=== PATIENT | female | born 1960 | race Caucasian/White ===

== ENCOUNTER 2023-09-22 10:24 | Inpatient (IN) | payer OTHER, SELFPAY ==
[2023-09-21] VITALS (7 sets, daily range): BP systolic 96–105; BP diastolic 52–57; BMI 41.6
--- NOTE | 2023-09-21 18:05 | ED.GENMED ---
History of Present Illness
<LEONORA Moreira - Last Filed: 09/21/23 23:14>
General
Chief Complaint: Abdominal Pain
Source: patient
Exam Limitations: none
Time Seen by Provider: 09/21/23 17:55
Travel History
Have you had any contact with someone who has COVID-19?: No
Do you have any symptoms of coronavirus? Fever > 100 degrees, chills, cough, shortness of breath, sore throat, loss of taste or smell, muscle aches, or headache?: Yes
Symptoms:: .
History of Present Illness
History of Present Illness:
This is a 62 year old female that comes in with Multiple complaints. States that she started with abd pain around 1pm in the middle of her abd. States that she also feels like she has a broken collar bone but there was no injury. States that she
was doing a lot of lifting and moving or furniture. States that this is like a muscle spasm. States that she had nausea, vomiting, and diarrhea. Denies any fever, chills, chest pain, SOB, headache, dizziness, urinary burning. Denies any falls or
injury.
Past History
<LEONORA Moreira - Last Filed: 09/21/23 23:14>
Past History
ED Past Medical History: HTN, Hypercholesterolemia, NIDDM, Renal failure (Remote history of renal failure secondary to dehydration), Hypothyroidism and Psychiatric (Anxiety)
ED Past Surgical History: Cholecystectomy and Other (Lumpectomy for benign disease)
Social History
Tobacco: Smoker
Alcohol: Occasional
Personal:
Living: with family
Family History
Family History: Negative Diabetes, Hypertension, Early CAD, Asthma or Cancer
Review of Systems
<LEONORA Moreira - Last Filed: 09/21/23 23:14>
Review of Systems
All Other Systems: ROS reviewed and negative except as documented in HPI and ROS
Constitutional: Reports no symptoms; Denies fever or chills
EENT: Reports no symptoms
Respiratory: Reports no symptoms; Denies cough or trouble breathing
Cardiac: Denies chest pain
ABD/GI: Reports abdominal pain, nausea, vomiting and diarrhea
: Reports no symptoms
Musculoskeletal: Reports other (right shoulder pain)
Skin: Reports no symptoms
Neurological: Reports no symptoms; Denies dizzy or headache
Psychiatric: Reports no symptoms
Phy Exam
<LEONORA Moreira - Last Filed: 09/21/23 23:14>
General Physical Exam
General Presentation: no apparent distress
General age: appears stated age
General Skin: warm and dry
General Habitus: obese
General Mental: alert
General Hydration: dry mucous membranes
ENT Exam
ENT Exam: TM's normal, pharynx normal and neck supple
Eye Exam
Eye Exam: EOMI
Cardiovascular Exam
Cardiovascular Exam: regular rate/rhythm, no edema and normal peripheral pulses
Pulmonary Exam
Pulmonary Exam: no respiratory distress, chest non tender, no rhonchi, no wheezing, no cough and decreased breath sounds (right sided with rales at bases)
Gastrointestinal Exam
Gastrointestinal Exam: normal bowel sounds, soft, no organomegaly, no pulsatile mass, non distended and tender (Generalized tenderness with palpation)
Musculoskeletal Exam
Musculoskeletal Exam: full ROM and no edema
Skin Exam
Skin Exam: normal color, warm/dry, no rash and no petechia
Psychiatric Exam
Psychiatric Exam: normal mood/affect
Course
<LEONORA Moreira - Last Filed: 09/21/23 23:14>
Orders/Labs/Results
Orders:
Orders
09/21/23 18:03
Electrocardiogram (*1) Urgent
Reason for Study: Abdominal Pain
EKG- Treatment ONCE
CR Chest - 2 Views Urgent
Comment:
Reason For Exam: rales right base, decreased breath Shoulder pain
09/21/23 18:04
CT Abd/pelvis W Iv Cont Urgent
Comment:
Reason For Exam: ABd pain
0.9% Sodium Chloride 1000 ml [Nss] 1,000 ml IV BOLUS
09/21/23 18:09
Complete Blood Count/With Diff Urgent
Comprehensive Metabolic Panel Urgent
Lipase Urgent
Comment: ADD ON
Troponin I Urgent
09/21/23 18:12
Ketorolac [Toradol] 30 mg IV NOW STA
09/21/23 19:19
Add On- LAB Urgent
Tests Added?: Lipase
09/21/23 20:15
Lactic Acid Urgent
09/21/23 21:30
Blood Culture Q30M
PARVEEN Source: Blood/Venous
Specimen Description:
09/21/23 21:38
Urinalysis Reflex To Culture Urgent
Date Specimen was Collected: 09/21/23
Time Specimen was Collected: 21:31
Urine Microscopic Reflex Cult Urgent
Urine Culture Urgent
PARVEEN Source: U
Specimen Description:
Date Specimen was Collected: 09/21/23
Time Specimen was Collected: 21:31
09/21/23 22:00
Blood Culture Q30M
PARVEEN Source: Blood/Venous
Specimen Description:
09/21/23 23:04
CefTRIAXone [Rocephin] 1,000 mg IV NOW STA
Abnormal Lab Results
09/21/23 09/21/23
18:09 21:38
WBC 26.0 H 10^3/uL
(4.8-10.8)
Plt Count 527 H 10^3/uL
(130-400)
Abs Immat Gran (auto) 0.2 H 10^3/uL
(0-0.05)
Absolute Neuts (auto) 23.6 H 10^3/uL
(1.4-6.5)
Absolute Monos (auto) 0.9 H 10^3/uL
(0.1-0.6)
Immature Gran % 0.7 H %
(0-0.5)
Neutrophils % 90.5 H %
(42.2-75.2)
Lymphocytes % 5.0 L %
(20.5-51.1)
Carbon Dioxide 18 L mmol/L
(22-30)
BUN 38 H mg/dl
(7-17)
Creatinine 1.4 H mg/dL
(0.6-1.0)
Glucose 123 H mg/dl
(70-99)
Urine Ketones 1+ A
(Negative)
Ur Occult Blood Reflex 1+ A
(Negative)
Urine Nitrite (Reflex) Positive A
(Negative)
Leukocyte Esterase Rfl 1+ A
(Negative)
Urine RBC 7-10 A /HPF
(0-2)
Urine WBC (Reflex) 16-20 A /HPF
(0-5)
Urine Bacteria (Reflex) Many A
(Negative)
09/21/23 18:09
09/21/23 18:09
Leukocytosis, Plt slightly elevated. Carbon dioxide low. Glucose nonfasting. Urine positive for infection. Troponin <0.012, Lactic acid normal at 1.3
Vital Signs
Initial and Last Documented VS:
Initial Vital Signs
Temp Pulse BP Pulse Ox
98.6 F 71 105/52 94
09/21/23 17:50 09/21/23 17:50 09/21/23 17:50 09/21/23 17:50
Last Documented Vital Signs
Temp Pulse BP Pulse Ox
98.6 F 89 98/57 93
09/21/23 17:50 09/21/23 21:00 09/21/23 21:00 09/21/23 21:00
<Júnior Voss MD - Last Filed: 09/21/23 21:29>
Orders/Labs/Results
Orders:
Orders
09/21/23 18:03
Electrocardiogram (*1) Urgent
Reason for Study: Abdominal Pain
EKG- Treatment ONCE
CR Chest - 2 Views Urgent
Comment:
Reason For Exam: rales right base, decreased breath Shoulder pain
09/21/23 18:04
CT Abd/pelvis W Iv Cont Urgent
Comment:
Reason For Exam: ABd pain
0.9% Sodium Chloride 1000 ml [Nss] 1,000 ml IV BOLUS
09/21/23 18:09
Complete Blood Count/With Diff Urgent
Comprehensive Metabolic Panel Urgent
Lipase Urgent
Comment: ADD ON
Troponin I Urgent
09/21/23 18:12
Ketorolac [Toradol] 30 mg IV NOW STA
09/21/23 19:19
Add On- LAB Urgent
Tests Added?: Lipase
09/21/23 20:15
Lactic Acid Urgent
09/21/23 21:30
Blood Culture Q30M
PARVEEN Source: Blood/Venous
Specimen Description:
09/21/23 21:38
Urinalysis Reflex To Culture Urgent
Date Specimen was Collected: 09/21/23
Time Specimen was Collected: 21:31
Urine Microscopic Reflex Cult Urgent
Urine Culture Urgent
PARVEEN Source: U
Specimen Description:
Date Specimen was Collected: 09/21/23
Time Specimen was Collected: 21:31
09/21/23 22:00
Blood Culture Q30M
PARVEEN Source: Blood/Venous
Specimen Description:
09/21/23 23:04
CefTRIAXone [Rocephin] 1,000 mg IV NOW STA
Abnormal Lab Results
09/21/23 09/21/23
18:09 21:38
WBC 26.0 H 10^3/uL
(4.8-10.8)
Plt Count 527 H 10^3/uL
(130-400)
Abs Immat Gran (auto) 0.2 H 10^3/uL
(0-0.05)
Absolute Neuts (auto) 23.6 H 10^3/uL
(1.4-6.5)
Absolute Monos (auto) 0.9 H 10^3/uL
(0.1-0.6)
Immature Gran % 0.7 H %
(0-0.5)
Neutrophils % 90.5 H %
(42.2-75.2)
Lymphocytes % 5.0 L %
(20.5-51.1)
Carbon Dioxide 18 L mmol/L
(22-30)
BUN 38 H mg/dl
(7-17)
Creatinine 1.4 H mg/dL
(0.6-1.0)
Glucose 123 H mg/dl
(70-99)
Urine Ketones 1+ A
(Negative)
Ur Occult Blood Reflex 1+ A
(Negative)
Urine Nitrite (Reflex) Positive A
(Negative)
Leukocyte Esterase Rfl 1+ A
(Negative)
Urine RBC 7-10 A /HPF
(0-2)
Urine WBC (Reflex) 16-20 A /HPF
(0-5)
Urine Bacteria (Reflex) Many A
(Negative)
09/21/23 18:09
09/21/23 18:09
Vital Signs
Initial and Last Documented VS:
Initial Vital Signs
Temp Pulse BP Pulse Ox
98.6 F 71 105/52 94
09/21/23 17:50 09/21/23 17:50 09/21/23 17:50 09/21/23 17:50
Last Documented Vital Signs
Temp Pulse BP Pulse Ox
98.6 F 89 98/57 93
09/21/23 17:50 09/21/23 21:00 09/21/23 21:00 09/21/23 21:00
<LEONORA Moreira - Last Filed: 09/21/23 23:14>
MDM/Problems Addressed
Differential Diagnosis Includes:
Muscle spasm. Enteritis,
MDM/Problems Addressed:
This is a 62 year old female that comes in with c/o abd pain and right shoulder pain. States that this started about 1pm today and has been constant. States that it also feels like she broke her collar bone but there was no injury.
Will check labs, chest pain, CT abd, Give IV fluids and pain medication.
Patient was seen by Dr. Voss. Back into see patient. Explained that her Urine does show infection. Patient will be given IV antibiotics and admitted. Hospitalist notified
Chronic conditions affecting care:
NA
Acute Exacerbation and/or Progression of Chronic Illness:
NA
<LEONORA Moreira - Last Filed: 09/21/23 23:14>
*Radiology
Radiology exam reviewed: radiology read reviewed (Chest-Mild elevation of right hemidiaphragm, unchanged. minimal left basilar subsegmental atelectasis. Pulmonary vascularity within the limits of normal. CT=Small volume free fluid in the abdomen
and small to moderate volume free fluid in the true pelvis. Markedly limited evaluation of intestinal ) and other (CT cont- evaluation of intestinal tract without oral contrast, without intestinal obstruction or free air. Some Small bowel fluid,
nonspecific, cannot exclude enteritis. Prior cholecystectomy. )
*Pulse Oximetry
Patient hypoxic: no
*Critical Care Note
Total Time (30-74mins, 75-104mins- exclusive of procedures): Not Applicable
ED Attending Note
<LEONORA Moreira - Last Filed: 09/21/23 23:14>
-
Portions of this chart may have been created with voice recognition software.� Occasional wrong word or��sound alike� substitutions may have occurred due to the inherent limitations of voice recognition software.
<Júnior Voss MD - Last Filed: 09/21/23 21:29>
ED Attending Note
Patient seen and examined by attending physician: Yes
I performed the substantive portion of visit, reviewed & personally made and approve the management plan that is documented in note by myself or EVI.: Yes
ED Attending Note:
62-year-old female with relatively sudden onset of abdominal pain associate with nausea vomiting followed by right shoulder pain about 1 PM today. Symptoms have persisted. No chest pain or shortness of breath. Some mild chronic cough.
No urinary symptoms.
On exam patient is nontoxic but does appear minimally uncomfortable. She has a few crackles in the right lung base. No CVA tenderness. Heart regular rate and rhythm. Abdomen elevated BMI mild to moderate epigastric tenderness. No rebound or
guarding no mass or hernia. She has an old scar in the right upper quadrant.
Labs and tests reviewed. Significant leukocytosis. She states she has had an elevated white count in the past although this white count is fairly significant. No obvious explanation at this time. She does have a few crackles in the right lung
base. Could this be an early clinical pneumonia?. Urinalysis pending. Warrants inpatient management given symptoms and leukocytosis
Discharge Plan
Departure
Patient Disposition: Admit
Date of Disposition: 09/21/23
Time of Disposition: 23:08
Admit to: Med/Surg
Presentation/result/management discussed w/ accepting MD/DO: Hospitalist
Patient with high blood pressure during this ER visit?: No
Condition: Good
Discharge Problem:
Abdominal pain, Urinary tract infection
Prescriptions:
No Action
cyclobenzaprine [Flexeril] 10 MG tablet
10 mg PO Q8HPRN PRN (Reason: pain) Qty: 14 0RF
hydrocodone-acetaminophen [Vicodin] 1 EACH tablet
1 ea PO Q6HPRN PRN (Reason: pain) Qty: 14 0RF
tramadol 50 MG tablet
50 mg PO Q6HPRN PRN (Reason: pain) Qty: 14 0RF
Referrals:
Soha Wagner, [Family Provider] -
Interventions
Interventions:
*Risk Screen - Suicide Last Done: 09/21/23 17:57
*General Assessment Last Done: 09/21/23 17:57
*Neglect/Abuse Screening Last Done: 09/21/23 17:57
ED- Fall Risk Assessment Last Done: 09/21/23 18:13
*ED COVID-19 Vaccine History Last Done: 09/21/23 17:57
ZE-Umyipx-Zvbmohvpds Assessment Last Done: 09/21/23 18:13
Discharge Date and Time
Print Language: YORUBA
[2023-09-21] MEDS: NSS 1000 IV (18:11)
[2023-09-21 18:31] LABS: % Basophils 0.2 % (0-2); % Eosinophils 0.2 % (0-6); % Immature Granulocytes 0.7 % (0-0.5); % Monocytes 3.4 % (1.7-9.3); % Neutrophils 90.5 % (42.2-75.2); Absolute Basophils 0.1 10^3/uL (0-0.2); Absolute Immature Granulocytes 0.2 10^3/uL (0-0.05); Absolute Lymphocytes 1.3 10^3/uL (1.2-3.4); Absolute Monocytes 0.9 10^3/uL (0.1-0.6); Absolute Neutrophils 23.6 10^3/uL (1.4-6.5); Hematocrit 41.8 % (37.0-47.0); Mean Corp Hgb Conc. 33.5 g/dL (33.0-37.0); Mean Corpuscular Volume 86.5 fL (81.0-99.0); Mean Platelet Volume 9.4 fL (7.4-10.4); Nucleated Red Blood Cells % 0 %; Platelet Count 527 10^3/uL (130-400); Red Blood Cell Count 4.83 10^6/uL (4.20-5.40); Red Cell Dist. Width 13.6 % (11.5-14.5)
[2023-09-21 18:48] LABS: ALT (SGPT) 12 U/L (0-35); AST (SGOT) 22 U/L (14-36); Albumin 4.1 g/dl (3.5-5.0); Alkaline Phosphatase 101 U/L (38-126); Blood Urea Nitrogen 38 mg/dl (7-17); Carbon Dioxide 18 mmol/L (22-30); Chloride 105 mmol/L (98-107); Estimated Creatinine Clearance 52 ml/min; Glucose 123 mg/dl (70-99); Potassium 3.6 mmol/L (3.5-5.1); Sodium 139 mmol/L (135-145); Total Bilirubin 0.6 mg/dl (0.2-1.3); Total Protein 7.3 g/dl (6.3-8.2); eGFR 43.07
[2023-09-21] MEDS: TORADOL 30 MG IV (18:50)
[2023-09-21 18:59] LABS: Troponin I < 0.012 ng/ml
[2023-09-21 19:57] LABS: Lipase 46 U/L (23-300)
[2023-09-21 20:36] LABS: Lactic Acid 1.3 mmol/L (0.7-2.0)
[2023-09-21 21:43] LABS: Urine Albumin Trace (Neg - Trace); Urine Bilirubin Negative (Negative); Urine Character Slightly Cloudy (Clear); Urine Color Yellow; Urine Glucose Negative (Negative); Urine Ketone 1+ (Negative); Urine Leukocyte 1+ (Negative); Urine Nitrite Positive (Negative); Urine Occult Blood 1+ (Negative); Urine Urobilinogen Negative (Neg - 1+)
[2023-09-21 21:51] LABS: Urine Bacteria Many (Negative); Urine Squamous Cell 16-20 /LPF (Few); Urine White Cell 16-20 /HPF (0-5)
[2023-09-21] MEDS: TYLENOL 1000 MG PO (23:17)
[2023-09-21] MEDS: ROCEPHIN 1000 MG IV (23:24)
--- NOTE | 2023-09-21 23:31 | HPS.HSE ---
Family Physician
-
Family Physician: Soha Wagner
Chief Complaint
-
abdominal pain
History of Present Illness
62-year-old female past medical history of hypertension, hypercholesteremia, diabetes, anxiety/depression, hypothyroidism presenting with multiple complaints. Her main complaint is abdominal pain starting at 1 PM today in the middle of her abdomen.
This was also associated with an episode of profuse watery diarrhea and vomiting. She had a cheeseburger and fries at [employer] at around 1:30 PM but this was after her symptoms started. She denies any fevers or chills. She denies any urinary
burning or frequency.
She also complains of pain in the area of her right collarbone with radiation of her pain to the shoulder and a little bit to the neck. Pain is worse when she lifts her right upper extremity upwards. She was doing a lot of lifting rocks and plants
and furniture yesterday which she thinks is responsible for the pain.
She denies chest pain, shortness of breath, headache, dizziness.
Medical History
Past Medical History
Past Medical History: Reports Other (hypertension, hypercholesteremia, diabetes, anxiety/depression, hypothyroidism)
Past Surgical History: Reports Cholecystectomy
Social History
Tobacco: Non-smoker
Alcohol: None
Drug: None
Family History
Family History: Not pertinent
Allergies / Home Medications
Allergies reflects when Allergies were last updated in [facility].
Home Medications with original date entered in [facility]
Allergy/Medication List:
Allergies
Allergy/AdvReac Type Severity Reaction Status Date / Time
NKA - No Known Allergies Allergy Severe Unknown Uncoded 09/21/23 17:56
Home Medications
alprazolam 0.25 mg tablet 0.25 mg PO BID PRN anxiety 09/21/23
amlodipine 10 mg tablet 10 mg PO DAILY 09/21/23
atenolol 100 mg-chlorthalidone 25 mg tablet 1 tab PO DAILY 09/21/23
benazepril 20 mg tablet 20 mg PO DAILY 09/21/23
levothyroxine 150 mcg tablet 150 mcg PO DAILY 09/21/23
paroxetine HCl 40 mg tablet 40 mg PO DAILY 09/21/23
simvastatin 10 mg tablet 10 mg PO DAILY 09/21/23
tirzepatide 10 mg/0.5 mL subcutaneous pen injector (Mounjaro) 10 mg SC TU@0800 09/21/23
Review of Systems
-
Constitutional: Reports No Symptoms
EENT: Reports No Symptoms
Respiratory: Reports No Symptoms
Cardiac: Reports No Symptoms
Abdomen/GI: Reports See HPI
: Reports No Symptoms
Musculoskeletal: Reports No Symptoms
Skin: Reports No Symptoms
Neurological: Reports No Symptoms
Endocrine: Reports No Symptoms
Hematologic/Lymphatic: Reports No Symptoms
Psych: Reports No Symptoms
Physical Exam
Vital Signs
Vital Signs
Temp Pulse BP Pulse Ox
98.6 F 89 98/57 93
09/21/23 17:50 09/21/23 21:00 09/21/23 21:00 09/21/23 21:00
Physical Exam
General: Well Developed, Well Nourished and No Apparent Distress
HEENT: NormoCephalic, Moist mucous membranes and Atraumatic
Respiratory: Clear
Cardiac: S1/S2 and Regular Rhythm; No Murmur or Rub
GI: Soft, Non Distended, Normal Bowel Sounds and Tender; No Organomegaly
Rectal: Deferred by Provider
Musculoskeletal: No Clubbing, No Cyanosis, No Edema and Other (right sternocleidomastoid tenderness, right shoulder tenderness )
Skin: No Rash
Neuro: Nonfocal/grossly intact
Laboratory Results
-
09/21/23 18:09
09/21/23 18:09
Laboratory Results
Lactic Acid Cancelled 09/21/23 21:27
Total Bilirubin 0.6 mg/dl (0.2-1.3) 09/21/23 18:09
AST 22 U/L (14-36) 09/21/23 18:09
ALT 12 U/L (0-35) 09/21/23 18:09
Alkaline Phosphatase 101 U/L (38-126) 09/21/23 18:09
Troponin I < 0.012 ng/ml 09/21/23 18:09
Lipase 46 U/L (23-300) 09/21/23 18:09
Data Reviewed
-
Lab Data: Labs Reviewed by me
Old Records: Reviewed
Impression/Plan
-
IMPRESSION:
PLAN:
# Likely gastroenteritis
-CT scan shows small volume free fluid in the abdomen small to moderate volume free fluid in the true pelvis, some small bowel fluid nonspecific cannot exclude enteritis
-Lipase negative
-N.p.o.
-No further diarrhea
-Check stool culture, norovirus if recurrent diarrhea
-IV fluids given
#Urinary tract infection
-Asymptomatic
-UA shows slightly cloudy urine, positive nitrates, 16-20 WBCs
-Check urine culture, blood cultures
-Ceftriaxone for now
# RYLEY versus CKD
-Continue IV fluids
-Hold chlorthalidone, benazepril
# Muscle soreness of sternocleidomastoid secondary to lifting
-Muscle is sore and tender to palpation
-Doubt rotator cuff injury
-Tylenol, ibuprofen for pain, ketorolac given
Essential hypertension
-Continue amlodipine
-Continue atenolol
Hypercholesterolemia
-Continue statin
Type 2 diabetes
Hypothyroidism
-Continue levothyroxine
Anxiety/depression
-Continue Xanax
-Continue paroxetine
Full code
DVT prophylaxis�heparin
N.p.o.
[2023-09-22] VITALS (9 sets, daily range): BP systolic 91–114; BP diastolic 50–70; BMI 41.6
[2023-09-22] MEDS: NSS 1000 IV ×2 (00:58→11:15)
[2023-09-22 05:40] LABS: % Basophils 0.2 % (0-2); % Eosinophils 0.1 % (0-6); % Immature Granulocytes 0.6 % (0-0.5); % Lymphocytes 4.6 % (20.5-51.1); % Monocytes 3.2 % (1.7-9.3); % Neutrophils 91.3 % (42.2-75.2); Absolute Basophils 0.1 10^3/uL (0-0.2); Absolute Immature Granulocytes 0.2 10^3/uL (0-0.05); Absolute Lymphocytes 1.3 10^3/uL (1.2-3.4); Absolute Monocytes 0.9 10^3/uL (0.1-0.6); Absolute Neutrophils 25.8 10^3/uL (1.4-6.5); Hematocrit 39.9 % (37.0-47.0); Mean Corp Hgb Conc. 32.6 g/dL (33.0-37.0); Mean Corpuscular Hgb 28.9 pg (27.0-31.0); Mean Corpuscular Volume 88.7 fL (81.0-99.0); Mean Platelet Volume 9.6 fL (7.4-10.4); Nucleated Red Blood Cells % 0 %; Platelet Count 435 10^3/uL (130-400); Red Cell Dist. Width 13.8 % (11.5-14.5); White Blood Cell Count 28.2 10^3/uL (4.8-10.8)
[2023-09-22 06:02] LABS: ALT (SGPT) 14 U/L (0-35); AST (SGOT) 21 U/L (14-36); Albumin 3.1 g/dl (3.5-5.0); Alkaline Phosphatase 75 U/L (38-126); Blood Urea Nitrogen 36 mg/dl (7-17); Calcium 9.1 mg/dl (8.4-10.2); Carbon Dioxide 18 mmol/L (22-30); Chloride 107 mmol/L (98-107); Estimated Creatinine Clearance 48 ml/min; Glucose 120 mg/dl (70-99); Potassium 3.8 mmol/L (3.5-5.1); Sodium 137 mmol/L (135-145); Total Bilirubin 0.5 mg/dl (0.2-1.3); eGFR 39.65
[2023-09-22] MEDS: SYNTHROID 150 MCG PO (06:19)
[2023-09-22] MEDS: HEPARIN 5000 UNITS SC ×2 (08:26→20:11)
[2023-09-22] MEDS: LIPITOR 10 MG PO (08:27)
[2023-09-22] MEDS: TYLENOL 650 MG PO (08:35)
[2023-09-22] MEDS: PAXIL 40 MG PO (08:35)
[2023-09-22] MEDS: TENORMIN PO (08:35)
[2023-09-22] MEDS: NORVASC PO (08:35)
--- NOTE | 2023-09-22 10:07 | W.PN.HOSP.TC ---
Today's Communication/Plan
-
see outlined plan
Assessment / Plan
Assessment / Plan
Assessment:
Abdominal discomfort, nausea/vomiting, diarrhea
- discomfort persists, other symptoms resolved
- CT: Small volume free fluid in the abdomen and small to moderate volume free fluid in the true pelvis. Markedly limited evaluation of intestinal tract without oral contrast, without intestinal obstruction or free air. Some small bowel fluid,
nonspecific, cannot exclude enteritis.
- on Rocephin for UTI, will switch to Unasyn to cover GI pathology
- supportive care including IVF, pain control, anti-emetics and gasX
- stool studies if diarrhea returns
- diet: clears as tolerated
Leukocytosis
Urinary tract infection
- switch to Unasyn as above
- follow cultures
RYLEY
- reviewed previous 1 years lab on her portal, baseline Cr 1.1
- continue IVF
- hold nephrotoxic agents (chlorthalidone, benazepril)
Muscle soreness of sternocleidomastoid secondary to lifting
- Muscle is sore and tender to palpation
- Doubt rotator cuff injury
- prn Tylenol
- s/p 1 dose Toradol in ER
- add heat pad
Essential hypertension
- continue amlodipine
- continue atenolol
- parameters placed
Hypercholesterolemia
- continue statin
Type 2 diabetes
- diet controlled
Hypothyroidism
- continue levothyroxine
Anxiety/depression
- continue Xanax
- continue paroxetine
DVT ppx: SC heparin
Code: Full
Anticipated Discharge: > 48 hours
Subjective/Interval History
-
Date of Service: September 22, 2023
reports pain improving, more so discomfort now, she feels gas build up
no further vomiting, nausea, diarrhea
not particular hungry
no fevers
Objective Data
-
Labs:
Laboratory Results
09/22/23
04:59
WBC 28.2 H
Hgb 13.0
Hct 39.9
Plt Count 435 H
Sodium 137
Potassium 3.8
Chloride 107
Carbon Dioxide 18 L
BUN 36 H
Creatinine 1.5 H
Glucose 120 H
Calcium 9.1
Total Bilirubin 0.5
AST 21
ALT 14
Alkaline Phosphatase 75
Vital Signs:
Vital Signs
Temp Pulse Resp BP Pulse Ox
97.9 F 77 16 93/51 92
09/22/23 08:30 09/22/23 08:30 09/22/23 08:30 09/22/23 08:35 09/22/23 08:30
I&O
09/21/23 09/22/23 09/23/23
06:59 06:59 06:59
Intake Total 700 / 700
Balance 700 / 700
Physical Exam
-
General: No Apparent Distress
HEENT: Normocephalic and Atraumatic
Cardiac: Regular Rhythm and S1/S2
GI: Tender (mildly) and Distended (slightly, )
Genito-urinary: No Costovertebral Tender
Musculoskeletal: No Edema
Neuro: AO x 3
Hematologic / Lymphatic: No Lymphadenopathy
Psych: Calm
Data Reviewed
-
Total Time Spent with Patient (in minutes): 45
Labs: Labs Reviewed by me
[2023-09-22] MEDS: UNASYN IV ×3 (12:38→23:31)
[2023-09-22] MEDS: SODIUM BICARBONATE 1150 MEQ IV (14:16)
[2023-09-22] MEDS: MYLICON 80 MG PO ×2 (14:17→20:11)
[2023-09-22] MEDS: XANAX 0.25 MG PO (22:11)
[2023-09-23] VITALS (22 sets, daily range): BP systolic 89–137; BP diastolic 42–78
--- NOTE | 2023-09-23 02:15 | PTCARENOTE ---
Patient admitted for gastroenteritis and reported 3 episodes of diarrhea, not visualized by RN. [employer] notified and orders placed for stool studies and probiotics, see MAR. Care ongoing.
[2023-09-23] MEDS: VISBIOME 1 CAP PO ×2 (02:22→08:09)
[2023-09-23] MEDS: UNASYN IV (05:29)
[2023-09-23] MEDS: SYNTHROID 150 MCG PO (05:29)
[2023-09-23 05:33] LABS: % Basophils 0.3 % (0-2); % Lymphocytes 2.7 % (20.5-51.1); % Monocytes 1.6 % (1.7-9.3); % Neutrophils 94.4 % (42.2-75.2); Absolute Basophils 0.1 10^3/uL (0-0.2); Absolute Immature Granulocytes 0.3 10^3/uL (0-0.05); Absolute Lymphocytes 0.9 10^3/uL (1.2-3.4); Absolute Monocytes 0.5 10^3/uL (0.1-0.6); Absolute Neutrophils 29.8 10^3/uL (1.4-6.5); Hemoglobin 13.5 g/dL (12.0-16.0); Mean Corp Hgb Conc. 32.9 g/dL (33.0-37.0); Mean Corpuscular Hgb 28.7 pg (27.0-31.0); Mean Platelet Volume 9.4 fL (7.4-10.4); Nucleated Red Blood Cells % 0 %; Platelet Count 430 10^3/uL (130-400); Red Blood Cell Count 4.71 10^6/uL (4.20-5.40); Red Cell Dist. Width 13.7 % (11.5-14.5); White Blood Cell Count 31.6 10^3/uL (4.8-10.8)
[2023-09-23 06:07] LABS: Blood Urea Nitrogen 28 mg/dl (7-17); Calcium 9.2 mg/dl (8.4-10.2); Carbon Dioxide 23 mmol/L (22-30); Chloride 101 mmol/L (98-107); Estimated Creatinine Clearance 66 ml/min; Glucose 122 mg/dl (70-99); Potassium 2.8 mmol/L (3.5-5.1); Sodium 135 mmol/L (135-145); eGFR 57.52
[2023-09-23] MEDS: KCL 40 MEQ PO (06:18)
[2023-09-23] MEDS: PAXIL 40 MG PO (08:09)
[2023-09-23] MEDS: NORVASC 10 MG PO (08:09)
[2023-09-23] MEDS: HEPARIN 5000 UNITS SC ×2 (08:10→21:28)
[2023-09-23] MEDS: LIPITOR 10 MG PO (08:10)
[2023-09-23] MEDS: TENORMIN 100 MG PO (08:10)
[2023-09-23] MEDS: KCL 270 MEQ IV (08:29)
--- NOTE | 2023-09-23 11:30 | W.PN.HOSP.TC ---
Today's Communication/Plan
-
await urgent repeat CT imaging
await Lipase/LFTs
increase Abx to Zosyn pending result
Assessment / Plan
Assessment / Plan
Assessment:
Abdominal discomfort, nausea/vomiting, diarrhea
- CT: Small volume free fluid in the abdomen and small to moderate volume free fluid in the true pelvis. Markedly limited evaluation of intestinal tract without oral contrast, without intestinal obstruction or free air. Some small bowel fluid,
nonspecific, cannot exclude enteritis.
- unfortunately still having pain, also diarrhea. Stool studies pending (C. Diff negative)
- worsening leukocytosis - will repeat CT with PO And IV Contrast
- for now will increase Abx to Zosyn pending CT imaging
- continue IVF, pain control, anti-emetics
- consider consult GI
Leukocytosis
Urinary tract infection
- continue Abx (see above, now Zosyn) pending cultures
RYLEY
- reviewed previous 1 years lab on her portal, baseline Cr 1.1
- continue IVF
- hold nephrotoxic agents (chlorthalidone, benazepril)
Muscle soreness of sternocleidomastoid secondary to lifting
- Muscle is sore and tender to palpation
- Doubt rotator cuff injury
- prn Tylenol
- s/p 1 dose Toradol in ER
- add heat pad
Essential hypertension
- continue amlodipine
- continue atenolol
- parameters placed
Hypercholesterolemia
- continue statin
Type 2 diabetes
- diet controlled
- holding Mounjaro
Hypothyroidism
- continue levothyroxine
Anxiety/depression
- continue Xanax
- continue paroxetine
Hypokalemia
- replete oral and IV
DVT ppx: SC heparin
Code: Full
Anticipated Discharge: > 48 hours
Subjective/Interval History
-
Date of Service: September 23, 2023
worsening abd pain and diarrhea x 5 today
C. Diff negative
not appetite, not hungry today
Objective Data
-
Labs:
Laboratory Results
09/23/23
05:21
WBC 31.6 H
Hgb 13.5
Hct 41.0
Plt Count 430 H
Sodium 135
Potassium 2.8 L D
Chloride 101
Carbon Dioxide 23
BUN 28 H
Creatinine 1.1 H
Glucose 122 H
Calcium 9.2
Vital Signs:
Vital Signs
Temp Pulse Resp BP Pulse Ox
97.6 F 113 22 115/66 96
09/23/23 07:30 09/23/23 08:10 09/23/23 07:30 09/23/23 08:10 09/23/23 07:30
I&O
09/22/23 09/23/23 09/24/23
06:59 06:59 06:59
Intake Total 700 / 700 2059
Balance 700 / 700 2059
Physical Exam
-
General: No Apparent Distress
HEENT: Normocephalic and Atraumatic
Respiratory: Negative Wheezes
Cardiac: Regular Rhythm and S1/S2
GI: Tender (epigastric and LUQ tenderness to deep palptation)
Genito-urinary: No Costovertebral Tender
Musculoskeletal: No Edema
Neuro: AO x 3
Hematologic / Lymphatic: No Lymphadenopathy
Psych: Calm
Data Reviewed
-
Total Time Spent with Patient (in minutes): 42
Labs: Labs Reviewed by me
[2023-09-23] MEDS: OMNIPAQUE 50 ML PO (11:55)
[2023-09-23] MEDS: ZOSYN 50 IV ×3 (12:08→23:03)
[2023-09-23 12:11] LABS: ALT (SGPT) 17 U/L (0-35); AST (SGOT) 21 U/L (14-36); Albumin 3.3 g/dl (3.5-5.0); Alkaline Phosphatase 104 U/L (38-126); Direct Bilirubin 0.3 mg/dl (0.0-0.4); Lipase 12 U/L (23-300); Total Bilirubin 0.4 mg/dl (0.2-1.3); Total Protein 6.3 g/dl (6.3-8.2)
--- NOTE | 2023-09-23 14:00 | CM ---
Met with pt at bedside
Lives with her , daughter and mother in a 2 story home
Independent, house management, cooks
Has ride at d/c
DME - none
SNF/HH - denies past hx
PCP - Soha Wagner
Pharm - [facility]
CM will follow for d/c needs
Plan - anticipate home no needs vs with HH
--- NOTE | 2023-09-23 16:15 | PN.CDI ---
CDI
- -
CDI:
Physician Documentation Request
Admit Date: 09/22/23 10:24
Dear Doctor Nataly,
Clinical Indicators:
Height: 5 ft 4 in
Weight: 242
BMI: 41.6
If possible, please provide an associated diagnosis related to the abnormal BMI, such as:
BMI > or = to 40
Overweight
Obesity:
Due to excess calories
Drug induced
Due to other cause
Severe or morbid obesity:
With alveolar hypoventilation (Obesity hypoventilation syndrome)
Without alveolar hypoventilation
- BMI is not significant
- Other
Use of terms such as suspected, likely, concern for, or probable (associated with a specific diagnosis that is being evaluated, monitored, or treated as if it exists) are acceptable and can be coded in the inpatient setting, when documented at the
time of discharge.
Thank you,
Jennifer Varma RN BSN
CDI Specialist
tiger text
Please use your independent medical judgment in providing your response.
--- NOTE | 2023-09-23 17:38 | W.PN.UPDATE ---
Update Note
Progress Note Update
Stat CT: Abnormal fluid collection in the right paracolic cutter measuring 6.8 x 3.6 x 4.8 cm immediately lateral to the appendix and adjacent to the cecum. Although the appendix is within the limits of normal in caliber there are some accompanying
inflammatory changes. Findings are suspicious for confined/contained perforated appendicitis or inflammatory/infectious process of the adjacent cecum such as perforated diverticulitis. No free air.
Plan: transfer IMU, bolus IVF, continue Zosyn. IRAD consult for drain to be place tonight. GS consulted. Patient and family updated.
[2023-09-23] MEDS: NSS 1000 IV (17:51)
--- NOTE | 2023-09-23 19:26 | PTCARENOTE ---
Patient transported to IR, verbal report from dayshift RN obtained. Patient to be transferred to IMU following procedure.
--- NOTE | 2023-09-23 20:06 | W.PN.UPDATE ---
Update Note
Progress Note Update
8.5F pigtail drain placed into RLQ periappendiceal fluid collection.
[2023-09-23] MEDS: MYLICON 80 MG PO (21:28)
[2023-09-23] MEDS: XANAX 0.25 MG PO (23:03)
[2023-09-24] VITALS (19 sets, daily range): BP systolic 98–150; BP diastolic 55–108
[2023-09-24 04:51] LABS: % Basophils 0.3 % (0-2); % Eosinophils 0.1 % (0-6); % Immature Granulocytes 1.3 % (0-0.5); % Lymphocytes 2.9 % (20.5-51.1); % Monocytes 1.6 % (1.7-9.3); % Neutrophils 93.8 % (42.2-75.2); Absolute Basophils 0.1 10^3/uL (0-0.2); Absolute Immature Granulocytes 0.4 10^3/uL (0-0.05); Absolute Lymphocytes 0.9 10^3/uL (1.2-3.4); Absolute Monocytes 0.5 10^3/uL (0.1-0.6); Hematocrit 35.6 % (37.0-47.0); Hemoglobin 12.2 g/dL (12.0-16.0); Mean Corp Hgb Conc. 34.3 g/dL (33.0-37.0); Mean Corpuscular Volume 84.8 fL (81.0-99.0); Mean Platelet Volume 9.5 fL (7.4-10.4); Nucleated Red Blood Cells % 0 %; Platelet Count 449 10^3/uL (130-400); White Blood Cell Count 30.9 10^3/uL (4.8-10.8)
[2023-09-24 05:21] LABS: Blood Urea Nitrogen 30 mg/dl (7-17); Calcium 9.7 mg/dl (8.4-10.2); Carbon Dioxide 16 mmol/L (22-30); Chloride 105 mmol/L (98-107); Estimated Creatinine Clearance 52 ml/min; Glucose 105 mg/dl (70-99); Potassium 2.9 mmol/L (3.5-5.1); Sodium 136 mmol/L (135-145); eGFR 43.07
[2023-09-24] MEDS: SYNTHROID 150 MCG PO (05:47)
[2023-09-24] MEDS: KCL 40 MEQ PO (05:47)
[2023-09-24] MEDS: ZOSYN 50 IV ×3 (05:47→17:19)
[2023-09-24] MEDS: KCL 270 MEQ IV (05:48)
--- NOTE | 2023-09-24 06:41 | PTCARENOTE ---
Received patient from the PACU overnight. Copious amounts of watery diarrhea- over 1500 ml overnight. Right SARA drain with 90 ml output.
--- NOTE | 2023-09-24 06:57 | PTCARENOTE ---
AM k 2.9- percussion instrument repairer provider made aware and ordered repletion.
[2023-09-24] MEDS: LIPITOR 10 MG PO (08:01)
[2023-09-24] MEDS: PAXIL 40 MG PO (08:02)
[2023-09-24] MEDS: NORVASC 10 MG PO (08:02)
[2023-09-24] MEDS: VISBIOME 1 CAP PO (08:03)
[2023-09-24] MEDS: HEPARIN 5000 UNITS SC ×2 (08:04→20:17)
[2023-09-24] MEDS: TENORMIN 100 MG PO (08:04)
--- NOTE | 2023-09-24 09:02 | W.PN.HOSP.TC ---
Today's Communication/Plan
-
continue drainage
continue IV Abx and IVF; monitor labs
follow GS recs
Assessment / Plan
Assessment / Plan
Assessment:
Contained perforated appendicitis with abscess
- CT: Abnormal fluid collection in the right paracolic cutter measuring 6.8 x 3.6 x 4.8 cm immediately lateral to the appendix and adjacent to the cecum. Although the appendix is within the limits of normal in caliber there are some accompanying
inflammatory changes. Findings are suspicious for confined/contained perforated appendicitis or inflammatory/infectious process of the adjacent cecum such as perforated diverticulitis. No free air.
- s/p IRAD guided drainage 09/22
- continue IV Zosyn, day 2
- continue IVF, pain control, anti-emetics
- diet: LRD
- GS consulted
E. Coli UTI
- continue IV Zosyn, day 2
RLYEY
- reviewed previous 1 years lab on her portal, baseline Cr 1.1
- continue IVF (bicarb)
- hold nephrotoxic agents (chlorthalidone, benazepril)
Muscle soreness of sternocleidomastoid secondary to lifting
- Muscle is sore and tender to palpation
- Doubt rotator cuff injury
- prn Tylenol
- s/p 1 dose Toradol in ER; hold further NSAIDs with RYLEY
- continue heat pad
Essential hypertension
- continue amlodipine
- continue atenolol
- parameters placed
Hypercholesterolemia
- continue statin
Type 2 diabetes
- diet controlled
- holding Mounjaro
Hypothyroidism
- continue levothyroxine
Anxiety/depression
- continue Xanax
- continue paroxetine
Hypokalemia
- replete oral and IV
Obesity
DVT ppx: SC heparin
Code: Full
Anticipated Discharge: > 48 hours
Subjective/Interval History
-
Date of Service: September 24, 2023
s/p IR drain placement last evening for jacques-appendiceal abscess
Objective Data
-
Labs:
Laboratory Results
09/24/23
04:32
WBC 30.9 H
Hgb 12.2
Hct 35.6 L
Plt Count 449 H
Sodium 136
Potassium 2.9 L
Chloride 105
Carbon Dioxide 16 L
BUN 30 H
Creatinine 1.4 H
Glucose 105 H
Calcium 9.7
Vital Signs:
Vital Signs
Temp Pulse Resp BP Pulse Ox
98.3 F 78 24 121/78 95
09/24/23 04:10 09/24/23 08:30 09/24/23 08:30 09/24/23 08:04 09/24/23 08:45
I&O
09/23/23 09/24/23 09/25/23
06:59 06:59 06:59
Intake Total 2059 490 / 490
Output Total 1495 / 1495
Balance 2059 -1005 / -1005
Physical Exam
-
General: No Apparent Distress
HEENT: Normocephalic and Atraumatic
Respiratory: Negative Wheezes
Cardiac: Regular Rhythm and S1/S2
GI: Tender
Musculoskeletal: No Edema
Neuro: AO x 3
Hematologic / Lymphatic: No Lymphadenopathy
Psych: Calm
Data Reviewed
-
Total Time Spent with Patient (in minutes): 45
CT Scan: Report Reviewed by me
Labs: Labs Reviewed by me
[2023-09-24] MEDS: SODIUM BICARBONATE 1150 MEQ IV (10:12)
[2023-09-24] MEDS: MYLICON 80 MG PO ×3 (13:39→20:24)
--- NOTE | 2023-09-24 14:26 | CON.GS ---
Addendum entered and electronically signed by Rony Saunders MD 09/24/23 14:49:
I saw and examined the patient.
The Heating Fixture Tender's note was reviewed and I agree with the note.
Comment: Perforated appendicitis with RUQ abscess, appendix is in atypical position high in the RUQ abutting the inferior edge of the liver; drain functioning, feels somewhat improved. Plan to cont IV abx and drain, OK for diet. Trend WBC.
Original Note:
Consultation
-
Date/Time Consultation Requested: 09/22/24 1726
Requesting Provider: Nataly
Medical History
-
Chief Complaint: abdominal pain
History of Present Illness:
Ms. Ruiz is a 62 yo female with a h/o open cholecystectomy, DM and hypothyroid who presented with mid abdominal abdominal pain through the ED on 09/20. She notes that her pain stretched across her mid abdomen across bilaterally and up into her right
side to her shoulder without associated nausea or vomiting. Her pain started after doing some yard work and eating a large fast food meal. UTI was noted in the ED with CT read as relatively benign. She has had liquid and frequent stools since
admission with stool studies thus far negative. UTI was noted on presentation and antibiotics were started for management. She has had no fevers or chills but has been tachypneic although she denies respiratory complaints. She denies nausea but does
note diminished appetite.
Past Medical History
Past Medical History: HTN, Hypercholesterolemia, Hypothyroidism, NIDDM and Psychiatric (anxiety/depression)
Past Surgical History: Cholecystectomy (open) and Other (breast lumpectomy)
Social History
Tobacco: Non-Smoker
Alcohol: None
Family History
Family History: Reviewed & Not Pertinent
Allergies / Home Medications
Allergy/AdvReac Type Severity Reaction Status Date / Time
NKA - No Known Allergies Allergy Severe Unknown Uncoded 09/21/23 17:56
�Medication �Instructions �Recorded �Confirmed �Type
alprazolam 0.25 mg tablet 0.25 mg PO BID PRN anxiety 09/21/23 09/21/23 History
amlodipine 10 mg tablet 10 mg PO DAILY Blood Pressure 09/21/23 09/21/23 History
atenolol 100 mg-chlorthalidone 25 1 tab PO DAILY Blood Pressure 09/21/23 09/21/23 History
mg tablet
benazepril 20 mg tablet 20 mg PO DAILY Blood Pressure 09/21/23 09/21/23 History
levothyroxine 150 mcg tablet 150 mcg PO DAILY Thyroid 09/21/23 09/21/23 History
paroxetine HCl 40 mg tablet 40 mg PO DAILY Mental Health 09/21/23 09/21/23 History
simvastatin 10 mg tablet 10 mg PO DAILY High Cholesterol 09/21/23 09/21/23 History
tirzepatide 10 mg/0.5 mL 10 mg SC TU@0800 weight loss 09/21/23 09/21/23 History
subcutaneous pen injector
(Felipe)
Review of Systems
-
History Source: Patient
All other systems: Negative unless noted
A 10 point review of systems was completed, and was negative except as per HPI.
Physical Exam
Vital Signs
Temp Pulse Resp BP Pulse Ox
98.5 F 76 34 117/76 93
09/24/23 11:45 09/24/23 12:30 09/24/23 12:30 09/24/23 12:00 09/24/23 12:30
09/23/23 09/24/23 09/25/23
06:59 06:59 06:59
Actual Weight 109.724 kg
Body Mass Index (BMI) 41.6
Lab Results
09/24/23 04:32
09/24/23 04:32
WBC 30.9 10^3/uL (4.8-10.8) H 09/24/23 04:32
Hgb 12.2 g/dL (12.0-16.0) 09/24/23 04:32
Hct 35.6 % (37.0-47.0) L 09/24/23 04:32
Plt Count 449 10^3/uL (130-400) H 09/24/23 04:32
Abs Immat Gran (auto) 0.4 10^3/uL (0-0.05) H 09/24/23 04:32
Neutrophils % 93.8 % (42.2-75.2) H 09/24/23 04:32
Physical Exam
General: Comfortable
Respiratory: Non Labored Respirations
GI: Soft and Tender (right mid abdomen )
Skin: Warm and Other (IR drain with purulent drainage)
Neuro: Awake, Alert and AO x 3
Psych: Calm
Data Reviewed
-
CT Scan: Image Personally Visualized and interpreted, Report Reviewed by me, Discussed with Physician and Discussed with Patient
Labs: Labs Reviewed by me, Discussed with Physician and Discussed with Patient
Old Records: Reviewed
Assessment / Plan
-
Ms. Ruiz is a 62 yo female with a h/o open cholecystectomy, DM and hypothyroid who presented with mid abdominal abdominal pain on 09/21/23. Initial CT read as relatively benign. UTI noted and antibiotics were initiated on presentation. She was not
improving clinically. WBC noted to be rising with no improvement/worsening in pain and thus repeat imaging was preformed last night with findings consistent with perforated appendicitis with abscess. The appendix is retrocecal which would likely
explain the atypical location of her pain. IR drain was placed yesterday evening with purulent fluid noted. Since drain placement, pain has improved. WBC mildly improved. No fevers. Poor appetite. VSS.
No plans for emergent surgery today. Will eventually need OP colonoscopy and interval appendectomy in approx 6-8 weeks once surrounding inflammation/abscess resolved.
--Ok for low residue diet as tolerated.
--Continue IV abx. Zosyn should offer good GI and coverage.
--Continue IR drain, cx pending
--Medical management as per primary team
[2023-09-24] MEDS: XANAX 0.25 MG PO (21:07)
[2023-09-25] VITALS (11 sets, daily range): BP systolic 107–125; BP diastolic 60–79
[2023-09-25] MEDS: ZOSYN 50 IV ×5 (00:03→23:00)
[2023-09-25] MEDS: SODIUM BICARBONATE 1150 MEQ IV (01:00)
[2023-09-25 04:29] LABS: % Basophils 0.3 % (0-2); % Eosinophils 0.3 % (0-6); % Immature Granulocytes 0.7 % (0-0.5); % Lymphocytes 3.7 % (20.5-51.1); % Monocytes 3.9 % (1.7-9.3); % Neutrophils 91.1 % (42.2-75.2); Absolute Basophils 0.1 10^3/uL (0-0.2); Absolute Eosinophils 0.1 10^3/uL (0-0.7); Absolute Immature Granulocytes 0.2 10^3/uL (0-0.05); Absolute Monocytes 1.1 10^3/uL (0.1-0.6); Absolute Neutrophils 25.1 10^3/uL (1.4-6.5); Hematocrit 38.6 % (37.0-47.0); Hemoglobin 12.9 g/dL (12.0-16.0); Mean Corp Hgb Conc. 33.4 g/dL (33.0-37.0); Mean Corpuscular Hgb 29.3 pg (27.0-31.0); Mean Corpuscular Volume 87.5 fL (81.0-99.0); Mean Platelet Volume 9.6 fL (7.4-10.4); Nucleated Red Blood Cells % 0 %; Platelet Count 475 10^3/uL (130-400); Red Blood Cell Count 4.41 10^6/uL (4.20-5.40); Red Cell Dist. Width 13.9 % (11.5-14.5); White Blood Cell Count 27.5 10^3/uL (4.8-10.8)
[2023-09-25 04:54] LABS: Blood Urea Nitrogen 29 mg/dl (7-17); Carbon Dioxide 18 mmol/L (22-30); Chloride 101 mmol/L (98-107); Estimated Creatinine Clearance 66 ml/min; Glucose 94 mg/dl (70-99); Potassium 3.3 mmol/L (3.5-5.1); Sodium 135 mmol/L (135-145); eGFR 57.52
--- NOTE | 2023-09-25 05:40 | PTCARENOTE ---
Rectal trumpet removed per patient request overnight. Diarrhea resolving. AM k 3.3- data migration lead provider made aware and ordered repletion. Right SARA drain with 40 output overnight.
[2023-09-25] MEDS: KCL 270 MEQ IV (05:58)
[2023-09-25] MEDS: SYNTHROID 150 MCG PO (05:58)
[2023-09-25] MEDS: NORVASC 10 MG PO (08:38)
[2023-09-25] MEDS: VISBIOME 1 CAP PO (08:38)
[2023-09-25] MEDS: TENORMIN 100 MG PO (08:38)
[2023-09-25] MEDS: PAXIL 40 MG PO (08:38)
[2023-09-25] MEDS: MYLICON 80 MG PO (08:38)
[2023-09-25] MEDS: HEPARIN 5000 UNITS SC ×2 (08:39→20:30)
[2023-09-25] MEDS: LIPITOR 10 MG PO (08:39)
--- NOTE | 2023-09-25 13:51 | W.PN.HOSP.TC ---
Today's Communication/Plan
-
continue SARA drainage
continue IV Abx pending cultures and follow WBC
Assessment / Plan
Assessment / Plan
Assessment:
Contained perforated appendicitis with abscess
- CT: Abnormal fluid collection in the right paracolic cutter measuring 6.8 x 3.6 x 4.8 cm immediately lateral to the appendix and adjacent to the cecum. Although the appendix is within the limits of normal in caliber there are some accompanying
inflammatory changes. Findings are suspicious for confined/contained perforated appendicitis or inflammatory/infectious process of the adjacent cecum such as perforated diverticulitis. No free air.
- s/p IRAD guided drainage 09/22
- continue IV Zosyn, day 3
- continue IVF, pain control, anti-emetics
- diet: LRD
- GS following
E. Coli UTI
- continue IV Zosyn, day 3
RYLEY
- reviewed previous 1 years worth of labs on her portal, baseline Cr 1.1
- received nearly 3 liters IVF
- hold nephrotoxic agents (chlorthalidone, benazepril)
Muscle soreness of sternocleidomastoid secondary to lifting
- Muscle is sore and tender to palpation
- Doubt rotator cuff injury
- prn Tylenol
- s/p 1 dose Toradol in ER; hold further NSAIDs with RYLEY
- continue heat pad
Essential hypertension
- continue amlodipine
- continue atenolol
- parameters placed
Hypercholesterolemia
- continue statin
Type 2 diabetes
- diet controlled
- holding Mounjaro
Hypothyroidism
- continue levothyroxine
Anxiety/depression
- continue Xanax
- continue paroxetine
Hypokalemia
- replete as needed
Obesity
DVT ppx: SC heparin
Code: Full
Anticipated Discharge: 24 - 48 hours
Subjective/Interval History
-
Date of Service: September 25, 2023
WBC improving
no new complaints, gas pains improving
Objective Data
-
Labs:
Laboratory Results
09/25/23
04:12
WBC 27.5 H
Hgb 12.9
Hct 38.6
Plt Count 475 H
Sodium 135
Potassium 3.3 L
Chloride 101
Carbon Dioxide 18 L
BUN 29 H
Creatinine 1.1 H
Glucose 94
Calcium 9.0
Vital Signs:
Vital Signs
Temp Pulse Resp BP Pulse Ox
98.2 F 73 27 124/69 94
09/25/23 11:44 09/25/23 12:00 09/25/23 12:00 09/25/23 12:00 09/25/23 12:00
I&O
09/24/23 09/25/23 09/26/23
06:59 06:59 06:59
Intake Total 490 / 490 1480 / 1480
Output Total 1495 / 1495 60 / 60
Balance -1005 / -1005 1420 / 1420
Physical Exam
-
General: No Apparent Distress
HEENT: Normocephalic and Atraumatic
Respiratory: Negative Wheezes
Cardiac: Regular Rhythm and S1/S2
GI: Soft and Nontender
Neuro: AO x 3
Hematologic / Lymphatic: No Lymphadenopathy
Psych: Calm
Data Reviewed
-
Total Time Spent with Patient (in minutes): 42
Labs: Labs Reviewed by me
--- NOTE | 2023-09-25 14:02 | W.PN.GS2 ---
Addendum entered and electronically signed by Rony Saunders MD 09/25/23 19:50:
I saw and examined the patient.
The Astronomy Department Chair's note was reviewed and I agree with the note.
Comment: Incremental improvement, less pain, diarrhea is resolving. Exam slightly better but still quite ttp to RUQ where the collection is. Drain output clearing. Plan to cont IV abx. OK for diet.
Original Note:
Today's Communication / Plan
-
Continue IR drain
Assessment / Plan
-
Ms. Ruiz is a 62 yo female with a h/o open cholecystectomy, DM and hypothyroid who presented with mid abdominal abdominal pain on 09/21/23. Initial CT read as relatively benign. UTI noted and antibiotics were initiated on presentation. She was not
improving clinically. WBC noted to be rising with no improvement/worsening in pain and thus repeat imaging was preformed with findings consistent with perforated appendicitis with abscess.
PPD #2 IR drain placement
Clinically improving
Still with marked leukocytosis but trending down, AFVSS.
Diarrhea improving
Stool studies thus far neg
Urine cx +ecoli, Drain cx +ecoli. Blood cx NGTD
No plans for emergent surgery. Will eventually need OP colonoscopy and interval appendectomy in approx 6-8 weeks once surrounding inflammation/abscess resolved.
--Ok for low residue diet as tolerated.
--Continue IV abx for both GI and coverage.
--Continue IR drain, await sensitivities
--Medical management as per primary team
Subjective Data
-
Date of Service: September 25, 2023
Patient seen and examined at bedside with Dr. Saunders. Denies n/v. Tolerating diet but eating only small amounts. Diarrhea improving, rectal tube now out and she is ambulating to the bathroom. Right sided abdominal discomfort persists but is
improved.
Objective Data
-
Intake and Output
09/24/23 09/25/23 09/26/23
06:59 06:59 06:59
Intake Total 490 / 490 1480 / 1480
Output Total 1495 / 1495 60 / 60
Balance -1005 / -1005 1420 / 1420
Intake:
Oral fluids 480 / 480 480 / 480
IV fluids (Total) 900 / 900
IV piggybacks 100 / 100
Amount instilled into Drain (
Total)
Right Lower Abdomen
Output:
Liquid stool amount 1405 / 1405
Rectum 1405 / 1405
Drain Output (Total) 60 60
Right Lower Abdomen 60 60
Other:
Number of approximated MODERATE 4 1
amounts of urine
Number of approximated LARGE 1
amounts of urine
Number of unmeasured liquid
stools
Rectum 3
Vital Signs
Temp Pulse Resp BP Pulse Ox
98.2 F 73 27 124/69 94
09/25/23 11:44 09/25/23 12:00 09/25/23 12:00 09/25/23 12:00 09/25/23 12:00
Lab Results
09/25/23 04:12
09/25/23 04:12
Calcium 9.0 mg/dl (8.4-10.2) 09/25/23 04:12
Total Bilirubin 0.4 mg/dl (0.2-1.3) 09/23/23 05:21
Direct Bilirubin 0.3 mg/dl (0.0-0.4) 09/23/23 05:21
AST 21 U/L (14-36) 09/23/23 05:21
ALT 17 U/L (0-35) 09/23/23 05:21
Alkaline Phosphatase 104 U/L (38-126) 09/23/23 05:21
Total Protein 6.3 g/dl (6.3-8.2) 09/23/23 05:21
Albumin 3.3 g/dl (3.5-5.0) L 09/23/23 05:21
Physical Exam
-
Ill appearing
ABD soft, tender to mid to right abdomen, obese, SARA in place with minimally cloudy serous drainage
--- NOTE | 2023-09-25 17:45 | PTCARENOTE ---
Pt downgraded to Med/surg. Pt informed; Heart monitor removed. Report given to Lottie MADDOX on - Pt transported to [id number]
--- NOTE | 2023-09-25 18:39 | PTCARENOTE ---
Received patient from [facility]. Pt oriented to room. Offered no complaints. Made pt comfortable. Cont to assess patient status.
[2023-09-25] MEDS: MYLICON 160 MG PO (20:35)
[2023-09-25] MEDS: XANAX 0.25 MG PO (22:11)
[2023-09-26] MEDS: SYNTHROID 150 MCG PO (05:25)
[2023-09-26] MEDS: ZOSYN 50 IV ×4 (05:25→22:59)
[2023-09-26 07:40] LABS: % Basophils 0.2 % (0-2); % Eosinophils 0.3 % (0-6); % Immature Granulocytes 1.2 % (0-0.5); % Lymphocytes 5.3 % (20.5-51.1); % Monocytes 6.9 % (1.7-9.3); % Neutrophils 86.1 % (42.2-75.2); Absolute Basophils 0.1 10^3/uL (0-0.2); Absolute Eosinophils 0.1 10^3/uL (0-0.7); Absolute Immature Granulocytes 0.3 10^3/uL (0-0.05); Absolute Lymphocytes 1.1 10^3/uL (1.2-3.4); Absolute Monocytes 1.4 10^3/uL (0.1-0.6); Hematocrit 39.8 % (37.0-47.0); Hemoglobin 12.8 g/dL (12.0-16.0); Mean Corp Hgb Conc. 32.2 g/dL (33.0-37.0); Mean Corpuscular Hgb 28.6 pg (27.0-31.0); Mean Corpuscular Volume 88.8 fL (81.0-99.0); Mean Platelet Volume 10.4 fL (7.4-10.4); Nucleated Red Blood Cells % 0 %; Platelet Count 502 10^3/uL (130-400); Red Blood Cell Count 4.48 10^6/uL (4.20-5.40); White Blood Cell Count 20.9 10^3/uL (4.8-10.8)
[2023-09-26 08:14] LABS: Blood Urea Nitrogen 24 mg/dl (7-17); Calcium 8.9 mg/dl (8.4-10.2); Carbon Dioxide 23 mmol/L (22-30); Chloride 94 mmol/L (98-107); Estimated Creatinine Clearance 66 ml/min; Glucose 87 mg/dl (70-99); Potassium 3.1 mmol/L (3.5-5.1); Sodium 133 mmol/L (135-145); eGFR 57.52
[2023-09-26 09:00] VITALS: BP 109/73
[2023-09-26] MEDS: LIPITOR 10 MG PO (09:08)
[2023-09-26] MEDS: VISBIOME 1 CAP PO (09:08)
[2023-09-26] MEDS: PAXIL 40 MG PO (09:08)
[2023-09-26] MEDS: TENORMIN PO (09:09)
[2023-09-26] MEDS: NORVASC PO (09:09)
[2023-09-26] MEDS: HEPARIN 5000 UNITS SC ×2 (09:10→20:44)
--- NOTE | 2023-09-26 10:08 | W.PN.GS2 ---
Addendum entered and electronically signed by Charles Quezada MD 09/26/23 11:53:
This is a 62-year-old female who initially presented to our hospital on 09/21/2023 for abdominal pain and was sent home but then represented on 09/23/2023 with worsening pain, leukocytosis and found to have perforated appendicitis. She is PPD #3 from
a IR drain placement with good clinical improvement. Her abdomen is still slightly distended, expected ileus in setting of a intra-abdominal abscess and sepsis on admission.
Will continue nonoperative management of perforated appendicitis.
Clears, will advance diet as tolerated once she is having more robust bowel function.
Up and out of bed, ambulate.
Continue IV antibiotics, will plan for 2-week course.
Patient will eventually need an outpatient colonoscopy as well as an interval appendectomy in 6 to 8 weeks. She will follow-up with Dr. Saunders as an outpatient.
General surgery will continue to follow.
Original Note:
Today's Communication / Plan
-
Out of bed, early ambulation.
Monitor white counts.
Advance diet as tolerated.
Continue IV antibiotics.
Assessment / Plan
-
Ms. Ruiz is a 62 yo female with a h/o open cholecystectomy, DM and hypothyroid who presented with mid abdominal abdominal pain on 09/21/23. Initial CT read as relatively benign. UTI noted and antibiotics were initiated on presentation. She was not
improving clinically. WBC noted to be rising with no improvement/worsening in pain and thus repeat imaging was preformed with findings consistent with perforated appendicitis with abscess.
PPD #3 IR drain placement
Markedly improved.
Expected ileus.
WBC count trending down, mild tachypnea otherwise stable vital signs.
Diarrhea improving
Stool studies negative.
Urine cx +ecoli, Drain cx +ecoli. Blood cx NGTD
No plans for emergent surgery. Will eventually need OP colonoscopy and interval appendectomy in approx 6-8 weeks once surrounding inflammation/abscess resolved.
-- Continue low residue diet and advance as tolerated.
-- Continue IV antibiotics
--Continue IR drain, await sensitivities
--Out of bed, and walking around.
--Medical management as per primary team
Subjective Data
-
Date of Service: September 26, 2023
Objective Data
-
Intake and Output
09/25/23 09/26/23 09/27/23
06:59 06:59 06:59
Intake Total 1480 / 1480 1060 / 1060
Output Total 60 / 60 30 / 30
Balance 1420 / 1420 1030 / 1030
Intake:
Oral fluids 480 / 480 960 / 960
IV fluids (Total) 900 / 900
IV piggybacks 100 / 100 100 / 100
Output:
Drain Output (Total) 60 / 60 30 / 30
Right Lower Abdomen 60 / 60 30 / 30
Other:
Number of approximated MODERATE 1
amounts of urine
Number of approximated LARGE 1 3
amounts of urine
Vital Signs
Temp Pulse Resp BP Pulse Ox
97.7 F 81 20 109/73 96
09/26/23 09:00 09/26/23 09:09 09/26/23 09:00 09/26/23 09:09 09/26/23 09:00
Lab Results
09/26/23 06:11
09/26/23 06:11
Calcium 8.9 mg/dl (8.4-10.2) 09/26/23 06:11
Total Bilirubin 0.4 mg/dl (0.2-1.3) 09/23/23 05:21
Direct Bilirubin 0.3 mg/dl (0.0-0.4) 09/23/23 05:21
AST 21 U/L (14-36) 09/23/23 05:21
ALT 17 U/L (0-35) 09/23/23 05:21
Alkaline Phosphatase 104 U/L (38-126) 09/23/23 05:21
Total Protein 6.3 g/dl (6.3-8.2) 09/23/23 05:21
Albumin 3.3 g/dl (3.5-5.0) L 09/23/23 05:21
Physical Exam
-
General: Awake, alert and oriented x3, not in distress and holds appropriate conversation.
Respiratory: normal respiratory effort, in no respiratory distress.
Gastrointestinal: soft, nontender, no guarding or rigidity, minimal serous drain output.
--- NOTE | 2023-09-26 11:23 | W.PN.HOSP.TC ---
Today's Communication/Plan
-
Monitor vital signs
see plan
Continue antibiotics
Follow urine culture
Incentive Spirometer
Wean oxygen as tolerated
Assessment / Plan
Assessment / Plan
Assessment:
Contained perforated appendicitis with abscess
- CT: Abnormal fluid collection in the right paracolic cutter measuring 6.8 x 3.6 x 4.8 cm immediately lateral to the appendix and adjacent to the cecum. Although the appendix is within the limits of normal in caliber there are some accompanying
inflammatory changes. Findings are suspicious for confined/contained perforated appendicitis or inflammatory/infectious process of the adjacent cecum such as perforated diverticulitis. No free air.
- s/p IRAD guided drainage 09/22
- continue IV Zosyn; follow sensitivities from drain culture
- pain control, anti-emetics
- diet: LRD
- GS following
E. Coli UTI
- continue IV Zosyn
Acute hypoxic respiratory insufficiency likely secondary to atelectasis
continue with IS
Suspect renal insufficiency
- reviewed previous 1 years worth of labs on her portal, baseline Cr 1.1
- hold nephrotoxic agents (chlorthalidone, benazepril)
Muscle soreness of sternocleidomastoid secondary to lifting
- Muscle is sore and tender to palpation
- Doubt rotator cuff injury
- prn Tylenol
- s/p 1 dose Toradol in ER; hold further NSAIDs
- continue heat pad
Essential hypertension
- continue amlodipine
- continue atenolol
- parameters placed
Hypercholesterolemia
- continue statin
Type 2 diabetes
- diet controlled
- holding Mounjaro
Hypothyroidism
- continue levothyroxine
Anxiety/depression
- continue Xanax
- continue paroxetine
Hypokalemia
- replete as needed
Obesity
DVT ppx: SC heparin
Code: Full
General: No Apparent Distress
HEENT: Normocephalic and Atraumatic
Respiratory: Negative Wheezes
Cardiac: Regular Rhythm and S1/S2
GI: Soft and Nontender
Neuro: AO x 3
Hematologic / Lymphatic: No Lymphadenopathy
Psych: Calm
Anticipated Discharge: 24 - 48 hours
Subjective/Interval History
-
Date of Service: September 26, 2023
denies chest pain
Objective Data
-
Labs:
Laboratory Results
09/26/23
06:11
WBC 20.9 H
Hgb 12.8
Hct 39.8
Plt Count 502 H
Sodium 133 L
Potassium 3.1 L
Chloride 94 L
Carbon Dioxide 23
BUN 24 H
Creatinine 1.1 H
Glucose 87
Calcium 8.9
Vital Signs:
Vital Signs
Temp Pulse Resp BP Pulse Ox
97.7 F 81 20 109/73 93
09/26/23 09:00 09/26/23 09:09 09/26/23 09:00 09/26/23 09:09 09/26/23 09:00
I&O
09/25/23 09/26/23 09/27/23
06:59 06:59 06:59
Intake Total 1480 / 1480 1060 / 1060
Output Total 60 / 60 30 / 30
Balance 1420 / 1420 1030 / 1030
[2023-09-26] MEDS: KCL 40 MEQ PO (11:34)
[2023-09-26 15:30] VITALS: BP 108/64
[2023-09-26] MEDS: XANAX 0.25 MG PO (20:56)
[2023-09-26 23:40] VITALS: BP 108/61
[2023-09-27] MEDS: ZOSYN 50 IV ×2 (05:23→11:19)
[2023-09-27] MEDS: SYNTHROID 150 MCG PO (05:23)
[2023-09-27 07:00] VITALS: BP 119/68
[2023-09-27 08:19] LABS: % Basophils 0.3 % (0-2); % Eosinophils 0.2 % (0-6); % Immature Granulocytes 3.3 % (0-0.5); % Lymphocytes 6.6 % (20.5-51.1); % Monocytes 6.8 % (1.7-9.3); % Neutrophils 82.8 % (42.2-75.2); Absolute Basophils 0.1 10^3/uL (0-0.2); Absolute Eosinophils 0.1 10^3/uL (0-0.7); Absolute Immature Granulocytes 0.8 10^3/uL (0-0.05); Absolute Lymphocytes 1.6 10^3/uL (1.2-3.4); Absolute Monocytes 1.6 10^3/uL (0.1-0.6); Absolute Neutrophils 19.9 10^3/uL (1.4-6.5); Hematocrit 39.7 % (37.0-47.0); Hemoglobin 12.6 g/dL (12.0-16.0); Mean Corp Hgb Conc. 31.7 g/dL (33.0-37.0); Mean Corpuscular Hgb 28.1 pg (27.0-31.0); Mean Corpuscular Volume 88.6 fL (81.0-99.0); Mean Platelet Volume 10.2 fL (7.4-10.4); Nucleated Red Blood Cells % 0 %; Platelet Count 509 10^3/uL (130-400); Red Blood Cell Count 4.48 10^6/uL (4.20-5.40); Red Cell Dist. Width 13.7 % (11.5-14.5)
[2023-09-27] MEDS: HEPARIN 5000 UNITS SC ×2 (08:30→20:49)
[2023-09-27] MEDS: TENORMIN 100 MG PO (08:31)
[2023-09-27] MEDS: VISBIOME 1 CAP PO (08:31)
[2023-09-27] MEDS: PAXIL 40 MG PO (08:31)
[2023-09-27] MEDS: NORVASC 10 MG PO (08:31)
[2023-09-27] MEDS: LIPITOR 10 MG PO (08:32)
[2023-09-27 08:51] LABS: Blood Urea Nitrogen 21 mg/dl (7-17); Calcium 8.8 mg/dl (8.4-10.2); Carbon Dioxide 25 mmol/L (22-30); Chloride 94 mmol/L (98-107); Estimated Creatinine Clearance 72 ml/min; Glucose 84 mg/dl (70-99); Potassium 3.5 mmol/L (3.5-5.1); Sodium 133 mmol/L (135-145); eGFR > 60.00
--- NOTE | 2023-09-27 11:07 | W.PN.HOSP.TC ---
Today's Communication/Plan
-
Monitor vital signs and see plan
Leukocytosis worse today, denies any fever, abdominal pain
ID to evaluate with IV antibiotics
Monitor drain output
surgery following
Assessment / Plan
Assessment / Plan
Assessment:
Contained perforated appendicitis with abscess
- CT: Abnormal fluid collection in the right paracolic cutter measuring 6.8 x 3.6 x 4.8 cm immediately lateral to the appendix and adjacent to the cecum. Although the appendix is within the limits of normal in caliber there are some accompanying
inflammatory changes. Findings are suspicious for confined/contained perforated appendicitis or inflammatory/infectious process of the adjacent cecum such as perforated diverticulitis. No free air.
- s/p IRAD guided drainage 09/22
- continue IV Zosyn; now with ecoli and viridans strep. ecoli is pansensitive. Asked infectious disease opinion regarding beta strep and possibly will need different antibiotics. ID evaluation
- pain control, anti-emetics
- diet: LRD
- GS following
WBC worse today; 24. no fever or increased abdominal pain
E. Coli UTI
- continue IV Zosyn which is on for appendeceal abscess. from UTI standpoint she finished treatment
Acute hypoxic respiratory insufficiency likely secondary to atelectasis
continue with IS
Mild hyponatremia
monitor
Suspect renal insufficiency
- reviewed previous 1 years worth of labs on her portal, baseline Cr 1.1
- hold nephrotoxic agents (chlorthalidone, benazepril)
Muscle soreness of sternocleidomastoid secondary to lifting
- Muscle is sore and tender to palpation
- Doubt rotator cuff injury
- prn Tylenol
- s/p 1 dose Toradol in ER; hold further NSAIDs
- continue heat pad
Essential hypertension
- continue amlodipine
- continue atenolol
- parameters placed
Hypercholesterolemia
- continue statin
Type 2 diabetes
- diet controlled
- holding Mounjaro
Hypothyroidism
- continue levothyroxine
Anxiety/depression
- continue Xanax
- continue paroxetine
Hypokalemia
- replete as needed
Obesity
DVT ppx: SC heparin
Code: Full
General: No Apparent Distress
HEENT: Normocephalic and Atraumatic
Respiratory: Negative Wheezes
Cardiac: Regular Rhythm and S1/S2
GI: Soft and Nontender,IR drain
Neuro: AO x 3
Hematologic / Lymphatic: No Lymphadenopathy
Psych: Calm
I spent a total of 52 minutes with the patient or on the floor. More than 50% of this time involved counseling and coordination of care.
Anticipated Discharge: 24 - 48 hours
Subjective/Interval History
-
Date of Service: September 27, 2023
denies nausea
Objective Data
-
Labs:
Laboratory Results
09/27/23
07:06
WBC 24.0 H
Hgb 12.6
Hct 39.7
Plt Count 509 H
Sodium 133 L
Potassium 3.5
Chloride 94 L
Carbon Dioxide 25
BUN 21 H
Creatinine 1.0
Glucose 84
Calcium 8.8
Vital Signs:
Vital Signs
Temp Pulse Resp BP Pulse Ox
97.9 F 75 18 119/68 95
09/27/23 07:00 09/27/23 08:31 09/27/23 07:00 09/27/23 08:31 09/27/23 07:40
I&O
09/26/23 09/27/23 09/28/23
06:59 06:59 06:59
Intake Total 1060 / 1060 1760 / 1760
Output Total 30 / 30 30 / 30
Balance 1030 / 1030 1730 / 1730
--- NOTE | 2023-09-27 11:35 | W.PN.GS2 ---
Today's Communication / Plan
-
-- Continue low residue diet
-- Continue IV antibiotics
-- Trend labs
Assessment / Plan
-
Ms. Ruiz is a 62 yo female with a h/o open cholecystectomy, DM and hypothyroid who presented with mid abdominal abdominal pain on 09/21/23. Initial CT read as relatively benign. UTI noted and antibiotics were initiated on presentation. She was not
improving clinically. WBC noted to be rising with no improvement/worsening in pain and thus repeat imaging was preformed with findings consistent with perforated appendicitis with abscess.
PPD #4 IR drain placement
Clinically improved. AVSS
WBC count bump trend, may need repeat CT tomorrow if continues to rise
Stool studies negative.
Urine cx +ecoli, Drain cx +ecoli and strep viridans. Blood cx NGTD
No plans for emergent surgery. Will eventually need OP colonoscopy and interval appendectomy in approx 6-8 weeks once surrounding inflammation/abscess resolved.
-- Continue low residue diet
-- Continue IV antibiotics
-- Continue IR drain, await sensitivities
-- Out of bed, and walking around.
-- Trend labs
-- Medical management as per primary team
Subjective Data
-
Date of Service: September 27, 2023
Feels improved - less pain. Tolerating LRD - no nausea or vomiting, passing flatus and stool. Ambulating.
Objective Data
-
Intake and Output
09/26/23 09/27/23 09/28/23
06:59 06:59 06:59
Intake Total 1060 / 1060 1760 / 1760
Output Total 30 / 30 30 / 30
Balance 1030 / 1030 1730 / 1730
Intake:
Oral fluids 960 / 960 1560 / 1560
IV piggybacks 100 / 100 200 / 200
Output:
Drain Output (Total) 30 / 30 30 / 30
Right Lower Abdomen 30 / 30 30 / 30
Other:
Number of approximated MODERATE 3
amounts of urine
Number of approximated LARGE 3
amounts of urine
Vital Signs
Temp Pulse Resp BP Pulse Ox
97.9 F 75 18 119/68 95
09/27/23 07:00 09/27/23 08:31 09/27/23 07:00 09/27/23 08:31 09/27/23 07:40
Lab Results
09/27/23 07:06
09/27/23 07:06
Calcium 8.8 mg/dl (8.4-10.2) 09/27/23 07:06
Total Bilirubin 0.4 mg/dl (0.2-1.3) 09/23/23 05:21
Direct Bilirubin 0.3 mg/dl (0.0-0.4) 09/23/23 05:21
AST 21 U/L (14-36) 09/23/23 05:21
ALT 17 U/L (0-35) 09/23/23 05:21
Alkaline Phosphatase 104 U/L (38-126) 09/23/23 05:21
Total Protein 6.3 g/dl (6.3-8.2) 09/23/23 05:21
Albumin 3.3 g/dl (3.5-5.0) L 09/23/23 05:21
Physical Exam
-
Gen: NAD
Abd: obese, soft, tender in RIGHT mid abdomen/flank, non-peritoneal, IR drain serous
[2023-09-27 12:56] VITALS: BMI 41.6
[2023-09-27 15:00] VITALS: BP 99/64
[2023-09-27 16:11] VITALS: BP 99/64
--- NOTE | 2023-09-27 16:12 | CON.ID ---
Consultation
-
Date/Time Consultation Requested: 09/27/2023 1110
Date/Time Consultation Performed: 09/27/2023 1600
Requesting Provider: Dr. Smith
Performing Provider: Dr. Marquez
Reason for Consultation: Appendiceal abscess
Chief Complaint / Past History
History of Present Illness
Ernesto Ruiz is a 62-year-old female being evaluated at the request of Dr. Smith in regards to an appendiceal abscess and leukocytosis. History is obtained from chart review, along with patient interview. The patient presented to [facility]
09/21/2023 with complaints of abdominal pain starting earlier that day. She also had complained of feeling pain in her collarbone following doing a lot of lifting and moving. She admitted to nausea, along with vomiting and diarrhea. She denies any
fevers or chills.
Workup in the emergency room revealed marked leukocytosis, and CT scanning showed a small volume of free fluid in the abdomen. She was felt to have gastroenteritis. The patient was subsequently taken to IR for aspiration of an appendiceal abscess,
with recovery of approximately 10 mL of fluid. The drain was left in place. Cultures have shown the presence of E. coli and viridans strep, but today the leukocytosis was noted to be worse, and Infectious Diseases is asked to comment upon further
antimicrobial therapy.
The patient currently reports that her abdominal discomfort is improved. She denies any fevers or chills. She notes that any abdominal discomfort is mainly centered on the area where the drain is in place. She notes no significant diarrhea. She
denies any dysuria.
Past History
Additional Past Medical History:
HTN
Dyslipidemia
DM
Renal insufficiency
Hypothyroidism
Anxiety
Additional Past Surgical History:
Cholecystectomy
Lumpectomy (benign)
Allergy History:
No Known Allergies Allergy (Verified 09/26/23 11:17)
Medications Reviewed: Yes
Current Antibiotics:
Zosyn 3.375 g IV every 6 hours
Social History
Tobacco: Smoker
Alcohol: Occasional
Drug: None
Personal:
Living: With Family
Family History
Family History: Not Pertinent
Review of Systems
Vital Signs
Temp Pulse Resp BP Pulse Ox
97.9 F 75 18 119/68 94
09/27/23 07:00 09/27/23 08:31 09/27/23 07:00 09/27/23 08:31 09/27/23 12:16
Physical Exam
Physical Exam
Constitutional: No Acute Distress, Comfortable and Non-toxic
Eyes: No Conjunctival Hemorrhage and Sclera Anicteric
Oral: No Thrush and No Ulcers
Cardiovascular: S1/S2; Negative S3/S4
Pulmonary: Clear; Negative Wheezes, Rales or Rhonchi
Gastrointestinal: Soft, Non Tender, Non Distended, Normal Bowel Sounds, No Rebound, No Guarding and Other (SARA in place with serous drainage)
Genito-Urinary: Negative Worthy
Extremities: Edema; Negative Cyanosis or Erythema
Neurological: Awake and Alert
Psychological: Calm
Lab / Diagnostic Study Results
09/27/23 07:06
09/27/23 07:06
Abs Immat Gran (auto) 0.8 10^3/uL (0-0.05) H 09/27/23 07:06
Absolute Neuts (auto) 19.9 10^3/uL (1.4-6.5) H 09/27/23 07:06
Absolute Lymphs (auto) 1.6 10^3/uL (1.2-3.4) 09/27/23 07:06
Absolute Monos (auto) 1.6 10^3/uL (0.1-0.6) H 09/27/23 07:06
Absolute Basos (auto) 0.1 10^3/uL (0-0.2) 09/27/23 07:06
Immature Gran % 3.3 % (0-0.5) H 09/27/23 07:06
Neutrophils % 82.8 % (42.2-75.2) H 09/27/23 07:06
Lymphocytes % 6.6 % (20.5-51.1) L 09/27/23 07:06
Monocytes % 6.8 % (1.7-9.3) 09/27/23 07:06
Eosinophils % 0.2 % (0-6) 09/27/23 07:06
Basophils % 0.3 % (0-2) 09/27/23 07:06
Lactic Acid Cancelled 09/21/23 21:27
Ur Squamous Epith Cells 16-20 /LPF (Few) 09/21/23 21:38
Microbiology Results
Micro:
09/23/23 20:16 Wound Culture - Final
Abdomen Escherichia coli
Viridans Streptococcus Group
Gram Stain - Final
09/21/23 23:25 Blood Culture - Final
Blood/Venous No Growth - Final Report
09/21/23 23:11 Blood Culture - Final
Blood/Venous No Growth - Final Report
09/23/23 09:07 Salmonella/Shigella Culture - Final
Feces/Stool No Salmonella, Shigella, Aeromonas or Plesiomonas species
isolated.
Campylobacter Culture - Final
No Campylobacter species isolated.
Shiga Toxin Test - Final
No E. coli Shiga Toxin 1 or 2 detected.
Stool Leukocytes - Final
09/21/23 21:38 Urine Culture - Final
Urine Escherichia coli
09/23/23 09:07 - Final
Feces/Stool Negative for Norovirus GI and GII.
09/23/23 04:12 C. difficile GDH Antigen & Toxins - Final
Feces/Stool Negative for toxigenic C.difficile
Imaging:
09/23/2023 CT abdomen/pelvis with IV and oral contrast: Abnormal fluid collection in the right paracolic cutter measuring 6.8 x 3.6 x 4.8 cm immediately lateral to the appendix and adjacent to the cecum. Although the appendix is within the limits of
normal in caliber there are some accompanying inflammatory changes. Findings are suspicious for confined/contained perforated appendicitis or inflammatory/infectious process of the adjacent cecum such as perforated diverticulitis. No free air.
Likely accompanying small bowel ileus. Prior cholecystectomy.
Assessment / Plan
Appendiceal abscess
Leukocytosis
Thrombocytosis
RYLEY; improved
HTN
Dyslipidemia
DM
Renal insufficiency
Hypothyroidism
Anxiety
Recommendations:
Sensitivity data of recovered isolate is reviewed.
Narrow antibiotics to Unasyn 3 g IV every 6 hours.
Monitor white count and temperature curve. If leukocytosis persist, may require additional imaging.
Will continue to follow along with you.
[2023-09-27] MEDS: UNASYN IV (18:25)
[2023-09-27] MEDS: XANAX 0.25 MG PO (20:56)
[2023-09-27 23:55] VITALS: BP 112/57
[2023-09-28] MEDS: UNASYN IV ×4 (01:13→17:51)
[2023-09-28] MEDS: SYNTHROID 150 MCG PO (05:14)
[2023-09-28 06:04] LABS: % Basophils 0.6 % (0-2); % Eosinophils 0.4 % (0-6); % Immature Granulocytes 5.3 % (0-0.5); % Lymphocytes 9.2 % (20.5-51.1); % Monocytes 5.9 % (1.7-9.3); % Neutrophils 78.6 % (42.2-75.2); Absolute Basophils 0.1 10^3/uL (0-0.2); Absolute Eosinophils 0.1 10^3/uL (0-0.7); Absolute Immature Granulocytes 1.3 10^3/uL (0-0.05); Absolute Lymphocytes 2.2 10^3/uL (1.2-3.4); Absolute Monocytes 1.4 10^3/uL (0.1-0.6); Absolute Neutrophils 18.8 10^3/uL (1.4-6.5); Hematocrit 37.7 % (37.0-47.0); Hemoglobin 12.8 g/dL (12.0-16.0); Mean Corpuscular Hgb 28.6 pg (27.0-31.0); Mean Corpuscular Volume 84.3 fL (81.0-99.0); Mean Platelet Volume 9.4 fL (7.4-10.4); Nucleated Red Blood Cells % 0 %; Platelet Count 522 10^3/uL (130-400); Red Blood Cell Count 4.47 10^6/uL (4.20-5.40); Red Cell Dist. Width 13.6 % (11.5-14.5)
[2023-09-28 06:24] LABS: Blood Urea Nitrogen 19 mg/dl (7-17); Calcium 8.7 mg/dl (8.4-10.2); Carbon Dioxide 21 mmol/L (22-30); Chloride 98 mmol/L (98-107); Estimated Creatinine Clearance 91 ml/min; Glucose 82 mg/dl (70-99); Potassium 3.2 mmol/L (3.5-5.1); Sodium 132 mmol/L (135-145); eGFR > 60.00
[2023-09-28 07:00] VITALS: BP 108/62
[2023-09-28 08:38] VITALS: BP 108/62
[2023-09-28] MEDS: PAXIL 40 MG PO (08:49)
[2023-09-28] MEDS: KCL 40 MEQ PO (08:49)
[2023-09-28] MEDS: VISBIOME 1 CAP PO (08:50)
[2023-09-28] MEDS: NORVASC 10 MG PO (08:50)
[2023-09-28] MEDS: HEPARIN 5000 UNITS SC ×2 (08:51→21:03)
[2023-09-28] MEDS: TENORMIN 100 MG PO (08:51)
[2023-09-28] MEDS: LIPITOR 10 MG PO (08:51)
--- NOTE | 2023-09-28 10:49 | W.PN.HOSP.TC ---
Today's Communication/Plan
-
monitor vitals
see plan
cw abx
monitor drain
Monitor leukocytosis; might need additional imaging
Assessment / Plan
Assessment / Plan
Assessment:
Contained perforated appendicitis with abscess
- CT: Abnormal fluid collection in the right paracolic cutter measuring 6.8 x 3.6 x 4.8 cm immediately lateral to the appendix and adjacent to the cecum. Although the appendix is within the limits of normal in caliber there are some accompanying
inflammatory changes. Findings are suspicious for confined/contained perforated appendicitis or inflammatory/infectious process of the adjacent cecum such as perforated diverticulitis. No free air.
- s/p IRAD guided drainage 09/22; continues to have drainage
- now with ecoli and viridans strep. ecoli is pansensitive. Asked infectious disease opinion regarding beta strep and possibly will need different antibiotics. ID following. Narrowed antibiotic to Unasyn
- pain control, anti-emetics
- diet: LRD
- GS following
WBC continues to be high; denies any worsening abdominal pain. consider additional imaging if leukocytosis do not improve. Defer to surgery; . no fever
E. Coli UTI
- continue IV Zosyn which is on for appendeceal abscess. from UTI standpoint she finished treatment
Acute hypoxic respiratory insufficiency likely secondary to atelectasis
continue with IS
Mild hyponatremia
monitor
Suspect renal insufficiency
- reviewed previous 1 years worth of labs on her portal, baseline Cr 1.1
- hold nephrotoxic agents (chlorthalidone, benazepril)
Muscle soreness of sternocleidomastoid secondary to lifting
- Muscle is sore and tender to palpation
- Doubt rotator cuff injury
- prn Tylenol
- s/p 1 dose Toradol in ER; hold further NSAIDs
- continue heat pad
Essential hypertension
- continue amlodipine
- continue atenolol
- parameters placed
Hypercholesterolemia
- continue statin
Type 2 diabetes
- diet controlled
- holding Mounjaro
Hypothyroidism
- continue levothyroxine
Anxiety/depression
- continue Xanax
- continue paroxetine
Hypokalemia
- replete as needed
Obesity
DVT ppx: SC heparin
Code: Full
General: No Apparent Distress
HEENT: Normocephalic and Atraumatic
Respiratory: Negative Wheezes
Cardiac: Regular Rhythm and S1/S2
GI: Soft and Nontender,IR drain
Neuro: AO x 3
Hematologic / Lymphatic: No Lymphadenopathy
Psych: Calm
I spent a total of 51 minutes with the patient or on the floor. More than 50% of this time involved counseling and coordination of care.
Anticipated Discharge: > 48 hours
Subjective/Interval History
-
Date of Service: September 28, 2023
denies nausea
Objective Data
-
Labs:
Laboratory Results
09/28/23
05:29
WBC 24.0 H
Hgb 12.8
Hct 37.7
Plt Count 522 H
Sodium 132 L
Potassium 3.2 L
Chloride 98
Carbon Dioxide 21 L
BUN 19 H
Creatinine 0.8
Glucose 82
Calcium 8.7
Vital Signs:
Vital Signs
Temp Pulse Resp BP Pulse Ox
97.9 F 65 16 108/62 93
09/28/23 07:00 09/28/23 08:51 09/28/23 07:00 09/28/23 08:51 09/28/23 07:00
I&O
09/27/23 09/28/23 09/29/23
06:59 06:59 06:59
Intake Total 1760 / 1760 780 / 780 960 / 960
Output Total 20 / 20 20 / 20
Balance 1730 / 1730 760 / 760 940 / 940
[2023-09-28] MEDS: OMNIPAQUE 50 ML PO (11:27)
--- NOTE | 2023-09-28 11:31 | CM ---
IV ABX changed to: Unasyn 3 g IV every 6 hours. Hoping for improvement and able to return home with no needs.
[2023-09-28 15:03] VITALS: BP 108/68
--- NOTE | 2023-09-28 17:05 | W.PN.GS2 ---
Addendum entered and electronically signed by Rony Saunders MD 09/28/23 17:11:
D/w IR. Will attempt upsize drain and increase flushes.
Original Note:
Today's Communication / Plan
-
Cont abx
Trend WBC
Check with IR re: drain position
Assessment / Plan
-
Ms. Ruiz is a 62 yo female with a h/o open cholecystectomy, DM and hypothyroid who presented with mid abdominal abdominal pain on 09/21/23. Initial CT read as relatively benign. UTI noted and antibiotics were initiated on presentation. She was not
improving clinically. WBC noted to be rising with no improvement/worsening in pain and thus repeat imaging was preformed with findings consistent with perforated appendicitis with abscess.
PPD #5 IR drain placement
Clinically improved. AVSS
WBC stable, elevated
Stool studies negative.
Urine cx +ecoli, Drain cx +ecoli and strep viridans. Blood cx NGTD
Some concern for lack of improvement in WBC, though every other parameter is improved.
Rpt CT today with partially undrained RUQ collection and some new collections that are small and not amenable to drainage
-- Continue low residue diet
-- Continue IV antibiotics per ID
-- Continue IR drain, await sensitivities, d/w IR whether reposition RUQ drain may have benefit
-- Out of bed, and walking around.
-- Trend labs
-- Medical management as per primary team
Subjective Data
-
Date of Service: September 28, 2023
AFVSS, pain improving, 'I feel great,' no complaints, harriett diet
Objective Data
-
Intake and Output
09/27/23 09/28/23 09/29/23
06:59 06:59 06:59
Intake Total 1760 / 1760 780 / 780 960 / 960
Output Total
Balance 1730 / 1730 760 / 760 940 / 940
Intake:
Oral fluids 1560 / 1560 720 / 720
IV fluids (Total) 720 / 720
IV piggybacks 200 / 200 50 / 50 240 / 240
Amount instilled into Drain (
Total)
Right Lower Abdomen
Output:
Drain Output (Total)
Right Lower Abdomen
Other:
Number of approximated MODERATE 3 4 3
amounts of urine
Vital Signs
Temp Pulse Resp BP Pulse Ox
98.2 F 70 18 108/68 94
09/28/23 15:03 09/28/23 15:03 09/28/23 15:03 09/28/23 15:03 09/28/23 15:03
Lab Results
09/28/23 05:29
09/28/23 05:29
Calcium 8.7 mg/dl (8.4-10.2) 09/28/23 05:29
Total Bilirubin 0.4 mg/dl (0.2-1.3) 09/23/23 05:21
Direct Bilirubin 0.3 mg/dl (0.0-0.4) 09/23/23 05:21
AST 21 U/L (14-36) 09/23/23 05:21
ALT 17 U/L (0-35) 09/23/23 05:21
Alkaline Phosphatase 104 U/L (38-126) 09/23/23 05:21
Total Protein 6.3 g/dl (6.3-8.2) 09/23/23 05:21
Albumin 3.3 g/dl (3.5-5.0) L 09/23/23 05:21
Physical Exam
-
Gen: NAD
Abd: soft, obese, ttp to RUQ remains, drain clear serous
--- NOTE | 2023-09-28 17:22 | W.PN.ID1 ---
Date of Service
Date of Service: September 28, 2023
Today's Communication
Continue antibiotics
Assessment / Plan
Appendiceal abscess
Leukocytosis
Thrombocytosis
RYLEY; improved
HTN
Dyslipidemia
DM
Renal insufficiency
Hypothyroidism
Anxiety
Recommendations:
Sensitivity data of recovered isolate is reviewed.
Continue Unasyn 3 g IV every 6 hours.
Monitor white count and temperature curve.
Will continue to follow along with you.
Chief Complaint
-: Other (Abdominal abscess.)
Subjective / Review of Systems
Review of Systems: No Fever and No Chills
Vital Signs / Physical Exam
Vital Signs
Vital Signs
Temp Pulse Resp BP Pulse Ox
98.2 F 70 18 108/68 94
09/28/23 15:03 09/28/23 15:03 09/28/23 15:03 09/28/23 15:03 09/28/23 15:03
Physical Exam
Constitutional: No Acute Distress, Comfortable and Non-toxic
Eyes: Sclera Anicteric
Cardiovascular: S1/S2; Negative S3/S4
Pulmonary: Non Labored
Gastrointestinal: Soft, Non Tender, Non Distended and Other (SARA drain in place with serous fluid)
Extremities: Edema; Negative Cyanosis or Erythema
Neurological: Awake and Alert
Psychological: Calm
Objective Data
Lab Data
Lab Results
09/28/23 05:29
09/28/23 05:29
Estimated Creat Clear 91 ml/min 09/28/23 05:29
Lactic Acid Cancelled 09/21/23 21:27
Total Bilirubin 0.4 mg/dl (0.2-1.3) 09/23/23 05:21
AST 21 U/L (14-36) 09/23/23 05:21
ALT 17 U/L (0-35) 09/23/23 05:21
Alkaline Phosphatase 104 U/L (38-126) 09/23/23 05:21
Most recent labs reviewed.
Micro Results:
09/23/23 20:16 Wound Culture - Final
Abdomen Escherichia coli
Viridans Streptococcus Group
Gram Stain - Final
09/21/23 23:25 Blood Culture - Final
Blood/Venous No Growth - Final Report
09/21/23 23:11 Blood Culture - Final
Blood/Venous No Growth - Final Report
09/23/23 09:07 Salmonella/Shigella Culture - Final
Feces/Stool No Salmonella, Shigella, Aeromonas or Plesiomonas species
isolated.
Campylobacter Culture - Final
No Campylobacter species isolated.
Shiga Toxin Test - Final
No E. coli Shiga Toxin 1 or 2 detected.
Stool Leukocytes - Final
09/21/23 21:38 Urine Culture - Final
Urine Escherichia coli
09/23/23 09:07 - Final
Feces/Stool Negative for Norovirus GI and GII.
09/23/23 04:12 C. difficile GDH Antigen & Toxins - Final
Feces/Stool Negative for toxigenic C.difficile
Imaging:
09/23/2023 CT abdomen/pelvis with IV and oral contrast: Abnormal fluid collection in the right paracolic cutter measuring 6.8 x 3.6 x 4.8 cm immediately lateral to the appendix and adjacent to the cecum. Although the appendix is within the limits of
normal in caliber there are some accompanying inflammatory changes. Findings are suspicious for confined/contained perforated appendicitis or inflammatory/infectious process of the adjacent cecum such as perforated diverticulitis. No free air.
Likely accompanying small bowel ileus. Prior cholecystectomy.
[2023-09-28] MEDS: XANAX 0.25 MG PO (21:15)
[2023-09-28 23:54] VITALS: BP 117/65
[2023-09-29] MEDS: UNASYN IV ×5 (00:04→23:02)
[2023-09-29] MEDS: SYNTHROID 150 MCG PO (05:24)
[2023-09-29 07:05] VITALS: BP 117/66
[2023-09-29 07:31] LABS: % Basophils 0.4 % (0-2); % Eosinophils 0.3 % (0-6); % Immature Granulocytes 6.9 % (0-0.5); % Lymphocytes 8.2 % (20.5-51.1); % Monocytes 5.3 % (1.7-9.3); % Neutrophils 78.9 % (42.2-75.2); Absolute Basophils 0.1 10^3/uL (0-0.2); Absolute Eosinophils 0.1 10^3/uL (0-0.7); Absolute Immature Granulocytes 1.5 10^3/uL (0-0.05); Absolute Lymphocytes 1.8 10^3/uL (1.2-3.4); Absolute Monocytes 1.2 10^3/uL (0.1-0.6); Absolute Neutrophils 17.2 10^3/uL (1.4-6.5); Hematocrit 40.6 % (37.0-47.0); Hemoglobin 12.8 g/dL (12.0-16.0); Mean Corp Hgb Conc. 31.5 g/dL (33.0-37.0); Mean Corpuscular Hgb 27.9 pg (27.0-31.0); Mean Corpuscular Volume 88.5 fL (81.0-99.0); Mean Platelet Volume 9.3 fL (7.4-10.4); Nucleated Red Blood Cells % 0 %; Platelet Count 613 10^3/uL (130-400); Red Blood Cell Count 4.59 10^6/uL (4.20-5.40); Red Cell Dist. Width 13.5 % (11.5-14.5); White Blood Cell Count 21.8 10^3/uL (4.8-10.8)
[2023-09-29 08:02] LABS: Blood Urea Nitrogen 14 mg/dl (7-17); Calcium 8.4 mg/dl (8.4-10.2); Carbon Dioxide 28 mmol/L (22-30); Chloride 94 mmol/L (98-107); Estimated Creatinine Clearance 91 ml/min; Glucose 95 mg/dl (70-99); Potassium 3.5 mmol/L (3.5-5.1); Sodium 133 mmol/L (135-145); eGFR > 60.00
[2023-09-29] MEDS: LIPITOR 10 MG PO (08:43)
[2023-09-29] MEDS: VISBIOME 1 CAP PO (08:43)
[2023-09-29] MEDS: TENORMIN 100 MG PO (08:43)
[2023-09-29] MEDS: PAXIL 40 MG PO (08:44)
[2023-09-29] MEDS: NORVASC 10 MG PO (08:45)
[2023-09-29] MEDS: HEPARIN 5000 UNITS SC ×2 (08:45→20:03)
--- NOTE | 2023-09-29 09:44 | W.PN.GS2 ---
Today's Communication / Plan
-
`
Assessment / Plan
-
Assessment: 62 yo female with a h/o open cholecystectomy, DM and hypothyroid who presented with mid abdominal abdominal pain on 09/21/23. Initial CT read as relatively benign. UTI noted and antibiotics were initiated on presentation. She was not
improving clinically. WBC noted to be rising with no improvement/worsening in pain and thus repeat imaging was preformed with findings consistent with perforated appendicitis with abscess prompting subsequent surgical consultation.
s/p IR drain placement
Urine cx +ecoli, Drain cx +ecoli and strep viridans. Blood cx NGTD
Rpt CT 09/27 with partially undrained RUQ collection and some new collections that are small and not amenable to drainage
Plan:
-- Continue low residue diet
-- Continue IV antibiotics per ID
-- Continue IR drain - in discussions with IR regarding potential benefit of manipulating or upsizing current drain
-- Out of bed, and walking around.
-- Trend labs
-- Medical management as per primary team
Subjective Data
-
Date of Service: September 29, 2023
pt seen and examined
feels about the same, some right sided tenderness, pain but controlled
harriett PO intake, no nausea
+fl and BM
Objective Data
-
Intake and Output
09/28/23 09/29/23 09/30/23
06:59 06:59 06:59
Intake Total 780 / 780 2880 / 2880
Output Total 40 / 40
Balance 760 / 760 2840 / 2840
Intake:
Oral fluids 2400 / 2400
IV fluids (Total) 720 / 720
IV piggybacks 50 / 50 480 / 480
Amount instilled into Drain (
Total)
Right Lower Abdomen
Output:
Drain Output (Total) 40 / 40
Right Lower Abdomen 20 / 20 40 / 40
Other:
Number of approximated MODERATE 4 3
amounts of urine
Vital Signs
Temp Pulse Resp BP Pulse Ox
98 F 76 16 117/66 92
09/29/23 07:05 09/29/23 07:05 09/29/23 07:05 09/29/23 07:05 09/29/23 07:05
Lab Results
09/29/23 07:09
09/29/23 07:09
Calcium 8.4 mg/dl (8.4-10.2) 09/29/23 07:09
Total Bilirubin 0.4 mg/dl (0.2-1.3) 09/23/23 05:21
Direct Bilirubin 0.3 mg/dl (0.0-0.4) 09/23/23 05:21
AST 21 U/L (14-36) 09/23/23 05:21
ALT 17 U/L (0-35) 09/23/23 05:21
Alkaline Phosphatase 104 U/L (38-126) 09/23/23 05:21
Total Protein 6.3 g/dl (6.3-8.2) 09/23/23 05:21
Albumin 3.3 g/dl (3.5-5.0) L 09/23/23 05:21
Physical Exam
-
NAD AAOx3
ABD: soft, obese, TTP localizing to right side, no R/R/G
IR drain with light serous fluid, no too purulent
--- NOTE | 2023-09-29 10:09 | W.PN.HOSP.TC ---
Today's Communication/Plan
-
Leukocytosis again trending down
Continue Unasyn as per ID
High riding consideration with general surgery recommending possible up in caliber of SARA drain
Continue to monitor and follow leukocytosis
Assessment / Plan
Assessment / Plan
Assessment:
Contained perforated appendicitis with abscess
- CT: Abnormal fluid collection in the right paracolic cutter measuring 6.8 x 3.6 x 4.8 cm immediately lateral to the appendix and adjacent to the cecum. Although the appendix is within the limits of normal in caliber there are some accompanying
inflammatory changes. Findings are suspicious for confined/contained perforated appendicitis or inflammatory/infectious process of the adjacent cecum such as perforated diverticulitis. No free air.
- s/p IRAD guided drainage 09/22; continues to have drainage/repeat CT scan performed 29 August slightly progressed free fluid in pelvis on the right and new on the left mild barium enhancement versus loculated fluid noted
-Surgery and conference with [facility] considering up caliber of SARA drain
- now with ecoli and viridans strep. ecoli is pansensitive. Asked infectious disease opinion regarding beta strep and possibly will need different antibiotics. ID following. Narrowed antibiotic to Unasyn
- pain control, anti-emetics
- diet: LRD
- GS following
WBC continues to be high; denies any worsening abdominal pain. consider additional imaging if leukocytosis do not improve. Defer to surgery; . no fever
E. Coli UTI
- continue IV Zosyn which is on for appendeceal abscess. from UTI standpoint she finished treatment
Acute hypoxic respiratory insufficiency likely secondary to atelectasis
continue with IS
Mild hyponatremia
monitor
Suspect renal insufficiency
- reviewed previous 1 years worth of labs on her portal, baseline Cr 1.1
- hold nephrotoxic agents (chlorthalidone, benazepril)
Muscle soreness of sternocleidomastoid secondary to lifting
- Muscle is sore and tender to palpation
- Doubt rotator cuff injury
- prn Tylenol
- s/p 1 dose Toradol in ER; hold further NSAIDs
- continue heat pad
Essential hypertension
- continue amlodipine
- continue atenolol
- parameters placed
Hypercholesterolemia
- continue statin
Type 2 diabetes
- diet controlled
- holding Mounjaro
Hypothyroidism
- continue levothyroxine
Anxiety/depression
- continue Xanax
- continue paroxetine
Hypokalemia
- replete as needed
Obesity
DVT ppx: SC heparin
Code: Full
General: No Apparent Distress
HEENT: Normocephalic and Atraumatic
Respiratory: Negative Wheezes
Cardiac: Regular Rhythm and S1/S2
GI: Soft and Nontender,IR drain
Neuro: AO x 3
Hematologic / Lymphatic: No Lymphadenopathy
Psych: Calm
I spent a total of 51 minutes with the patient or on the floor. More than 50% of this time involved counseling and coordination of care.
Anticipated Discharge: 24 - 48 hours
Subjective/Interval History
-
Date of Service: September 29, 2023
.
Only source of pain referred to the right side has prior nothing to the left.
Objective Data
-
Labs:
Laboratory Results
09/29/23
07:09
WBC 21.8 H
Hgb 12.8
Hct 40.6
Plt Count 613 H
Sodium 133 L
Potassium 3.5
Chloride 94 L
Carbon Dioxide 28
BUN 14
Creatinine 0.8
Glucose 95
Calcium 8.4
Vital Signs:
Vital Signs
Temp Pulse Resp BP Pulse Ox
98 F 76 16 117/66 92
09/29/23 07:05 09/29/23 07:05 09/29/23 07:05 09/29/23 07:05 09/29/23 07:05
I&O
09/28/23 09/29/23 09/30/23
06:59 06:59 06:59
Intake Total 780 / 780 2880 / 2880
Output Total 40 / 40
Balance 760 / 760 2840 / 2840
Review of Systems
-
History Source: Patient
Constitutional: Denies Fever
Abdomen/GI: Reports Abdominal Pain (Right side/no peritoneal sign)
Physical Exam
-
General: Well Developed
HEENT: Normocephalic
Respiratory: Clear to Auscultation
Cardiac: Regular Rhythm
GI: Soft and Tender (Right side no peritoneal sign/SARA drain with minimal drainage)
Psych: Calm
Data Reviewed
-
Total Time Spent with Patient (in minutes): 45
CT Scan: Report Reviewed by me (Repeat CT scan reviewed)
--- NOTE | 2023-09-29 14:02 | W.PN.ID1 ---
Date of Service
Date of Service: September 29, 2023
Today's Communication
Continue antibiotics.
Assessment / Plan
Appendiceal abscess
Leukocytosis
Thrombocytosis
RYLEY; improved
HTN
Dyslipidemia
DM
Renal insufficiency
Hypothyroidism
Anxiety
Recommendations:
Continue Unasyn 3 g IV every 6 hours.
Continue to monitor white count and temperature curve.
For possible drain repositioning later today.
Chief Complaint
-: Other (Abdominal/appendiceal abscess.)
Subjective / Review of Systems
Review of Systems: No Fever, No Chills and Abdominal Pain (Only at site of drain placement.)
Vital Signs / Physical Exam
Vital Signs
Vital Signs
Temp Pulse Resp BP Pulse Ox
98 F 76 16 117/66 92
09/29/23 07:05 09/29/23 07:05 09/29/23 07:05 09/29/23 07:05 09/29/23 08:40
Physical Exam
Constitutional: No Acute Distress, Comfortable and Non-toxic
Eyes: No Conjunctival Hemorrhage and Sclera Anicteric
Cardiovascular: S1/S2; Negative S3/S4
Pulmonary: Non Labored
Gastrointestinal: Soft, Non Distended and Other (SARA in place with scant drainage.)
Neurological: Awake and Alert
Psychological: Calm
Objective Data
Lab Data
Lab Results
Laboratory Tests
09/28/23
05:29
WBC 24.0 H
09/29/23 07:09
09/29/23 07:09
Estimated Creat Clear 91 ml/min 09/29/23 07:09
Lactic Acid Cancelled 09/21/23 21:27
Total Bilirubin 0.4 mg/dl (0.2-1.3) 09/23/23 05:21
AST 21 U/L (14-36) 09/23/23 05:21
ALT 17 U/L (0-35) 09/23/23 05:21
Alkaline Phosphatase 104 U/L (38-126) 09/23/23 05:21
Most recent labs reviewed.
Micro Results:
09/23/23 20:16 Wound Culture - Final
Abdomen Escherichia coli
Viridans Streptococcus Group
Gram Stain - Final
09/21/23 23:25 Blood Culture - Final
Blood/Venous No Growth - Final Report
09/21/23 23:11 Blood Culture - Final
Blood/Venous No Growth - Final Report
09/23/23 09:07 Salmonella/Shigella Culture - Final
Feces/Stool No Salmonella, Shigella, Aeromonas or Plesiomonas species
isolated.
Campylobacter Culture - Final
No Campylobacter species isolated.
Shiga Toxin Test - Final
No E. coli Shiga Toxin 1 or 2 detected.
Stool Leukocytes - Final
09/21/23 21:38 Urine Culture - Final
Urine Escherichia coli
09/23/23 09:07 - Final
Feces/Stool Negative for Norovirus GI and GII.
09/23/23 04:12 C. difficile GDH Antigen & Toxins - Final
Feces/Stool Negative for toxigenic C.difficile
Imaging:
09/23/2023 CT abdomen/pelvis with IV and oral contrast: Abnormal fluid collection in the right paracolic cutter measuring 6.8 x 3.6 x 4.8 cm immediately lateral to the appendix and adjacent to the cecum. Although the appendix is within the limits of
normal in caliber there are some accompanying inflammatory changes. Findings are suspicious for confined/contained perforated appendicitis or inflammatory/infectious process of the adjacent cecum such as perforated diverticulitis. No free air.
Likely accompanying small bowel ileus. Prior cholecystectomy.
--- NOTE | 2023-09-29 14:33 | CM ---
Ernesto continues on IV abx q6 hours. CM will continue to follow for discharge needs.
[2023-09-29 15:00] VITALS: BP 116/60
--- NOTE | 2023-09-29 17:30 | PTCARENOTE ---
Received patient from [facility] s/p repositioning of her SARA drain. New dressing noted, CDI. Patient comfortable.
[2023-09-29] MEDS: TYLENOL 650 MG PO (20:00)
[2023-09-29] MEDS: XANAX 0.25 MG PO (23:02)
[2023-09-29 23:55] VITALS: BP 106/62
[2023-09-30 05:28] LABS: Hematocrit 37.9 % (37.0-47.0); Hemoglobin 12.9 g/dL (12.0-16.0); Mean Corpuscular Hgb 28.6 pg (27.0-31.0); Mean Platelet Volume 9.5 fL (7.4-10.4); Platelet Count 594 10^3/uL (130-400); Red Blood Cell Count 4.51 10^6/uL (4.20-5.40); Red Cell Dist. Width 13.3 % (11.5-14.5); White Blood Cell Count 18.3 10^3/uL (4.8-10.8)
[2023-09-30] MEDS: UNASYN IV ×3 (05:34→18:09)
[2023-09-30] MEDS: SYNTHROID 150 MCG PO (05:34)
[2023-09-30 07:00] VITALS: BP 107/59
--- NOTE | 2023-09-30 08:40 | W.PN.GS2 ---
Today's Communication / Plan
-
-- Continue IV antibiotics per ID
-- Trend labs, if worsening of WBC over the weekend will plan on operative intervention early next week
Assessment / Plan
-
Assessment: 62 yo female with a h/o open cholecystectomy, DM and hypothyroid who presented with mid abdominal abdominal pain on 09/21/23. Initial CT read as relatively benign. UTI noted and antibiotics were initiated on presentation. She was not
improving clinically. WBC noted to be rising with no improvement/worsening in pain and thus repeat imaging was preformed with findings consistent with perforated appendicitis with abscess prompting subsequent surgical consultation.
s/p IR drain placement on 09/22
Urine cx +ecoli, Drain cx +ecoli and strep viridans. Blood cx NGTD
Rpt CT 09/27 with partially undrained RUQ collection and some new collections that are small and not amenable to drainage, and pelvic LUQ collections
s/p IR drain exchange on 09/28
Plan:
-- Continue low residue diet
-- Continue IV antibiotics per ID
-- Out of bed, and walking around.
-- Trend labs, if worsening of WBC over the weekend will plan on operative intervention early next week
-- Medical management as per primary team
Subjective Data
-
Date of Service: September 30, 2023
No complaints. Denies any worsening abdominal pain, feels slightly improved post drain manipulation. No fevers or chills. Passing flatus and stool, tolerating a LRD.
Objective Data
-
Intake and Output
09/29/23 09/30/23 10/01/23
06:59 06:59 06:59
Intake Total 2880 / 2880 1210 / 1210
Output Total 40 / 40 20 / 20
Balance 2840 / 2840 1190 / 1190
Intake:
Oral fluids 2400 / 2400 960 / 960
IV piggybacks 480 / 480 240 / 240
Amount instilled into Drain (
Total)
Right Lower Abdomen
Output:
Drain Output (Total)
Right Lower Abdomen
Other:
Number of approximated MODERATE 3 2
amounts of urine
Vital Signs
Temp Pulse Resp BP Pulse Ox
97.6 F 64 18 107/59 93
09/30/23 07:00 09/30/23 07:00 09/30/23 07:00 09/30/23 07:00 09/30/23 07:00
Lab Results
09/30/23 04:49
09/29/23 07:09
Calcium 8.4 mg/dl (8.4-10.2) 09/29/23 07:09
Total Bilirubin 0.4 mg/dl (0.2-1.3) 09/23/23 05:21
Direct Bilirubin 0.3 mg/dl (0.0-0.4) 09/23/23 05:21
AST 21 U/L (14-36) 09/23/23 05:21
ALT 17 U/L (0-35) 09/23/23 05:21
Alkaline Phosphatase 104 U/L (38-126) 09/23/23 05:21
Total Protein 6.3 g/dl (6.3-8.2) 09/23/23 05:21
Albumin 3.3 g/dl (3.5-5.0) L 09/23/23 05:21
Physical Exam
-
Gen: NAD
Abd: obese, soft, minimal tenderness, ND, non-peritoneal, IR drain with serous output
[2023-09-30] MEDS: NORVASC 10 MG PO (08:49)
[2023-09-30] MEDS: VISBIOME 1 CAP PO (08:49)
[2023-09-30] MEDS: PAXIL 40 MG PO (08:49)
[2023-09-30] MEDS: LIPITOR 10 MG PO (08:50)
[2023-09-30] MEDS: TENORMIN 100 MG PO (08:50)
[2023-09-30] MEDS: HEPARIN 5000 UNITS SC ×2 (08:51→21:05)
--- NOTE | 2023-09-30 09:31 | W.PN.HOSP.TC ---
Today's Communication/Plan
-
Continue to monitor leukocytosis which continues to trend down as long as it does no surgical intervention recommended
Should she have issues over the weekend with either increasing abdominal pain or increasing leukocytosis surgery plan is for intervention early next week
Continue Unasyn after infectious disease
Assessment / Plan
Assessment / Plan
Assessment:
Contained perforated appendicitis with abscess
- CT: Abnormal fluid collection in the right paracolic cutter measuring 6.8 x 3.6 x 4.8 cm immediately lateral to the appendix and adjacent to the cecum. Although the appendix is within the limits of normal in caliber there are some accompanying
inflammatory changes. Findings are suspicious for confined/contained perforated appendicitis or inflammatory/infectious process of the adjacent cecum such as perforated diverticulitis. No free air.
- s/p [facility] guided drainage 09/22; continues to have drainage/repeat CT scan performed 27 September slightly progressed free fluid in pelvis on the right and new on the left mild barium enhancement versus loculated fluid noted
-Surgery and in consultation with interventional radiology agreed to upper caliber and SARA drain now 8.5 [place]
- now with ecoli and viridans strep. ecoli is pansensitive. Asked infectious disease opinion regarding beta strep and possibly will need different antibiotics. ID following. Narrowed antibiotic to Unasyn
- pain control, anti-emetics
- diet: LRD
- GS following
WBC continues now trending down and as long as trend continues no surgical intervention recommended per general surgery
E. Coli UTI
- continue IV Unasyn which is on for appendeceal abscess. from UTI standpoint she finished treatment
Acute hypoxic respiratory insufficiency likely secondary to atelectasis
continue with IS
Mild hyponatremia
monitor
Suspect renal insufficiency
- reviewed previous 1 years worth of labs on her portal, baseline Cr 1.1
- hold nephrotoxic agents (chlorthalidone, benazepril)
Muscle soreness of sternocleidomastoid secondary to lifting
- Muscle is sore and tender to palpation
- Doubt rotator cuff injury
- prn Tylenol
- s/p 1 dose Toradol in ER; hold further NSAIDs
- continue heat pad
Essential hypertension
- continue amlodipine
- continue atenolol
- parameters placed
Hypercholesterolemia
- continue statin
Type 2 diabetes
- diet controlled
- holding Mounjaro
Hypothyroidism
- continue levothyroxine
Anxiety/depression
- continue Xanax
- continue paroxetine
Hypokalemia
- replete as needed
Obesity
DVT ppx: SC heparin
Code: Full
General: No Apparent Distress
HEENT: Normocephalic and Atraumatic
Respiratory: Negative Wheezes
Cardiac: Regular Rhythm and S1/S2
GI: Soft and Nontender,IR drain
Neuro: AO x 3
Hematologic / Lymphatic: No Lymphadenopathy
Psych: Calm
I spent a total of 51 minutes with the patient or on the floor. More than 50% of this time involved counseling and coordination of care.
Anticipated Discharge: 24 - 48 hours
Subjective/Interval History
-
Date of Service: September 30, 2023
Not much abdominal pain referred no nausea eating okay no issues with new SARA drain
Objective Data
-
Labs:
Laboratory Results
09/30/23
04:49
WBC 18.3 H
Hgb 12.9
Hct 37.9
Plt Count 594 H
Vital Signs:
Vital Signs
Temp Pulse Resp BP Pulse Ox
97.6 F 64 18 107/59 93
09/30/23 07:00 09/30/23 08:50 09/30/23 07:00 09/30/23 08:50 09/30/23 07:00
I&O
09/29/23 09/30/23 10/01/23
06:59 06:59 06:59
Intake Total 2880 / 2880 1210 / 1210
Output Total 40 / 40 20 / 20
Balance 2840 / 2840 1190 / 1190
Review of Systems
-
History Source: Patient
All other systems: Not reviewed unless documented
Constitutional: Reports No Symptoms
Physical Exam
-
General: Well Developed
HEENT: Normocephalic
Respiratory: Clear to Auscultation
Cardiac: Regular Rhythm
GI: Normal Bowel Sounds, Tender (rt side) and Ostomy (J-P drain)
Psych: Calm
--- NOTE | 2023-09-30 15:20 | W.PN.ID1 ---
Date of Service
Date of Service: September 30, 2023
Today's Communication
Continue antibiotics.
Assessment / Plan
Appendiceal abscess
Leukocytosis
Thrombocytosis
RYLEY; improved
HTN
Dyslipidemia
DM
Renal insufficiency
Hypothyroidism
Anxiety
Recommendations:
Continue Unasyn 3 g IV every 6 hours.
Continue to monitor white count and temperature curve.
����������������������������������������������������������
Chief Complaint
-: Other (Abdominal/appendiceal abscess.)
Subjective / Review of Systems
Patient seen and examined. Since yesterday, SARA drain has been upsized to and is now producing more drainage. Denies fevers or chills. Denies significant abdominal discomfort.
Vital Signs / Physical Exam
Vital Signs
Vital Signs
Temp Pulse Resp BP Pulse Ox
97.6 F 64 18 107/59 95
09/30/23 07:00 09/30/23 08:50 09/30/23 07:00 09/30/23 08:50 09/30/23 07:30
Physical Exam
Physical Exam:
Constitutional: No Acute Distress, Comfortable and Non-toxic
Eyes: No Conjunctival Hemorrhage and Sclera Anicteric
Cardiovascular: S1/S2; Negative S3/S4
Pulmonary: Non Labored
Gastrointestinal: Soft, Non Distended and Other (SARA in place with scant drainage.)
Neurological: Awake and Alert
Psychological: Calm
Objective Data
Lab Data
Lab Results
09/30/23 04:49
09/29/23 07:09
Estimated Creat Clear 91 ml/min 09/29/23 07:09
Lactic Acid Cancelled 09/21/23 21:27
Total Bilirubin 0.4 mg/dl (0.2-1.3) 09/23/23 05:21
AST 21 U/L (14-36) 09/23/23 05:21
ALT 17 U/L (0-35) 09/23/23 05:21
Alkaline Phosphatase 104 U/L (38-126) 09/23/23 05:21
Most recent labs reviewed.
Micro Results:
09/23/23 20:16 Wound Culture - Final
Abdomen Escherichia coli
Viridans Streptococcus Group
Gram Stain - Final
09/21/23 23:25 Blood Culture - Final
Blood/Venous No Growth - Final Report
09/21/23 23:11 Blood Culture - Final
Blood/Venous No Growth - Final Report
09/23/23 09:07 Salmonella/Shigella Culture - Final
Feces/Stool No Salmonella, Shigella, Aeromonas or Plesiomonas species
isolated.
Campylobacter Culture - Final
No Campylobacter species isolated.
Shiga Toxin Test - Final
No E. coli Shiga Toxin 1 or 2 detected.
Stool Leukocytes - Final
09/21/23 21:38 Urine Culture - Final
Urine Escherichia coli
09/23/23 09:07 - Final
Feces/Stool Negative for Norovirus GI and GII.
09/23/23 04:12 C. difficile GDH Antigen & Toxins - Final
Feces/Stool Negative for toxigenic C.difficile
Wound/abscess/other Cult Final 09/23/23
Moderate Escherichia coli of two morphotypes
Moderate Viridans Streptococcus Group
Penicillin G or V with or without Gentamicin is the drug of
choice for treating Viridans Streptococcus Group. Please
notify the Microbiology Laboratory within 72 hours if
additional testing is needed.
Organism 1 Escherichia coli
1. Escherichia coli
[facility] RX
--------- ---
Amoxicillin/Potas. Clavulanate <=8/4 S
Ampicillin <=8 S
Ampicillin/Sulbactam <=8/4 S
Cefazolin <=2 S
Ertapenem <=0.5 S
Ciprofloxacin <=0.25 S
Gentamicin <=4 S
Levofloxacin <=0.5 S
Meropenem <=1 S
Piperacillin/Tazobactam <=16 S
Tobramycin <=4 S
Trimethoprim/Sulfamethoxazole <=2/38 S
Imaging:
09/23/2023 CT abdomen/pelvis with IV and oral contrast: Abnormal fluid collection in the right paracolic cutter measuring 6.8 x 3.6 x 4.8 cm immediately lateral to the appendix and adjacent to the cecum. Although the appendix is within the limits of
normal in caliber there are some accompanying inflammatory changes. Findings are suspicious for confined/contained perforated appendicitis or inflammatory/infectious process of the adjacent cecum such as perforated diverticulitis. No free air.
Likely accompanying small bowel ileus. Prior cholecystectomy.
[2023-09-30 15:24] VITALS: BP 99/56
[2023-09-30] MEDS: XANAX 0.25 MG PO (21:05)
[2023-09-30 23:25] VITALS: BP 98/57
[2023-10-01] MEDS: UNASYN IV ×5 (00:18→23:52)
[2023-10-01] MEDS: SYNTHROID 150 MCG PO (05:25)
[2023-10-01 07:05] VITALS: BP 107/60
[2023-10-01 08:46] LABS: Hemoglobin 12.8 g/dL (12.0-16.0); Mean Corp Hgb Conc. 32.8 g/dL (33.0-37.0); Mean Corpuscular Hgb 28.2 pg (27.0-31.0); Mean Corpuscular Volume 85.9 fL (81.0-99.0); Mean Platelet Volume 9.1 fL (7.4-10.4); Platelet Count 673 10^3/uL (130-400); Red Blood Cell Count 4.54 10^6/uL (4.20-5.40); Red Cell Dist. Width 13.4 % (11.5-14.5); White Blood Cell Count 18.2 10^3/uL (4.8-10.8)
[2023-10-01 09:05] LABS: Blood Urea Nitrogen 11 mg/dl (7-17); Calcium 8.5 mg/dl (8.4-10.2); Carbon Dioxide 28 mmol/L (22-30); Chloride 98 mmol/L (98-107); Estimated Creatinine Clearance 91 ml/min; Glucose 92 mg/dl (70-99); Potassium 3.3 mmol/L (3.5-5.1); Sodium 135 mmol/L (135-145); eGFR > 60.00
[2023-10-01] MEDS: TENORMIN PO (10:17)
[2023-10-01] MEDS: LIPITOR 10 MG PO (10:17)
[2023-10-01] MEDS: PAXIL 40 MG PO (10:17)
[2023-10-01] MEDS: VISBIOME 1 CAP PO (10:17)
[2023-10-01] MEDS: NORVASC PO (10:18)
[2023-10-01] MEDS: HEPARIN 5000 UNITS SC ×2 (10:18→20:45)
--- NOTE | 2023-10-01 10:39 | W.PN.ID1 ---
Date of Service
Date of Service: October 01, 2023
Today's Communication
Continue antibiotics
Assessment / Plan
Appendiceal abscess
Leukocytosis
Thrombocytosis
RYLEY; improved
HTN
Dyslipidemia
DM
Renal insufficiency
Hypothyroidism
Anxiety
Recommendations:
Continue Unasyn 3 g IV every 6 hours. (d#10 abx)
Continue to monitor white count and temperature curve.
����������������������������������������������������������
Chief Complaint
-: Leukocytosis and Other (Abdominal/appendiceal abscess.)
Subjective / Review of Systems
Review of Systems: No Fever, No Chills and No Abdominal Pain
Vital Signs / Physical Exam
Vital Signs
Vital Signs
Temp Pulse Resp BP Pulse Ox
97.8 F 69 16 99/56 93
10/01/23 07:05 10/01/23 10:18 10/01/23 07:05 10/01/23 10:18 10/01/23 07:05
Physical Exam
Constitutional: No Acute Distress, Comfortable, Non-toxic and Obese
Eyes: Sclera Anicteric
Cardiovascular: S1/S2; Negative S3/S4
Pulmonary: Non Labored
Gastrointestinal: Soft, Non Distended, Normal Bowel Sounds and Other (SARA in place)
Neurological: Awake and Alert
Psychological: Calm
Objective Data
Lab Data
Lab Results
10/01/23 08:05
10/01/23 08:05
Estimated Creat Clear 91 ml/min 10/01/23 08:05
Lactic Acid Cancelled 09/21/23 21:27
Total Bilirubin 0.4 mg/dl (0.2-1.3) 09/23/23 05:21
AST 21 U/L (14-36) 09/23/23 05:21
ALT 17 U/L (0-35) 09/23/23 05:21
Alkaline Phosphatase 104 U/L (38-126) 09/23/23 05:21
Most recent labs reviewed.
Micro Results:
09/23/23 20:16 Wound Culture - Final
Abdomen Escherichia coli
Viridans Streptococcus Group
Gram Stain - Final
09/21/23 23:25 Blood Culture - Final
Blood/Venous No Growth - Final Report
09/21/23 23:11 Blood Culture - Final
Blood/Venous No Growth - Final Report
09/23/23 09:07 Salmonella/Shigella Culture - Final
Feces/Stool No Salmonella, Shigella, Aeromonas or Plesiomonas species
isolated.
Campylobacter Culture - Final
No Campylobacter species isolated.
Shiga Toxin Test - Final
No E. coli Shiga Toxin 1 or 2 detected.
Stool Leukocytes - Final
09/21/23 21:38 Urine Culture - Final
Urine Escherichia coli
09/23/23 09:07 - Final
Feces/Stool Negative for Norovirus GI and GII.
09/23/23 04:12 C. difficile GDH Antigen & Toxins - Final
Feces/Stool Negative for toxigenic C.difficile
Wound/abscess/other Cult Final 09/23/23
Moderate Escherichia coli of two morphotypes
Moderate Viridans Streptococcus Group
Penicillin G or V with or without Gentamicin is the drug of
choice for treating Viridans Streptococcus Group. Please
notify the Microbiology Laboratory within 72 hours if
additional testing is needed.
Organism 1 Escherichia coli
1. Escherichia coli
[facility] RX
--------- ---
Amoxicillin/Potas. Clavulanate <=8/4 S
Ampicillin <=8 S
Ampicillin/Sulbactam <=8/4 S
Cefazolin <=2 S
Ertapenem <=0.5 S
Ciprofloxacin <=0.25 S
Gentamicin <=4 S
Levofloxacin <=0.5 S
Meropenem <=1 S
Piperacillin/Tazobactam <=16 S
Tobramycin <=4 S
Trimethoprim/Sulfamethoxazole <=2/38 S
Imaging:
09/23/2023 CT abdomen/pelvis with IV and oral contrast: Abnormal fluid collection in the right paracolic cutter measuring 6.8 x 3.6 x 4.8 cm immediately lateral to the appendix and adjacent to the cecum. Although the appendix is within the limits of
normal in caliber there are some accompanying inflammatory changes. Findings are suspicious for confined/contained perforated appendicitis or inflammatory/infectious process of the adjacent cecum such as perforated diverticulitis. No free air.
Likely accompanying small bowel ileus. Prior cholecystectomy.
--- NOTE | 2023-10-01 11:04 | W.PN.GS2 ---
Addendum entered and electronically signed by Gordo Medina MD 10/01/23 12:11:
Patient seen and examined. With assessment plan as documented below.
No changes. Abdominal pain stable and/or slightly improved. No nausea or vomiting. No fevers.
Gen: NAD
Abd: soft, NT/ND, non-peritoneal
Patient is a 62 yo F p/w perforated appendicitis
s/p IR drain placement on 09/22
Urine cx +ecoli, Drain cx +ecoli and strep viridans. Blood cx NGTD
Rpt CT 09/27 with partially undrained RUQ collection and some new collections that are small and not amenable to drainage, and pelvic LUQ collections
s/p IR drain exchange on 09/28
Leukocytosis persists, afebrile, VSS
Plan:
-- Continue low residue diet
-- Continue IV antibiotics per ID
-- Out of bed, and walking around.
-- Trend labs, if worsening of WBC over the weekend or no improvement will plan on operative intervention early next week
-- Medical management as per primary team
Original Note:
Today's Communication / Plan
-
Trend labs
Continue abx/drain
Assessment / Plan
-
Assessment: 62 yo female with a h/o open cholecystectomy, DM and hypothyroid who presented with mid abdominal abdominal pain on 09/21/23. Initial CT read as relatively benign. UTI noted and antibiotics were initiated on presentation. She was not
improving clinically. WBC noted to be rising with no improvement/worsening in pain and thus repeat imaging was preformed with findings consistent with perforated appendicitis with abscess prompting subsequent surgical consultation.
s/p IR drain placement on 09/22
Urine cx +ecoli, Drain cx +ecoli and strep viridans. Blood cx NGTD
Rpt CT 09/27 with partially undrained RUQ collection and some new collections that are small and not amenable to drainage, and pelvic LUQ collections
s/p IR drain exchange on 5/30
Leukocytosis persists, afebrile, VSS
Plan:
-- Continue low residue diet
-- Continue IV antibiotics per ID
-- Out of bed, and walking around.
-- Trend labs, if worsening of WBC over the weekend or no improvement will plan on operative intervention early next week
-- Medical management as per primary team
Subjective Data
-
Date of Service: October 01, 2023
Patient seen and examined at bedside with Dr. Medina. Denies n/v. Tolerating diet. Pain gradually improving.
Objective Data
-
Intake and Output
09/30/23 10/01/23 10/02/23
06:59 06:59 06:59
Intake Total 1210 / 1210 1570 / 1570
Output Total 20
Balance 1190 / 1190 1550 / 1550
Intake:
Oral fluids 960 / 960 1560 / 1560
IV piggybacks 240 / 240
Amount instilled into Drain (
Total)
Right Lower Abdomen
Output:
Drain Output (Total) 20 20 / 20
Right Lower Abdomen 20 / 20 20 / 20
Other:
Number of approximated MODERATE 2 4
amounts of urine
Vital Signs
Temp Pulse Resp BP Pulse Ox
97.8 F 69 16 99/56 93
10/01/23 07:05 10/01/23 10:18 10/01/23 07:05 10/01/23 10:18 10/01/23 07:05
Lab Results
10/01/23 08:05
10/01/23 08:05
Calcium 8.5 mg/dl (8.4-10.2) 10/01/23 08:05
Total Bilirubin 0.4 mg/dl (0.2-1.3) 09/23/23 05:21
Direct Bilirubin 0.3 mg/dl (0.0-0.4) 09/23/23 05:21
AST 21 U/L (14-36) 09/23/23 05:21
ALT 17 U/L (0-35) 09/23/23 05:21
Alkaline Phosphatase 104 U/L (38-126) 09/23/23 05:21
Total Protein 6.3 g/dl (6.3-8.2) 09/23/23 05:21
Albumin 3.3 g/dl (3.5-5.0) L 09/23/23 05:21
Physical Exam
-
Gen: NAD
Abd: obese, soft, minimal tenderness, ND, non-peritoneal, IR drain with serous output
[2023-10-01 15:10] VITALS: BP 98/56
--- NOTE | 2023-10-01 17:18 | W.PN.HOSP.TC ---
Today's Communication/Plan
-
Right lower quadrant tube has been repositioned and upsized on 09/28
Continue IV antibiotics per
Monitor output
Low residue diet
Follow electrolytes and WBC.
Assessment / Plan
Assessment / Plan
Assessment:
Contained perforated appendicitis with abscess
- CT: Abnormal fluid collection in the right paracolic cutter measuring 6.8 x 3.6 x 4.8 cm immediately lateral to the appendix and adjacent to the cecum. Although the appendix is within the limits of normal in caliber there are some accompanying
inflammatory changes. Findings are suspicious for confined/contained perforated appendicitis or inflammatory/infectious process of the adjacent cecum such as perforated diverticulitis. No free air.
- s/p [facility] guided drainage 09/22; continues to have drainage/repeat CT scan performed 27 September slightly progressed free fluid in pelvis on the right and new on the left mild barium enhancement versus loculated fluid noted
-Surgery and in consultation with interventional radiology agreed to upper caliber and SARA drain now 8.5 [place]
- now with ecoli and viridans strep. ecoli is pansensitive. Asked infectious disease opinion regarding beta strep and possibly will need different antibiotics. ID following. Narrowed antibiotic to Unasyn
- pain control, anti-emetics
- diet: LRD
- GS following
WBC continues now trending down and as long as trend continues no surgical intervention recommended per general surgery
E. Coli UTI
- continue IV Unasyn which is on for appendeceal abscess. from UTI standpoint she finished treatment
Acute hypoxic respiratory insufficiency likely secondary to atelectasis
continue with IS
Mild hyponatremia
monitor
Suspect renal insufficiency
- reviewed previous 1 years worth of labs on her portal, baseline Cr 1.1
- hold nephrotoxic agents (chlorthalidone, benazepril)
Muscle soreness of sternocleidomastoid secondary to lifting
- Muscle is sore and tender to palpation
- Doubt rotator cuff injury
- prn Tylenol
- s/p 1 dose Toradol in ER; hold further NSAIDs
- continue heat pad
Essential hypertension
- continue amlodipine
- continue atenolol
- parameters placed
Hypercholesterolemia
- continue statin
Type 2 diabetes
- diet controlled
- holding Mounjaro
Hypothyroidism
- continue levothyroxine
Anxiety/depression
- continue Xanax
- continue paroxetine
Hypokalemia
- replete as needed
Obesity
DVT ppx: SC heparin
Code: Full
Anticipated Discharge: > 48 hours
Subjective/Interval History
-
Date of Service: October 01, 2023
Objective Data
-
Labs:
Laboratory Results
10/01/23
08:05
WBC 18.2 H
Hgb 12.8
Hct 39.0
Plt Count 673 H
Sodium 135
Potassium 3.3 L
Chloride 98
Carbon Dioxide 28
BUN 11
Creatinine 0.8
Glucose 92
Calcium 8.5
Vital Signs:
Vital Signs
Temp Pulse Resp BP Pulse Ox
98 F 74 24 98/56 93
10/01/23 15:10 10/01/23 15:10 10/01/23 15:10 10/01/23 15:10 10/01/23 15:10
I&O
09/30/23 10/01/23 10/02/23
06:59 06:59 06:59
Intake Total 1210 / 1210 1570 / 1570
Output Total
Balance 1190 / 1190 1550 / 1550
[2023-10-01] MEDS: XANAX 0.25 MG PO (20:51)
[2023-10-01 23:52] VITALS: BP 100/54
[2023-10-02] MEDS: UNASYN IV ×4 (05:25→23:51)
[2023-10-02] MEDS: SYNTHROID 150 MCG PO (05:26)
[2023-10-02 06:54] LABS: Hematocrit 37.1 % (37.0-47.0); Hemoglobin 12.1 g/dL (12.0-16.0); Mean Corp Hgb Conc. 32.6 g/dL (33.0-37.0); Mean Corpuscular Hgb 28.7 pg (27.0-31.0); Mean Corpuscular Volume 87.9 fL (81.0-99.0); Mean Platelet Volume 9.2 fL (7.4-10.4); Platelet Count 677 10^3/uL (130-400); Red Blood Cell Count 4.22 10^6/uL (4.20-5.40); Red Cell Dist. Width 13.3 % (11.5-14.5); White Blood Cell Count 22.6 10^3/uL (4.8-10.8)
[2023-10-02 07:00] VITALS: BP 117/63
[2023-10-02 07:02] LABS: ALT (SGPT) < 10 U/L (0-35); AST (SGOT) 19 U/L (14-36); Albumin 2.8 g/dl (3.5-5.0); Alkaline Phosphatase 122 U/L (38-126); Blood Urea Nitrogen 9 mg/dl (7-17); Calcium 8.3 mg/dl (8.4-10.2); Carbon Dioxide 27 mmol/L (22-30); Chloride 99 mmol/L (98-107); Estimated Creatinine Clearance 103 ml/min; Glucose 98 mg/dl (70-99); Potassium 2.9 mmol/L (3.5-5.1); Sodium 135 mmol/L (135-145); Total Bilirubin 0.3 mg/dl (0.2-1.3); eGFR > 60.00
[2023-10-02] MEDS: LIPITOR 10 MG PO (08:34)
[2023-10-02] MEDS: VISBIOME 1 CAP PO (08:34)
[2023-10-02] MEDS: HEPARIN 5000 UNITS SC ×2 (08:34→21:19)
[2023-10-02] MEDS: PAXIL 40 MG PO (08:34)
[2023-10-02 08:38] VITALS: BP 122/61
[2023-10-02] MEDS: TENORMIN 100 MG PO (08:59)
[2023-10-02] MEDS: KCL 270 MEQ IV (09:54)
--- NOTE | 2023-10-02 10:05 | W.PN.GS2 ---
Addendum entered and electronically signed by Gordo Medina MD 10/02/23 10:17:
Patient seen and examined. Agree with assessment plan as documented below.
No complaints. Abdominal exam benign. WBC on the rise. Recommend operative management - plan for laparoscopic appendectomy possible exploratory laparotomy tomorrow. Continue with medical management at this time. NPO past midnight.
Original Note:
Today's Communication / Plan
-
OR tomorrow
Assessment / Plan
-
Assessment: 62 yo female with a h/o open cholecystectomy, DM and hypothyroid who presented with mid abdominal abdominal pain on 09/21/23. Initial CT read as relatively benign. UTI noted and antibiotics were initiated on presentation. She was not
improving clinically. WBC noted to be rising with no improvement/worsening in pain and thus repeat imaging was preformed with findings consistent with perforated appendicitis with abscess prompting subsequent surgical consultation.
s/p IR drain placement on 09/22
Urine cx +ecoli, Drain cx +ecoli and strep viridans. Blood cx NG
Rpt CT 09/27 with partially undrained RUQ collection and some new collections that are small and not amenable to drainage, and pelvic LUQ collections
s/p IR drain exchange on 09/28
Worsening Leukocytosis, afebrile, VSS
Plan:
-- Continue low residue diet today, NPO after MN
-- Continue IV antibiotics per ID
-- Out of bed, increase activity
-- OR tomorrow for lap appi possible ex lap pending operative findings
-- Medical management as per primary team
Subjective Data
-
Date of Service: October 02, 2023
Patient seen and examined at bedside with Dr. Medina. Denies n/v. Tolerating diet. No acute complaints.
Objective Data
-
Intake and Output
10/01/23 10/02/23 10/03/23
06:59 06:59 06:59
Intake Total 1570 / 1570 490 / 490
Output Total
Balance 1550 / 1550 485 / 485
Intake:
Oral fluids 1560 / 1560 480 / 480
Amount instilled into Drain (
Total)
Right Lower Abdomen
Output:
Drain Output (Total)
Right Lower Abdomen
Other:
Number of approximated MODERATE 4 3
amounts of urine
Vital Signs
Temp Pulse Resp BP Pulse Ox
99 F 70 18 122/63 94
10/02/23 07:00 10/02/23 08:59 10/02/23 07:00 10/02/23 08:59 10/02/23 07:00
Lab Results
10/02/23 06:16
10/02/23 06:16
Calcium 8.3 mg/dl (8.4-10.2) L 10/02/23 06:16
Total Bilirubin 0.3 mg/dl (0.2-1.3) 10/02/23 06:16
Direct Bilirubin 0.3 mg/dl (0.0-0.4) 09/23/23 05:21
AST 19 U/L (14-36) 10/02/23 06:16
ALT < 10 U/L (0-35) 10/02/23 06:16
Alkaline Phosphatase 122 U/L (38-126) 10/02/23 06:16
Total Protein 6.0 g/dl (6.3-8.2) L 10/02/23 06:16
Albumin 2.8 g/dl (3.5-5.0) L 10/02/23 06:16
Physical Exam
-
Gen: NAD
Abd: obese, soft, minimal tenderness, ND, non-peritoneal, IR drain with serous output
[2023-10-02 12:36] VITALS: BP 96/58
[2023-10-02] MEDS: NORVASC PO (12:37)
--- NOTE | 2023-10-02 12:50 | W.PN.ID1 ---
Date of Service
Date of Service: October 02, 2023
Today's Communication
Continue antibiotics.
Assessment / Plan
Appendiceal abscess
Leukocytosis
- Up today
Thrombocytosis
RYLEY; improved
HTN
Dyslipidemia
DM
Renal insufficiency
Hypothyroidism
Anxiety
Recommendations:
Continue Unasyn 3 g IV every 6 hours. (d#10 abx)
Continue to monitor white count and temperature curve.
For tentative surgery tomorrow. Would check intraoperative cultures if possible.
Antibiotic regimen modification following surgery if necessary.
����������������������������������������������������������
Chief Complaint
-: Leukocytosis and Other (Abdominal/appendiceal abscess.)
Subjective / Review of Systems
Review of Systems: No Fever and No Chills
Vital Signs / Physical Exam
Vital Signs
Vital Signs
Temp Pulse Resp BP Pulse Ox
99 F 70 18 96/58 94
10/02/23 07:00 10/02/23 08:59 10/02/23 07:00 10/02/23 12:37 10/02/23 07:00
Physical Exam
Constitutional: No Acute Distress, Comfortable, Non-toxic and Obese
Head: Normocephalic
Eyes: Sclera Anicteric
Pulmonary: Non Labored
Gastrointestinal: Soft, Non Distended and Other (SARA in place.)
Neurological: Awake and Alert
Psychological: Calm
Objective Data
Lab Data
Lab Results
10/02/23 06:16
10/02/23 06:16
Estimated Creat Clear 103 ml/min 10/02/23 06:16
Lactic Acid Cancelled 09/21/23 21:27
Total Bilirubin 0.3 mg/dl (0.2-1.3) 10/02/23 06:16
AST 19 U/L (14-36) 10/02/23 06:16
ALT < 10 U/L (0-35) 10/02/23 06:16
Alkaline Phosphatase 122 U/L (38-126) 10/02/23 06:16
Most recent labs reviewed.
Micro Results:
09/23/23 20:16 Wound Culture - Final
Abdomen Escherichia coli
Viridans Streptococcus Group
Gram Stain - Final
09/21/23 23:25 Blood Culture - Final
Blood/Venous No Growth - Final Report
09/21/23 23:11 Blood Culture - Final
Blood/Venous No Growth - Final Report
09/23/23 09:07 Salmonella/Shigella Culture - Final
Feces/Stool No Salmonella, Shigella, Aeromonas or Plesiomonas species
isolated.
Campylobacter Culture - Final
No Campylobacter species isolated.
Shiga Toxin Test - Final
No E. coli Shiga Toxin 1 or 2 detected.
Stool Leukocytes - Final
09/21/23 21:38 Urine Culture - Final
Urine Escherichia coli
09/23/23 09:07 - Final
Feces/Stool Negative for Norovirus GI and GII.
09/23/23 04:12 C. difficile GDH Antigen & Toxins - Final
Feces/Stool Negative for toxigenic C.difficile
Wound/abscess/other Cult Final 09/23/23
Moderate Escherichia coli of two morphotypes
Moderate Viridans Streptococcus Group
Penicillin G or V with or without Gentamicin is the drug of
choice for treating Viridans Streptococcus Group. Please
notify the Microbiology Laboratory within 72 hours if
additional testing is needed.
Organism 1 Escherichia coli
1. Escherichia coli
M.I.C. RX
--------- ---
Amoxicillin/Potas. Clavulanate <=8/4 S
Ampicillin <=8 S
Ampicillin/Sulbactam <=8/4 S
Cefazolin <=2 S
Ertapenem <=0.5 S
Ciprofloxacin <=0.25 S
Gentamicin <=4 S
Levofloxacin <=0.5 S
Meropenem <=1 S
Piperacillin/Tazobactam <=16 S
Tobramycin <=4 S
Trimethoprim/Sulfamethoxazole <=2/38 S
Imaging:
09/23/2023 CT abdomen/pelvis with IV and oral contrast: Abnormal fluid collection in the right paracolic cutter measuring 6.8 x 3.6 x 4.8 cm immediately lateral to the appendix and adjacent to the cecum. Although the appendix is within the limits of
normal in caliber there are some accompanying inflammatory changes. Findings are suspicious for confined/contained perforated appendicitis or inflammatory/infectious process of the adjacent cecum such as perforated diverticulitis. No free air.
Likely accompanying small bowel ileus. Prior cholecystectomy.
--- NOTE | 2023-10-02 13:50 | W.PN.HOSP.TC ---
Today's Communication/Plan
-
NPO post MN
for surgery in AM
replete K today
Assessment / Plan
Assessment / Plan
Assessment:
Contained perforated appendicitis with abscess--surgery taking to OR tomorrow 10/02 as WBC increasing and BP decreasing (holding BP meds)
- CT: Abnormal fluid collection in the right paracolic cutter measuring 6.8 x 3.6 x 4.8 cm immediately lateral to the appendix and adjacent to the cecum. Although the appendix is within the limits of normal in caliber there are some accompanying
inflammatory changes. Findings are suspicious for confined/contained perforated appendicitis or inflammatory/infectious process of the adjacent cecum such as perforated diverticulitis. No free air.
- s/p IRAD guided drainage 09/22; continues to have drainage/repeat CT scan performed 27 September slightly progressed free fluid in pelvis on the right and new on the left mild barium enhancement versus loculated fluid noted
-Surgery and in consultation with interventional radiology agreed to upper caliber and SARA drain now 8.5 [place]
- now with ecoli and viridans strep. ecoli is pansensitive. Asked infectious disease opinion regarding beta strep and possibly will need different antibiotics. ID following. Narrowed antibiotic to Unasyn
- pain control, anti-emetics
- diet: LRD
- GS following
WBC continues now trending down and as long as trend continues no surgical intervention recommended per general surgery
hypokalemia--replete
E. Coli UTI
- continue IV Unasyn which is on for appendeceal abscess. from UTI standpoint she finished treatment
Acute hypoxic respiratory insufficiency likely secondary to atelectasis
continue with IS
Mild hyponatremia
monitor
Suspect renal insufficiency
- reviewed previous 1 years worth of labs on her portal, baseline Cr 1.1
- hold nephrotoxic agents (chlorthalidone, benazepril)
Muscle soreness of sternocleidomastoid secondary to lifting
- Muscle is sore and tender to palpation
- Doubt rotator cuff injury
- prn Tylenol
- s/p 1 dose Toradol in ER; hold further NSAIDs
- continue heat pad
Essential hypertension
- continue amlodipine with parameters
- continue atenolol with parameters
Hypercholesterolemia
- continue statin
Type 2 diabetes
- diet controlled
- holding Mounjaro
Hypothyroidism
- continue levothyroxine
Anxiety/depression
- continue Xanax
- continue paroxetine
Hypokalemia
- replete as needed
Obesity
DVT ppx: SC heparin
Code: Full
Anticipated Discharge: > 48 hours
Subjective/Interval History
-
Date of Service: October 02, 2023
pt waiting for surgery tomorrow
Objective Data
-
Labs:
Laboratory Results
10/02/23
06:16
WBC 22.6 H
Hgb 12.1
Hct 37.1
Plt Count 677 H
Sodium 135
Potassium 2.9 L
Chloride 99
Carbon Dioxide 27
BUN 9
Creatinine 0.7
Glucose 98
Calcium 8.3 L
Total Bilirubin 0.3
AST 19
ALT < 10
Alkaline Phosphatase 122
Vital Signs:
max temp for 24 hours
10/02/23
07:00
Temp 99 F
Vital Signs
Temp Pulse Resp BP Pulse Ox
99 F 70 18 96/58 94
10/02/23 07:00 10/02/23 08:59 10/02/23 07:00 10/02/23 12:37 10/02/23 07:00
I&O
10/01/23 10/02/23 10/03/23
06:59 06:59 06:59
Intake Total 1570 / 1570 490 / 490 490 / 490
Output Total 20 / 20 5 / 5
Balance 1550 / 1550 485 / 485 490 / 490
Review of Systems
-
All other systems: Reviewed and negative
Physical Exam
-
General: Well Developed, Well Nourished, No Apparent Distress and Morbidly Obese
HEENT: Normocephalic and Atraumatic
Respiratory: Clear to Auscultation; Negative Wheezes or Rhonchi
Cardiac: Regular Rhythm and S1/S2; Negative Murmur
GI: Soft, Nontender and Nondistended; Negative Normal Bowel Sounds (hypoactive bowel sounds)
Musculoskeletal: No Clubbing, No Cyanosis and No Edema
Skin: Warm
Neuro: Awake
[2023-10-02] MEDS: KCL 40 MEQ PO (13:56)
[2023-10-02] MEDS: NSS 1000 IV (14:55)
[2023-10-02 15:00] VITALS: BP 102/66
[2023-10-02 16:42] LABS: Potassium 3.3 mmol/L (3.5-5.1)
[2023-10-02] MEDS: XANAX 0.25 MG PO (21:26)
[2023-10-02 23:45] VITALS: BP 105/53
[2023-10-03] VITALS (10 sets, daily range): BP systolic 13–112; BP diastolic 52–64
[2023-10-03] MEDS: SYNTHROID 150 MCG PO (05:08)
[2023-10-03] MEDS: UNASYN IV ×3 (05:25→18:45)
[2023-10-03] MEDS: NSS 1000 IV (05:43)
[2023-10-03 08:11] LABS: % Basophils 0.3 % (0-2); % Eosinophils 0.5 % (0-6); % Immature Granulocytes 3.5 % (0-0.5); % Lymphocytes 7.3 % (20.5-51.1); % Monocytes 5.3 % (1.7-9.3); % Neutrophils 83.1 % (42.2-75.2); Absolute Basophils 0.1 10^3/uL (0-0.2); Absolute Eosinophils 0.1 10^3/uL (0-0.7); Absolute Immature Granulocytes 0.7 10^3/uL (0-0.05); Absolute Lymphocytes 1.6 10^3/uL (1.2-3.4); Absolute Monocytes 1.1 10^3/uL (0.1-0.6); Absolute Neutrophils 17.7 10^3/uL (1.4-6.5); Hematocrit 34.9 % (37.0-47.0); Hemoglobin 11.3 g/dL (12.0-16.0); Mean Corp Hgb Conc. 32.4 g/dL (33.0-37.0); Mean Corpuscular Hgb 28.3 pg (27.0-31.0); Mean Corpuscular Volume 87.5 fL (81.0-99.0); Mean Platelet Volume 9.3 fL (7.4-10.4); Nucleated Red Blood Cells % 0 %; Platelet Count 764 10^3/uL (130-400); Red Blood Cell Count 3.99 10^6/uL (4.20-5.40); Red Cell Dist. Width 13.3 % (11.5-14.5); White Blood Cell Count 21.3 10^3/uL (4.8-10.8)
[2023-10-03 08:37] LABS: Blood Urea Nitrogen 9 mg/dl (7-17); Calcium 8.5 mg/dl (8.4-10.2); Carbon Dioxide 24 mmol/L (22-30); Chloride 102 mmol/L (98-107); Estimated Creatinine Clearance 103 ml/min; Glucose 82 mg/dl (70-99); Magnesium 1.7 mg/dl (1.6-2.3); Potassium 3.6 mmol/L (3.5-5.1); Sodium 136 mmol/L (135-145); eGFR > 60.00
[2023-10-03] MEDS: HEPARIN SC (09:06)
[2023-10-03] MEDS: PAXIL 40 MG PO (09:06)
[2023-10-03] MEDS: LIPITOR 10 MG PO (09:07)
[2023-10-03] MEDS: NORVASC PO (09:07)
[2023-10-03] MEDS: TENORMIN PO (09:07)
[2023-10-03] MEDS: VISBIOME 1 CAP PO (09:08)
--- NOTE | 2023-10-03 10:06 | W.PN.GS2 ---
Addendum entered and electronically signed by Gordo Medina MD 10/03/23 10:42:
Patient seen and examined. Agree with assessment plan as documented below.
No complaints. Abdominal exam benign.
Smoldering issues with perforated appendicitis. Persistent the elevated WBC. Likely related to pelvic and left lower quadrant fluid collections.
Discussed options of repeat CT scan with further IR drainage procedures versus proceeding with surgical intervention. Pros and cons of both approaches was discussed. Specifically, we discussed continued failure of nonoperative management to
control her infection and further delays and need for hospitalization versus surgical risks of bowel injury or inability to perform appendectomy. Patient would like to proceed with surgical intervention.
Plan for a laparoscopic appendectomy, possible exploratory laparotomy. The procedure itself, as well as the risks, benefits, and alternatives was discussed. Specifically, we discussed the risks of bleeding, infection, injury to surrounding
structures (bowel), staple line leak, persistent infectious issues, general anesthetic complications. Typical postprocedural coverage was discussed. All questions answered. Consent signed.
-- Laparoscopic appendectomy possible exploratory laparotomy
-- NPO, IVF
-- Antibiotics: Zosyn
Original Note:
Today's Communication / Plan
-
OR today
Assessment / Plan
-
Assessment: 62 yo female with a h/o open cholecystectomy, DM and hypothyroid who presented with mid abdominal abdominal pain on 09/21/23. Initial CT read as relatively benign. UTI noted and antibiotics were initiated on presentation. She was not
improving clinically. WBC noted to be rising with no improvement/worsening in pain and thus repeat imaging was preformed with findings consistent with perforated appendicitis with abscess prompting subsequent surgical consultation.
s/p IR drain placement on 09/22
Urine cx +ecoli, Drain cx +ecoli and strep viridans. Blood cx NG
Rpt CT 09/27 with partially undrained RUQ collection and some new collections that are small and not amenable to drainage, and pelvic LUQ collections
s/p IR drain exchange on 09/28
Persistent Leukocytosis, afebrile, VSS
Plan:
-- NPO for OR today
-- Continue IV antibiotics
-- Medical management as per primary team
Subjective Data
-
Date of Service: October 03, 2023
Patient seen and examined at bedside with Dr. Medina. Denies n/v. No acute changes/worsening symptoms.
Objective Data
-
Intake and Output
10/02/23 10/03/23 10/04/23
06:59 06:59 06:59
Intake Total 490 / 490 1929
Output Total
Balance 485 / 485 1909
Intake:
Oral fluids 480 / 480 1919
Amount instilled into Drain (
Total)
Right Lower Abdomen
Output:
Drain Output (Total)
Right Lower Abdomen
Other:
Number of approximated MODERATE 3 3
amounts of urine
Vital Signs
Temp Pulse Resp BP Pulse Ox
98.7 F 66 18 94/57 94
10/03/23 07:10 10/03/23 07:10 10/03/23 07:10 10/03/23 09:07 10/03/23 07:10
Lab Results
10/03/23 06:58
10/03/23 06:58
Calcium 8.5 mg/dl (8.4-10.2) 10/03/23 06:58
Magnesium 1.7 mg/dl (1.6-2.3) 10/03/23 06:58
Total Bilirubin 0.3 mg/dl (0.2-1.3) 10/02/23 06:16
Direct Bilirubin 0.3 mg/dl (0.0-0.4) 09/23/23 05:21
AST 19 U/L (14-36) 10/02/23 06:16
ALT < 10 U/L (0-35) 10/02/23 06:16
Alkaline Phosphatase 122 U/L (38-126) 10/02/23 06:16
Total Protein 6.0 g/dl (6.3-8.2) L 10/02/23 06:16
Albumin 2.8 g/dl (3.5-5.0) L 10/02/23 06:16
Physical Exam
-
Gen: NAD
Abd: obese, soft, minimal tenderness, ND, non-peritoneal, IR drain with serous output
--- NOTE | 2023-10-03 13:54 | W.PN.ID1 ---
Date of Service
Date of Service: October 03, 2023
Today's Communication
Continue Unasyn 3 g IV every 6 hours. (d#11 abx)
Assessment / Plan
Appendiceal abscess
Leukocytosis
- Up today
Thrombocytosis
RYLEY; improved
HTN
Dyslipidemia
DM
Renal insufficiency
Hypothyroidism
Anxiety
Recommendations:
Continue Unasyn 3 g IV every 6 hours. (d#11 abx)
Continue to monitor white count and temperature curve.
For tentative surgery today. Would check intraoperative cultures if possible.
Antibiotic regimen modification following surgery if necessary.
����������������������������������������������������������
Chief Complaint
-: Leukocytosis and Other (Abdominal/appendiceal abscess.)
Subjective / Review of Systems
Review of Systems: No Fever and No Chills
Vital Signs / Physical Exam
Vital Signs
Vital Signs
Temp Pulse Resp BP Pulse Ox
98.7 F 66 18 94/57 94
10/03/23 07:10 10/03/23 07:10 10/03/23 07:10 10/03/23 09:07 10/03/23 07:10
Physical Exam
Constitutional: No Acute Distress, Comfortable, Non-toxic and Obese
Head: Normocephalic
Eyes: Sclera Anicteric
Cardiovascular: S1/S2; Negative S3/S4
Pulmonary: Clear and Non Labored
Gastrointestinal: Soft, Non Distended and Other (SARA in place.)
Genito-Urinary: Negative Worthy
Neurological: Awake and Alert
Psychological: Calm
Objective Data
Lab Data
Lab Results
10/03/23 06:58
10/03/23 06:58
Estimated Creat Clear 103 ml/min 10/03/23 06:58
Lactic Acid Cancelled 09/21/23 21:27
Total Bilirubin 0.3 mg/dl (0.2-1.3) 10/02/23 06:16
AST 19 U/L (14-36) 10/02/23 06:16
ALT < 10 U/L (0-35) 10/02/23 06:16
Alkaline Phosphatase 122 U/L (38-126) 10/02/23 06:16
Most recent labs reviewed.
Micro Results:
09/23/23 20:16 Wound Culture - Final
Abdomen Escherichia coli
Viridans Streptococcus Group
Gram Stain - Final
09/21/23 23:25 Blood Culture - Final
Blood/Venous No Growth - Final Report
09/21/23 23:11 Blood Culture - Final
Blood/Venous No Growth - Final Report
09/23/23 09:07 Salmonella/Shigella Culture - Final
Feces/Stool No Salmonella, Shigella, Aeromonas or Plesiomonas species
isolated.
Campylobacter Culture - Final
No Campylobacter species isolated.
Shiga Toxin Test - Final
No E. coli Shiga Toxin 1 or 2 detected.
Stool Leukocytes - Final
09/21/23 21:38 Urine Culture - Final
Urine Escherichia coli
09/23/23 09:07 - Final
Feces/Stool Negative for Norovirus GI and GII.
09/23/23 04:12 C. difficile GDH Antigen & Toxins - Final
Feces/Stool Negative for toxigenic C.difficile
Wound/abscess/other Cult Final 09/23/23
Moderate Escherichia coli of two morphotypes
Moderate Viridans Streptococcus Group
Penicillin G or V with or without Gentamicin is the drug of
choice for treating Viridans Streptococcus Group. Please
notify the Microbiology Laboratory within 72 hours if
additional testing is needed.
Organism 1 Escherichia coli
1. Escherichia coli
M.I.C. RX
--------- ---
Amoxicillin/Potas. Clavulanate <=8/4 S
Ampicillin <=8 S
Ampicillin/Sulbactam <=8/4 S
Cefazolin <=2 S
Ertapenem <=0.5 S
Ciprofloxacin <=0.25 S
Gentamicin <=4 S
Levofloxacin <=0.5 S
Meropenem <=1 S
Piperacillin/Tazobactam <=16 S
Tobramycin <=4 S
Trimethoprim/Sulfamethoxazole <=2/38 S
Imaging:
09/23/2023 CT abdomen/pelvis with IV and oral contrast: Abnormal fluid collection in the right paracolic cutter measuring 6.8 x 3.6 x 4.8 cm immediately lateral to the appendix and adjacent to the cecum. Although the appendix is within the limits of
normal in caliber there are some accompanying inflammatory changes. Findings are suspicious for confined/contained perforated appendicitis or inflammatory/infectious process of the adjacent cecum such as perforated diverticulitis. No free air.
Likely accompanying small bowel ileus. Prior cholecystectomy.
--- NOTE | 2023-10-03 15:12 | CM ---
Attempted to meet with Ernesto today, however she is in the OR at this time.
Case Management will continue to follow to facilitate discharge and arrange any services needed.
--- NOTE | 2023-10-03 17:10 | W.IMMPOSTOP ---
Addendum entered and electronically signed by Gordo Medina MD 10/18/23 09:42:
[facility]#[id number]
Original Note:
Surgical Immed Post Op Note
-
Primary Surgeon: Carol
Assisting Surgeon: ANTONELLA Mcgarry
Pre-op Diagnosis: Perforated appendicitis
Post-op Diagnosis: Perforated appendicitis
Procedure Performed: Laparoscopic hand-assisted washout and drainage of intra-abdominal abscess
Anesthesia Type: General
Specimen / Cultures: None
Estimated Blood Loss: 101 cc
Complications: None
Operative Findings:
1. Dense adhesions of small bowel and omentum
2. Abscess pockets of LLQ, pelvis and RLQ broken up and drained
3. 19 Fr Benjamin drain x2 into abdomen (LLQ into pelvis, suprapubic into RLQ)
--- NOTE | 2023-10-03 17:44 | PTCARENOTE ---
right nare NGT to low intermittent suction, tube placement verified, no drainage noted.
[2023-10-03] MEDS: DILAUDID 0.5 MG IV (18:03)
--- NOTE | 2023-10-03 18:15 | W.PN.HOSP.TC ---
Today's Communication/Plan
-
OR
Status post laparoscopic washout of adhesion lesions.
NG tube in place.
Bilateral SARA drains in place
Continue IV antibiotics
Assessment / Plan
Assessment / Plan
Assessment:
Contained perforated appendicitis with abscess
- CT: Abnormal fluid collection in the right paracolic cutter measuring 6.8 x 3.6 x 4.8 cm immediately lateral to the appendix and adjacent to the cecum. Although the appendix is within the limits of normal in caliber there are some accompanying
inflammatory changes. Findings are suspicious for confined/contained perforated appendicitis or inflammatory/infectious process of the adjacent cecum such as perforated diverticulitis. No free air.
- s/p IRAD guided drainage 09/22; continues to have drainage/repeat CT scan performed 27 September slightly progressed free fluid in pelvis on the right and new on the left mild barium enhancement versus loculated fluid noted
-Surgery and in consultation with interventional radiology agreed to upper caliber and SARA drain now 8.5 [place]
- now with ecoli and viridans strep. ecoli is pansensitive. Asked infectious disease opinion regarding beta strep and possibly will need different antibiotics. ID following. Narrowed antibiotic to Unasyn
-Given smoldering clinical process with persistent drainage, as well as leukocytosis, decision made for surgical intervention.
� 10/02. Status post laparoscopic washout and drainage of intra-abdominal abscess with intraoperative finding including dense adhesions of small bowel and omentum, abscess pockets of the left lower quadrant, pelvis, right lower quadrant were broken
up and drained. 19 [place] Benjamin drain x 2 into the abdomen left lower quadrant into the pelvis and suprapubic and right lower quadrant.
E. Coli UTI
- continue IV Unasyn which is on for appendeceal abscess. from UTI standpoint she finished treatment
Acute hypoxic respiratory insufficiency likely secondary to atelectasis
continue with IS
Mild hyponatremia
monitor
Suspect renal insufficiency
- reviewed previous 1 years worth of labs on her portal, baseline Cr 1.1
- hold nephrotoxic agents (chlorthalidone, benazepril)
Essential hypertension
- continue amlodipine with parameters
- continue atenolol with parameters
Hypercholesterolemia
- continue statin
Type 2 diabetes
- diet controlled
- holding Mounjaro
Hypothyroidism
- continue levothyroxine
Anxiety/depression
- continue Xanax
- continue paroxetine
Hypokalemia
- replete as needed
Obesity
DVT ppx: SC heparin
Code: Full
Anticipated Discharge: > 48 hours
Subjective/Interval History
-
Date of Service: October 03, 2023
Objective Data
-
Labs:
Laboratory Results
10/03/23
06:58
WBC 21.3 H
Hgb 11.3 L
Hct 34.9 L
Plt Count 764 H
Sodium 136
Potassium 3.6
Chloride 102
Carbon Dioxide 24
BUN 9
Creatinine 0.7
Glucose 82
Calcium 8.5
Vital Signs:
Vital Signs
Temp Pulse Resp BP Pulse Ox
98.5 F 79 15 102/63 93
10/03/23 17:30 10/03/23 18:00 10/03/23 18:00 10/03/23 18:00 10/03/23 18:00
I&O
10/02/23 10/03/23 10/04/23
06:59 06:59 06:59
Intake Total 490 / 490 1929
Output Total 5 / 5 20 / 20 95 / 95
Balance 485 / 485 1909 -85 / -85
Physical Exam
-
General: Well Developed and No Apparent Distress
HEENT: Normocephalic, Atraumatic and Moist Mucous Membranes
Respiratory: Clear to Auscultation
Cardiac: Regular Rhythm and S1/S2; Negative Murmur, Rub or Gallop
GI: Soft, Nontender, Nondistended, Normal Bowel Sounds and Other (BL SARA drains); Negative Organomegaly
Rectal: Deferred by Provider
Genito-urinary: Worthy
Musculoskeletal: No Clubbing, No Cyanosis and No Edema
Skin: Negative Rash
Neuro: Awake, Alert, Oriented and Nonfocal/Grossly Intact
--- NOTE | 2023-10-03 18:40 | PTCARENOTE ---
received patient from PACU in bed. awake and alert but drowsy. reporting pain at acceptable level. Abdomen obese with no bowel sounds heard. NG tube in right nare with small amount of light green fluid. abdomen with right and left SARA's present
with bloody drainage. midabdomen with aquacell dressing dry and intact. funes patent and draining clear yellow urine. call abebe in reach. plan of care on going.
[2023-10-03] MEDS: HEPARIN 5000 UNITS SC (20:15)
[2023-10-04] MEDS: UNASYN IV ×2 (00:10→05:59)
[2023-10-04 02:59] VITALS: BP 107/58
[2023-10-04] MEDS: DILAUDID 0.5 MG IV ×3 (05:07→19:55)
[2023-10-04] MEDS: NSS 1000 IV ×2 (05:11→15:09)
[2023-10-04] MEDS: SYNTHROID PO (06:01)
[2023-10-04 07:55] VITALS: BP 105/59
[2023-10-04] MEDS: HEPARIN 5000 UNITS SC (08:48)
[2023-10-04 08:53] LABS: Hematocrit 37.2 % (37.0-47.0); Hemoglobin 11.5 g/dL (12.0-16.0); Mean Corp Hgb Conc. 30.9 g/dL (33.0-37.0); Mean Corpuscular Hgb 28.6 pg (27.0-31.0); Mean Corpuscular Volume 92.5 fL (81.0-99.0); Mean Platelet Volume 9.1 fL (7.4-10.4); Platelet Count 867 10^3/uL (130-400); Red Blood Cell Count 4.02 10^6/uL (4.20-5.40); Red Cell Dist. Width 13.3 % (11.5-14.5); White Blood Cell Count 23.9 10^3/uL (4.8-10.8)
[2023-10-04 09:35] LABS: Blood Urea Nitrogen 12 mg/dl (7-17); Calcium 8.7 mg/dl (8.4-10.2); Carbon Dioxide 26 mmol/L (22-30); Chloride 104 mmol/L (98-107); Estimated Creatinine Clearance 91 ml/min; Glucose 103 mg/dl (70-99); Potassium 4.9 mmol/L (3.5-5.1); Sodium 140 mmol/L (135-145); eGFR > 60.00
--- NOTE | 2023-10-04 10:07 | W.PN.GS2 ---
Today's Communication / Plan
-
-- NPO, IVF
-- NGT to suction
-- Pain: Tylenol, Toradol, IV Dilaudid PRN
-- Abx: Zosyn, ID on board
-- OOB/ambualte as able
-- DVT: switched to Lovenox as SQH BID likely subtherapeutic
-- GI PPI while NGT
-- Transition PO meds to IV with NGT in place
Assessment / Plan
-
Assessment: 62 yo female with a h/o open cholecystectomy, DM and hypothyroid who presented with mid abdominal abdominal pain on 09/21/23. Initial CT read as relatively benign. UTI noted and antibiotics were initiated on presentation. She was not
improving clinically. WBC noted to be rising with no improvement/worsening in pain and thus repeat imaging was preformed with findings consistent with perforated appendicitis with abscess prompting subsequent surgical consultation.
s/p IR drain placement on 09/22
Urine cx +ecoli, Drain cx +ecoli and strep viridans. Blood cx NG
Rpt CT 09/27 with partially undrained RUQ collection and some new collections that are small and not amenable to drainage, and pelvic LUQ collections
s/p IR drain exchange on 09/28
POD#1 s/p laparoscopic (hand assisted abdominal washout with drain placement
Recovering well. No postoperative concerns. Would expect delayed recovery of bowel function.
Plan:
-- NPO, IVF
-- NGT to suction
-- Pain: Tylenol, Toradol, IV DIlaudid PRN
-- Abx: Zosyn, ID on board
-- OOB/ambualte as able
-- DVT: switched to Lovenox as SQH BID likely subtherapeutic
-- GI PPI while NGT
Subjective Data
-
Date of Service: October 04, 2023
No major complaints. No nausea or vomiting. No flatus or BM. Afebrile.
Objective Data
-
Intake and Output
10/03/23 10/04/23 10/05/23
06:59 06:59 06:59
Intake Total 1929 1070 / 1070
Output Total 860 / 860
Balance 1909 210 / 210
Intake:
Oral fluids 1919 0 / 0
IV fluids (Total) 820 / 820
normosol 100 / 100
IV piggybacks 240 / 240
Amount instilled into Drain (
Total)
Right Lower Abdomen
Amount instilled into GI Tube ( 0 0
Total)
[place] Sump 0 0
Output:
Emesis 225 / 225
Drain Output (Total) 135 / 135
Left Middle Abdomen Suleiman- 92 / 92
Nguyen B
Right Lower Abdomen
Right Lower Abdomen Suleiman- 43 / 43
Nguyen A
Urine, Worthy 500 / 500
Other:
Number of approximated MODERATE 3
amounts of urine
Vital Signs
Temp Pulse Resp BP Pulse Ox
97.6 F 65 20 105/59 94
10/04/23 07:55 10/04/23 07:55 10/04/23 07:55 10/04/23 07:55 10/04/23 07:55
Lab Results
10/04/23 07:57
10/04/23 07:57
Calcium 8.7 mg/dl (8.4-10.2) 10/04/23 07:57
Magnesium 1.7 mg/dl (1.6-2.3) 10/03/23 06:58
Total Bilirubin 0.3 mg/dl (0.2-1.3) 10/02/23 06:16
Direct Bilirubin 0.3 mg/dl (0.0-0.4) 09/23/23 05:21
AST 19 U/L (14-36) 10/02/23 06:16
ALT < 10 U/L (0-35) 10/02/23 06:16
Alkaline Phosphatase 122 U/L (38-126) 10/02/23 06:16
Total Protein 6.0 g/dl (6.3-8.2) L 10/02/23 06:16
Albumin 2.8 g/dl (3.5-5.0) L 10/02/23 06:16
Physical Exam
-
Gen: NAD
HEENT: NGT with light bilious
Abd: soft, obese, appropriately tender, ND, non-peritoneal, dressings c/d/i, JPs with old blood
--- NOTE | 2023-10-04 10:38 | PN.CDI ---
CDI
- -
CDI:
Physician Documentation Request
Admit Date: 09/22/23 10:24
Dear Doctor Victor M,
09/25 general surgeon note states 'Her abdomen is still slightly distended, expected ileus in setting of a intra-abdominal abscess and sepsis on admission.'
Patient was changed from observation status to admission on 09/21 at 10:24.
patient has remained afebrile
09/21 Heart rate 87-117
respiratory rate 16-22
WBC as follows:
Laboratory Tests
09/22/23 09/23/23
04:59 05:21
WBC 28.2 H 31.6 H
Please clarify the following:
Sepsis was present on admission
Sepsis was not present on admission
Unable to determine
Use of terms such as suspected, likely, concern for, or probable (associated with a specific diagnosis that is being evaluated, monitored, or treated as if it exists) are acceptable and can be coded in the inpatient setting, when documented at the
time of discharge.
Thank you,
Jennifer Varma RN, BSN
CDI Specialist
tiger text
Please use your independent medical judgment in providing your response.
[2023-10-04] MEDS: PROTONIX IV 40 MG IV (11:02)
[2023-10-04] MEDS: NSS (PRESERVATIVE FREE) 10 ML IV (11:03)
[2023-10-04] MEDS: ZOSYN 50 IV ×3 (11:04→23:44)
[2023-10-04 11:55] VITALS: BP 111/53
[2023-10-04] MEDS: LIPITOR PO (15:00)
[2023-10-04] MEDS: NORVASC PO (15:00)
[2023-10-04] MEDS: PAXIL PO (15:00)
[2023-10-04] MEDS: VISBIOME PO (15:01)
[2023-10-04] MEDS: TENORMIN PO (15:01)
--- NOTE | 2023-10-04 15:23 | W.PN.ID1 ---
Date of Service
Date of Service: October 04, 2023
Today's Communication
Continue Unasyn 3 g IV every 6 hours. (d#12 abx)
Assessment / Plan
Appendiceal abscess
Leukocytosis
Thrombocytosis
RYLEY; improved
HTN
Dyslipidemia
DM
Renal insufficiency
Hypothyroidism
Anxiety
Recommendations:
Continue Unasyn 3 g IV every 6 hours. (d#12 abx)
Continue to monitor white count and temperature curve.
����������������������������������������������������������
Chief Complaint
-: Leukocytosis and Other (Abdominal/appendiceal abscess.)
Subjective / Review of Systems
Patient seen and examined. S/p laparoscopic hand-assisted washout and drainage of intra-abdominal abscesses yesterday. Overall feels well at present today.
Vital Signs / Physical Exam
Vital Signs
Vital Signs
Temp Pulse Resp BP Pulse Ox
98.2 F 61 18 111/53 93
10/04/23 11:55 10/04/23 11:55 10/04/23 11:55 10/04/23 11:55 10/04/23 11:55
Physical Exam
Constitutional: No Acute Distress, Comfortable, Non-toxic and Obese
Head: Normocephalic
Eyes: Sclera Anicteric
Cardiovascular: S1/S2; Negative S3/S4
Pulmonary: Clear and Non Labored
Gastrointestinal: Soft, Non Distended and Other (Multiple JPs in place.)
Genito-Urinary: Negative Worthy
Skin: Negative Rash or Jaundice
Neurological: Awake and Alert
Psychological: Calm
Objective Data
Lab Data
Lab Results
10/04/23 07:57
10/04/23 07:57
Estimated Creat Clear 91 ml/min 10/04/23 07:57
Lactic Acid Cancelled 09/21/23 21:27
Total Bilirubin 0.3 mg/dl (0.2-1.3) 10/02/23 06:16
AST 19 U/L (14-36) 10/02/23 06:16
ALT < 10 U/L (0-35) 10/02/23 06:16
Alkaline Phosphatase 122 U/L (38-126) 10/02/23 06:16
Most recent labs reviewed.
Micro Results:
09/23/23 20:16 Wound Culture - Final
Abdomen Escherichia coli
Viridans Streptococcus Group
Gram Stain - Final
09/21/23 23:25 Blood Culture - Final
Blood/Venous No Growth - Final Report
09/21/23 23:11 Blood Culture - Final
Blood/Venous No Growth - Final Report
09/23/23 09:07 Salmonella/Shigella Culture - Final
Feces/Stool No Salmonella, Shigella, Aeromonas or Plesiomonas species
isolated.
Campylobacter Culture - Final
No Campylobacter species isolated.
Shiga Toxin Test - Final
No E. coli Shiga Toxin 1 or 2 detected.
Stool Leukocytes - Final
09/21/23 21:38 Urine Culture - Final
Urine Escherichia coli
09/23/23 09:07 - Final
Feces/Stool Negative for Norovirus GI and GII.
09/23/23 04:12 C. difficile GDH Antigen & Toxins - Final
Feces/Stool Negative for toxigenic C.difficile
Wound/abscess/other Cult Final 09/23/23
Moderate Escherichia coli of two morphotypes
Moderate Viridans Streptococcus Group
Penicillin G or V with or without Gentamicin is the drug of
choice for treating Viridans Streptococcus Group. Please
notify the Microbiology Laboratory within 72 hours if
additional testing is needed.
Organism 1 Escherichia coli
1. Escherichia coli
M.I.C. RX
--------- ---
Amoxicillin/Potas. Clavulanate <=8/4 S
Ampicillin <=8 S
Ampicillin/Sulbactam <=8/4 S
Cefazolin <=2 S
Ertapenem <=0.5 S
Ciprofloxacin <=0.25 S
Gentamicin <=4 S
Levofloxacin <=0.5 S
Meropenem <=1 S
Piperacillin/Tazobactam <=16 S
Tobramycin <=4 S
Trimethoprim/Sulfamethoxazole <=2/38 S
Imaging:
09/23/2023 CT abdomen/pelvis with IV and oral contrast: Abnormal fluid collection in the right paracolic cutter measuring 6.8 x 3.6 x 4.8 cm immediately lateral to the appendix and adjacent to the cecum. Although the appendix is within the limits of
normal in caliber there are some accompanying inflammatory changes. Findings are suspicious for confined/contained perforated appendicitis or inflammatory/infectious process of the adjacent cecum such as perforated diverticulitis. No free air.
Likely accompanying small bowel ileus. Prior cholecystectomy.
--- NOTE | 2023-10-04 15:52 | CM ---
I met with Ernesto today; was in OR yesterday and is already feeling better since the abscess was surgically removed along with a wash out. She has NGT at this time. She is looking forward to returning home.
Plan: Discharge home with no needs.
[2023-10-04 15:55] VITALS: BP 112/66
--- NOTE | 2023-10-04 16:40 | W.PN.HOSP.TC ---
Today's Communication/Plan
-
IV antibiotics
Bilateral SARA drain and NG tube in place.
Transition off oral medications while n.p.o. including antihypertensive regimen and Levothyroid supplementation
Assessment / Plan
Assessment / Plan
Assessment:
Contained perforated appendicitis with abscess
- CT: Abnormal fluid collection in the right paracolic cutter measuring 6.8 x 3.6 x 4.8 cm immediately lateral to the appendix and adjacent to the cecum. Although the appendix is within the limits of normal in caliber there are some accompanying
inflammatory changes. Findings are suspicious for confined/contained perforated appendicitis or inflammatory/infectious process of the adjacent cecum such as perforated diverticulitis. No free air.
- s/p IRAD guided drainage 09/22; continues to have drainage/repeat CT scan performed 27 September slightly progressed free fluid in pelvis on the right and new on the left mild barium enhancement versus loculated fluid noted
-Surgery and in consultation with interventional radiology agreed to upper caliber and SARA drain now 8.5 [place]
- now with ecoli and viridans strep. ecoli is pansensitive. Asked infectious disease opinion regarding beta strep and possibly will need different antibiotics. ID following. Narrowed antibiotic to Unasyn
-Given smoldering clinical process with persistent drainage, as well as leukocytosis, decision made for surgical intervention.
� 10/02. Status post laparoscopic washout and drainage of intra-abdominal abscess with intraoperative finding including dense adhesions of small bowel and omentum, abscess pockets of the left lower quadrant, pelvis, right lower quadrant were broken
up and drained. 19 [place] Benjamin drain x 2 into the abdomen left lower quadrant into the pelvis and suprapubic and right lower quadrant.
E. Coli UTI
- continue IV Unasyn which is on for appendeceal abscess. from UTI standpoint she finished treatment
Acute hypoxic respiratory insufficiency likely secondary to atelectasis
continue with IS
Mild hyponatremia
monitor
Suspect renal insufficiency
- reviewed previous 1 years worth of labs on her portal, baseline Cr 1.1
- hold nephrotoxic agents (chlorthalidone, benazepril)
Essential hypertension
- continue amlodipine with parameters
- continue atenolol with parameters
Hypercholesterolemia
- continue statin
Type 2 diabetes
- diet controlled
- holding Mounjaro
Hypothyroidism
- continue levothyroxine
Anxiety/depression
- continue Xanax
- continue paroxetine
Hypokalemia
- replete as needed
Obesity
DVT ppx: SC heparin
Code: Full
Anticipated Discharge: > 48 hours
Subjective/Interval History
-
Date of Service: October 04, 2023
Objective Data
-
Labs:
Laboratory Results
10/04/23
07:57
WBC 23.9 H
Hgb 11.5 L
Hct 37.2
Plt Count 867 H
Sodium 140
Potassium 4.9 D
Chloride 104
Carbon Dioxide 26
BUN 12
Creatinine 0.8
Glucose 103 H
Calcium 8.7
Vital Signs:
Vital Signs
Temp Pulse Resp BP Pulse Ox
98.5 F 64 20 112/66 95
10/04/23 15:55 10/04/23 15:55 10/04/23 15:55 10/04/23 15:55 10/04/23 15:55
I&O
10/03/23 10/04/23 10/05/23
06:59 06:59 06:59
Intake Total 1929 1070 / 1070
Output Total 860 / 860
Balance 1909 210 / 210
Physical Exam
-
General: Well Developed and No Apparent Distress
HEENT: Normocephalic, Atraumatic and Moist Mucous Membranes
Respiratory: Clear to Auscultation
Cardiac: Regular Rhythm and S1/S2; Negative Murmur, Rub or Gallop
GI: Soft, Nontender, Nondistended and Other (NG tube in place with biliary drain. Bilateral lower quadrant SARA drains in place.); Negative Organomegaly
Rectal: Deferred by Provider
Genito-urinary: Worthy
Musculoskeletal: No Clubbing, No Cyanosis and No Edema
Skin: Negative Rash
Neuro: Awake, Alert, Oriented and Nonfocal/Grossly Intact
[2023-10-04] MEDS: LOPRESSOR 5 MG IV (17:54)
[2023-10-04] MEDS: LOVENOX 40 MG SC (17:54)
[2023-10-04] MEDS: LEVOTHROID 112.5 MCG IV (17:55)
[2023-10-04 19:55] VITALS: BP 110/59
[2023-10-04 23:42] VITALS: BP 112/61
[2023-10-04] MEDS: LOPRESSOR IV (23:44)
[2023-10-05] MEDS: NSS 1000 IV ×3 (01:23→23:33)
[2023-10-05] MEDS: DILAUDID 0.5 MG IV ×4 (01:24→21:36)
[2023-10-05 03:18] VITALS: BP 101/57
[2023-10-05] MEDS: ZOSYN 50 IV ×4 (05:36→23:59)
[2023-10-05] MEDS: LOPRESSOR 5 MG IV ×2 (05:36→12:16)
[2023-10-05 05:53] LABS: % Basophils 0.3 % (0-2); % Eosinophils 0.3 % (0-6); % Immature Granulocytes 1.5 % (0-0.5); % Lymphocytes 9.1 % (20.5-51.1); % Monocytes 7.4 % (1.7-9.3); % Neutrophils 81.4 % (42.2-75.2); Absolute Basophils 0.1 10^3/uL (0-0.2); Absolute Eosinophils 0.1 10^3/uL (0-0.7); Absolute Immature Granulocytes 0.3 10^3/uL (0-0.05); Absolute Lymphocytes 1.9 10^3/uL (1.2-3.4); Absolute Monocytes 1.5 10^3/uL (0.1-0.6); Absolute Neutrophils 16.6 10^3/uL (1.4-6.5); Hematocrit 33.6 % (37.0-47.0); Hemoglobin 10.6 g/dL (12.0-16.0); Mean Corp Hgb Conc. 31.5 g/dL (33.0-37.0); Mean Corpuscular Hgb 28.3 pg (27.0-31.0); Mean Corpuscular Volume 89.8 fL (81.0-99.0); Mean Platelet Volume 9.1 fL (7.4-10.4); Nucleated Red Blood Cells % 0 %; Platelet Count 894 10^3/uL (130-400); Red Blood Cell Count 3.74 10^6/uL (4.20-5.40); Red Cell Dist. Width 13.5 % (11.5-14.5); White Blood Cell Count 20.4 10^3/uL (4.8-10.8)
[2023-10-05 06:19] LABS: Blood Urea Nitrogen 13 mg/dl (7-17); Calcium 8.5 mg/dl (8.4-10.2); Carbon Dioxide 26 mmol/L (22-30); Chloride 107 mmol/L (98-107); Estimated Creatinine Clearance 80 ml/min; Glucose 83 mg/dl (70-99); Potassium 3.8 mmol/L (3.5-5.1); Sodium 141 mmol/L (135-145); eGFR > 60.00
[2023-10-05 07:00] VITALS: BP 119/65
[2023-10-05] MEDS: NSS (PRESERVATIVE FREE) 10 ML IV (08:39)
[2023-10-05] MEDS: PROTONIX IV 40 MG IV (08:39)
[2023-10-05] MEDS: VISBIOME PO (08:40)
--- NOTE | 2023-10-05 11:06 | W.PN.GS2 ---
Today's Communication / Plan
-
clamp trial
iv abx
Assessment / Plan
-
Assessment: 62 yo female with a h/o open cholecystectomy, DM and hypothyroid who presented with mid abdominal abdominal pain on 09/21/23. Initial CT read as relatively benign. UTI noted and antibiotics were initiated on presentation. She was not
improving clinically. WBC noted to be rising with no improvement/worsening in pain and thus repeat imaging was preformed with findings consistent with perforated appendicitis with abscess prompting subsequent surgical consultation.
s/p IR drain placement on 09/22
Urine cx +ecoli, Drain cx +ecoli and strep viridans. Blood cx NG
Rpt CT 09/27 with partially undrained RUQ collection and some new collections that are small and not amenable to drainage, and pelvic LUQ collections
s/p IR drain exchange on 09/28
POD#2 s/p laparoscopic (hand assisted abdominal washout with drain placement
Recovering well. No postoperative concerns. Potential for ileus, lack of flatus however she is hungry and denies n/v (with ngt to suction). NGT output masked by ice chips
Plan:
-- NPO, IVF
-- NGT clamp trial
-- Pain: Tylenol, Toradol, IV Dilaudid PRN
-- Abx: Zosyn, ID on board
-- OOB/ambualte as able
-- DVT: Lovenox
-- GI PPI while NGT
-- Ambulate
Subjective Data
-
Date of Service: October 05, 2023
AFVSS, feeling frustrated, pain controlled, hungry, denies n/v, denies flatus
Objective Data
-
Intake and Output
10/04/23 10/05/23 10/06/23
06:59 06:59 06:59
Intake Total 1070 / 1070 2380 / 2380
Output Total 860 / 860 959 / 959
Balance 210 / 210 1421 / 1421
Intake:
Oral fluids 0 / 0
IV fluids (Total) 820 / 820 1999 / 1999
normosol 100 / 100
IV piggybacks 240 / 240 200 / 200
Amount instilled into Drain ( 10 / 10
Total)
Right Lower Abdomen 10 / 10
Amount instilled into GI Tube ( 0 / 0 180 / 180
Total)
[place] Sump 0 / 0 180 / 180
Output:
Emesis 225 / 225
Drain Output (Total) 135 / 135 84 / 84
Left Middle Abdomen Suleiman- 92 / 92 46 / 46
Nguyen B
Right Lower Abdomen Suleiman- 43 / 43 38 / 38
Nguyen A
Gastrointestinal tube output ( 875 / 875
Total)
[place] Sump 875 / 875
Urine, Worthy 500 / 500
Other:
Number of approximated MODERATE 1
amounts of urine
Number of approximated LARGE 3
amounts of urine
Vital Signs
Temp Pulse Resp BP Pulse Ox
97.7 F 59 16 119/65 93
10/05/23 07:00 10/05/23 07:00 10/05/23 07:00 10/05/23 07:00 10/05/23 08:00
Lab Results
10/05/23 04:49
10/05/23 04:49
Calcium 8.5 mg/dl (8.4-10.2) 10/05/23 04:49
Magnesium 1.7 mg/dl (1.6-2.3) 10/03/23 06:58
Total Bilirubin 0.3 mg/dl (0.2-1.3) 10/02/23 06:16
Direct Bilirubin 0.3 mg/dl (0.0-0.4) 09/23/23 05:21
AST 19 U/L (14-36) 10/02/23 06:16
ALT < 10 U/L (0-35) 10/02/23 06:16
Alkaline Phosphatase 122 U/L (38-126) 10/02/23 06:16
Total Protein 6.0 g/dl (6.3-8.2) L 10/02/23 06:16
Albumin 2.8 g/dl (3.5-5.0) L 10/02/23 06:16
Physical Exam
-
Gen: NAD
Abd: morbidly obese, incisions cdi, approp ttp, drains ss
[2023-10-05 11:37] VITALS: BP 122/63
--- NOTE | 2023-10-05 12:43 | W.PN.ID1 ---
Date of Service
Date of Service: October 05, 2023
Today's Communication
Continue Unasyn 3 g IV every 6 hours. (d#13 abx)
Assessment / Plan
Appendiceal abscess
- s/p laproscopic washout 10/02
Leukocytosis
Thrombocytosis
RYLEY; improved
HTN
Dyslipidemia
DM
Renal insufficiency
Hypothyroidism
Anxiety
Recommendations:
Continue Unasyn 3 g IV every 6 hours. (d#13 abx)
Continue to monitor white count and temperature curve.
����������������������������������������������������������
Chief Complaint
-: Leukocytosis and Other (Abdominal/appendiceal abscess.)
Subjective / Review of Systems
Review of Systems: No Fever and No Chills
Vital Signs / Physical Exam
Vital Signs
Vital Signs
Temp Pulse Resp BP Pulse Ox
99 F 62 18 122/63 92
10/05/23 11:37 10/05/23 12:16 10/05/23 11:37 10/05/23 12:16 10/05/23 11:37
Physical Exam
Constitutional: No Acute Distress, Comfortable, Non-toxic and Obese
Head: Normocephalic
Eyes: Sclera Anicteric
Cardiovascular: S1/S2; Negative S3/S4 or Murmur
Pulmonary: Clear and Non Labored; Negative Wheezes or Rales
Gastrointestinal: Soft, Tender, Non Distended and Other (Multiple JPs in place. Serosanguineous fluid noted.)
Genito-Urinary: Negative Worthy
Skin: Negative Rash or Jaundice
Neurological: Awake, Alert and Oriented
Psychological: Calm
Objective Data
Lab Data
Lab Results
10/05/23 04:49
10/05/23 04:49
Estimated Creat Clear 80 ml/min 10/05/23 04:49
Lactic Acid Cancelled 09/21/23 21:27
Total Bilirubin 0.3 mg/dl (0.2-1.3) 10/02/23 06:16
AST 19 U/L (14-36) 10/02/23 06:16
ALT < 10 U/L (0-35) 10/02/23 06:16
Alkaline Phosphatase 122 U/L (38-126) 10/02/23 06:16
Most recent labs reviewed.
Micro Results:
09/23/23 20:16 Wound Culture - Final
Abdomen Escherichia coli
Viridans Streptococcus Group
Gram Stain - Final
09/21/23 23:25 Blood Culture - Final
Blood/Venous No Growth - Final Report
09/21/23 23:11 Blood Culture - Final
Blood/Venous No Growth - Final Report
09/23/23 09:07 Salmonella/Shigella Culture - Final
Feces/Stool No Salmonella, Shigella, Aeromonas or Plesiomonas species
isolated.
Campylobacter Culture - Final
No Campylobacter species isolated.
Shiga Toxin Test - Final
No E. coli Shiga Toxin 1 or 2 detected.
Stool Leukocytes - Final
09/21/23 21:38 Urine Culture - Final
Urine Escherichia coli
09/23/23 09:07 - Final
Feces/Stool Negative for Norovirus GI and GII.
09/23/23 04:12 C. difficile GDH Antigen & Toxins - Final
Feces/Stool Negative for toxigenic C.difficile
Wound/abscess/other Cult Final 09/23/23
Moderate Escherichia coli of two morphotypes
Moderate Viridans Streptococcus Group
Penicillin G or V with or without Gentamicin is the drug of
choice for treating Viridans Streptococcus Group. Please
notify the Microbiology Laboratory within 72 hours if
additional testing is needed.
Organism 1 Escherichia coli
1. Escherichia coli
M.I.C. RX
--------- ---
Amoxicillin/Potas. Clavulanate <=8/4 S
Ampicillin <=8 S
Ampicillin/Sulbactam <=8/4 S
Cefazolin <=2 S
Ertapenem <=0.5 S
Ciprofloxacin <=0.25 S
Gentamicin <=4 S
Levofloxacin <=0.5 S
Meropenem <=1 S
Piperacillin/Tazobactam <=16 S
Tobramycin <=4 S
Trimethoprim/Sulfamethoxazole <=2/38 S
Imaging:
09/23/2023 CT abdomen/pelvis with IV and oral contrast: Abnormal fluid collection in the right paracolic cutter measuring 6.8 x 3.6 x 4.8 cm immediately lateral to the appendix and adjacent to the cecum. Although the appendix is within the limits of
normal in caliber there are some accompanying inflammatory changes. Findings are suspicious for confined/contained perforated appendicitis or inflammatory/infectious process of the adjacent cecum such as perforated diverticulitis. No free air.
Likely accompanying small bowel ileus. Prior cholecystectomy.
[2023-10-05 15:00] VITALS: BP 109/62
--- NOTE | 2023-10-05 17:10 | CM ---
Addendum entered by Alycia Ledezma 10/05/23 17:12:
Plan: Discharge to homewith no needs anticipated. CM to continue to follow.
Original Note:
Ernesto is continuing to improve and feeling positive today. She is looking forward to going home when she is ready.
Support provided.
--- NOTE | 2023-10-05 17:20 | PTCARENOTE ---
NGT residual checked, 50cc, NGT is d/c as per order and Pt is started on clear liquid diet as per order. Pt offers no complaints at this time
--- NOTE | 2023-10-05 17:35 | W.PN.HOSP.TC ---
Today's Communication/Plan
-
NG tube clamped and removed.
Clear liquid diet trial.
Assessment / Plan
Assessment / Plan
Assessment:
Contained perforated appendicitis with abscess
- CT: Abnormal fluid collection in the right paracolic cutter measuring 6.8 x 3.6 x 4.8 cm immediately lateral to the appendix and adjacent to the cecum. Although the appendix is within the limits of normal in caliber there are some accompanying
inflammatory changes. Findings are suspicious for confined/contained perforated appendicitis or inflammatory/infectious process of the adjacent cecum such as perforated diverticulitis. No free air.
- s/p IRAD guided drainage 09/22; continues to have drainage/repeat CT scan performed 27 September slightly progressed free fluid in pelvis on the right and new on the left mild barium enhancement versus loculated fluid noted
-Surgery and in consultation with interventional radiology agreed to upper caliber and SARA drain now 8.5 [place]
- now with ecoli and viridans strep. ecoli is pansensitive. Asked infectious disease opinion regarding beta strep and possibly will need different antibiotics. ID following. Narrowed antibiotic to Unasyn
-Given smoldering clinical process with persistent drainage, as well as leukocytosis, decision made for surgical intervention.
� 10/02. Status post laparoscopic washout and drainage of intra-abdominal abscess with intraoperative finding including dense adhesions of small bowel and omentum, abscess pockets of the left lower quadrant, pelvis, right lower quadrant were broken
up and drained. 19 [place] Benjamin drain x 2 into the abdomen left lower quadrant into the pelvis and suprapubic and right lower quadrant.
Postoperative recovery: NG tube clamped and removed on 10/04. Clear liquid diet trial.
E. Coli UTI
- continue IV Unasyn which is on for appendeceal abscess. from UTI standpoint she finished treatment
Acute hypoxic respiratory insufficiency likely secondary to atelectasis
continue with IS
Mild hyponatremia
monitor
Suspect renal insufficiency
- reviewed previous 1 years worth of labs on her portal, baseline Cr 1.1
- hold nephrotoxic agents (chlorthalidone, benazepril)
Essential hypertension
- continue amlodipine with parameters
- continue atenolol with parameters
Hypercholesterolemia
- continue statin
Type 2 diabetes
- diet controlled
- holding Mounjaro
Hypothyroidism
- continue levothyroxine
Anxiety/depression
- continue Xanax
- continue paroxetine
Hypokalemia
- replete as needed
Obesity
DVT ppx: SC heparin
Code: Full
Anticipated Discharge: 24 - 48 hours
Subjective/Interval History
-
Date of Service: October 05, 2023
Objective Data
-
Labs:
Laboratory Results
10/05/23
04:49
WBC 20.4 H
Hgb 10.6 L
Hct 33.6 L
Plt Count 894 H
Sodium 141
Potassium 3.8
Chloride 107
Carbon Dioxide 26
BUN 13
Creatinine 0.9
Glucose 83
Calcium 8.5
Vital Signs:
Vital Signs
Temp Pulse Resp BP Pulse Ox
97.9 F 66 16 109/62 93
10/05/23 15:00 10/05/23 15:00 10/05/23 15:00 10/05/23 15:00 10/05/23 15:00
I&O
10/04/23 10/05/23 10/06/23
06:59 06:59 06:59
Intake Total 1070 / 1070 2380 / 2380
Output Total 860 / 860 959 / 959 18 18
Balance 210 / 210 1421 / 1421 -18 / -18
Physical Exam
-
General: Well Developed and No Apparent Distress
HEENT: Normocephalic, Atraumatic and Moist Mucous Membranes
Respiratory: Clear to Auscultation
Cardiac: Regular Rhythm and S1/S2; Negative Murmur, Rub or Gallop
GI: Soft, Nontender, Nondistended and Normal Bowel Sounds; Negative Organomegaly
Rectal: Deferred by Provider
Musculoskeletal: No Clubbing, No Cyanosis and No Edema
Skin: Negative Rash
Neuro: Nonfocal/Grossly Intact
[2023-10-05] MEDS: LOPRESSOR IV (17:38)
[2023-10-05] MEDS: LOVENOX 40 MG SC (17:40)
[2023-10-05] MEDS: LEVOTHROID 112.5 MCG IV (17:41)
[2023-10-05 19:55] VITALS: BP 102/55
[2023-10-05 23:52] VITALS: BP 116/67
[2023-10-06 03:41] VITALS: BP 112/61
[2023-10-06] MEDS: LOPRESSOR 5 MG IV ×3 (05:00→17:44)
[2023-10-06] MEDS: ZOSYN 50 IV ×4 (05:00→23:37)
[2023-10-06] MEDS: DILAUDID 0.5 MG IV ×4 (05:01→21:52)
[2023-10-06 06:03] LABS: Blood Urea Nitrogen 9 mg/dl (7-17); Calcium 8.5 mg/dl (8.4-10.2); Carbon Dioxide 22 mmol/L (22-30); Chloride 107 mmol/L (98-107); Estimated Creatinine Clearance 91 ml/min; Glucose 80 mg/dl (70-99); Potassium 3.6 mmol/L (3.5-5.1); Sodium 138 mmol/L (135-145); eGFR > 60.00
[2023-10-06 07:12] VITALS: BP 124/68
[2023-10-06] MEDS: NSS (PRESERVATIVE FREE) 10 ML IV (08:49)
[2023-10-06] MEDS: VISBIOME 1 CAP PO (08:50)
[2023-10-06] MEDS: PROTONIX IV 40 MG IV (08:50)
--- NOTE | 2023-10-06 10:11 | W.PN.GS2 ---
Today's Communication / Plan
-
`
Assessment / Plan
-
Assessment: 62 yo female with a h/o open cholecystectomy, DM and hypothyroid who presented with mid abdominal abdominal pain on 09/21/23. Initial CT read as relatively benign. UTI noted and antibiotics were initiated on presentation. She was not
improving clinically. WBC noted to be rising with no improvement/worsening in pain and thus repeat imaging was preformed with findings consistent with perforated appendicitis with abscess prompting subsequent surgical consultation.
s/p IR drain placement on 09/22
Urine cx +ecoli, Drain cx +ecoli and strep viridans. Blood cx NG
Rpt CT 09/27 with partially undrained RUQ collection and some new collections that are small and not amenable to drainage, and pelvic LUQ collections
s/p IR drain exchange on 09/28
POD#3 s/p laparoscopic (hand assisted abdominal washout with drain placement
AFVSS
harriett clears without nausea or distention, would like to try fulls
JPs with ocean forwarder SSF, non bilious, not significanly purulent
Plan:
-- cautious diet advancement to fulls but continue to monitor for symptoms of ileus
-- Pain: Tylenol, Toradol, IV Dilaudid PRN
-- continue JPs
-- Abx: Zosyn, ID on board
-- OOB/ambulate as able
-- DVT: Lovenox
-- GI PPI while NGT
-- Ambulate
Subjective Data
-
Date of Service: October 06, 2023
pt seen and examined
harriett clears, no nausea, abdominal bloating or distention
no fl or BM
some right sided and incisional abd pain
Objective Data
-
Intake and Output
10/05/23 10/06/23 10/07/23
06:59 06:59 06:59
Intake Total 2380 / 2380 1780 / 1780
Output Total 959 / 959 51 / 51
Balance 1421 / 1421 1729 / 1729
Intake:
Oral fluids 480 / 480
IV fluids (Total) 2000 / 1999 1200 / 1200
IV piggybacks 200 / 200 100 / 100
Amount instilled into GI Tube ( 180 / 180
Total)
[place] 180 / 180
Output:
Drain Output (Total) 84 / 84 51 / 51
Left Middle Abdomen [place]- 46 / 46 /
Nguyen B
Right Lower Abdomen [place]-
Nguyen A
Gastrointestinal tube output ( 875
Total)
[place] S[place] 87 / 875
Other:
Number of approximated MODERATE 1 2
amounts of urine
Number of approximated LARGE 3
amounts of urine
Vital Signs
Temp Pulse Resp BP Pulse Ox
98.0 F 59 16 124/68 95
10/06/23 07:12 10/06/23 07:12 10/06/23 07:12 10/06/23 07:12 10/06/23 07:12
Lab Results
10/05/23 04:49
10/06/23 04:53
Calcium 8.5 mg/dl (8.4-10.2) 10/06/23 04:53
Magnesium 1.7 mg/dl (1.6-2.3) 10/03/23 06:58
Total Bilirubin 0.3 mg/dl (0.2-1.3) 10/02/23 06:16
Direct Bilirubin 0.3 mg/dl (0.0-0.4) 09/23/23 05:21
AST 19 U/L (14-36) 10/02/23 06:16
ALT < 10 U/L (0-35) 10/02/23 06:16
Alkaline Phosphatase 122 U/L (38-126) 10/02/23 06:16
Total Protein 6.0 g/dl (6.3-8.2) L 10/02/23 06:16
Albumin 2.8 g/dl (3.5-5.0) L 10/02/23 06:16
Physical Exam
-
NAD AAOx3
ABD: soft, obese, nondistended, TTP right sided and incision
midline incision with aquacel dressing
[2023-10-06] MEDS: NSS 1000 IV ×2 (11:06→23:37)
[2023-10-06 11:13] VITALS: BP 117/56
[2023-10-06] MEDS: LOPRESSOR IV ×2 (12:24→23:41)
[2023-10-06 15:35] VITALS: BP 109/59
--- NOTE | 2023-10-06 16:00 | PTCARENOTE ---
Pt tolerating full liquid diet without any increase in abdominal pain, no N/V. Pt still not passing flatus. Pt up in hallway ambulating this afternoon.
--- NOTE | 2023-10-06 16:38 | W.PN.HOSP.TC ---
Today's Communication/Plan
-
Liquid diet
Wean off IV fluid
IV antibiotics
Follow CBC
Assessment / Plan
Assessment / Plan
Assessment:
Contained perforated appendicitis with abscess
- CT: Abnormal fluid collection in the right paracolic cutter measuring 6.8 x 3.6 x 4.8 cm immediately lateral to the appendix and adjacent to the cecum. Although the appendix is within the limits of normal in caliber there are some accompanying
inflammatory changes. Findings are suspicious for confined/contained perforated appendicitis or inflammatory/infectious process of the adjacent cecum such as perforated diverticulitis. No free air.
- s/p IRAD guided drainage 09/22; continues to have drainage/repeat CT scan performed 27 September slightly progressed free fluid in pelvis on the right and new on the left mild barium enhancement versus loculated fluid noted
-Surgery and in consultation with interventional radiology agreed to upper caliber and SARA drain now 8.5 [place]
- now with ecoli and viridans strep. ecoli is pansensitive. Asked infectious disease opinion regarding beta strep and possibly will need different antibiotics. ID following. Narrowed antibiotic to Unasyn
-Given smoldering clinical process with persistent drainage, as well as leukocytosis, decision made for surgical intervention.
� 10/02. Status post laparoscopic washout and drainage of intra-abdominal abscess with intraoperative finding including dense adhesions of small bowel and omentum, abscess pockets of the left lower quadrant, pelvis, right lower quadrant were broken
up and drained. 19 [place] Benjamin drain x 2 into the abdomen left lower quadrant into the pelvis and suprapubic and right lower quadrant.
Postoperative recovery: NG tube clamped and removed on 10/04. Full liquid diet
E. Coli UTI
- continue IV Unasyn which is on for appendeceal abscess. from UTI standpoint she finished treatment
Acute hypoxic respiratory insufficiency likely secondary to atelectasis
continue with IS
Mild hyponatremia
monitor
Suspect renal insufficiency
- reviewed previous 1 years worth of labs on her portal, baseline Cr 1.1
- hold nephrotoxic agents (chlorthalidone, benazepril)
Essential hypertension
- continue amlodipine with parameters
- continue atenolol with parameters
Hypercholesterolemia
- continue statin
Type 2 diabetes
- diet controlled
- holding Mounjaro
Hypothyroidism
- continue levothyroxine
Anxiety/depression
- continue Xanax
- continue paroxetine
Hypokalemia
- replete as needed
Obesity
DVT ppx: SC heparin
Code: Full
Anticipated Discharge: 24 - 48 hours
Subjective/Interval History
-
Date of Service: October 06, 2023
Objective Data
-
Labs:
Laboratory Results
10/06/23
04:53
Sodium 138
Potassium 3.6
Chloride 107
Carbon Dioxide 22
BUN 9
Creatinine 0.8
Glucose 80
Calcium 8.5
Vital Signs:
Vital Signs
Temp Pulse Resp BP Pulse Ox
98.7 F 64 22 109/59 94
10/06/23 15:35 10/06/23 15:35 10/06/23 15:35 10/06/23 15:35 10/06/23 15:35
I&O
10/05/23 10/06/23 10/07/23
06:59 06:59 06:59
Intake Total 2380 / 2380 1780 / 1780
Output Total 959 / 959 51 / 51 5 / 5
Balance 1421 / 1421 1729 / 1729 -5 / -5
Physical Exam
-
General: Well Developed and No Apparent Distress
HEENT: Normocephalic, Atraumatic and Moist Mucous Membranes
Respiratory: Clear to Auscultation
Cardiac: Regular Rhythm and S1/S2; Negative Murmur, Rub or Gallop
GI: Soft, Nontender, Nondistended and Other (Bilateral lower quadrant drains); Negative Organomegaly
Rectal: Deferred by Provider
Musculoskeletal: No Clubbing, No Cyanosis and No Edema
Skin: Negative Rash
Neuro: Nonfocal/Grossly Intact
[2023-10-06] MEDS: LEVOTHROID 112.5 MCG IV (17:44)
[2023-10-06] MEDS: LOVENOX 40 MG SC (17:49)
[2023-10-06 19:00] VITALS: BP 108/67
[2023-10-06 23:31] VITALS: BP 107/65
[2023-10-07 03:45] VITALS: BP 118/63
[2023-10-07] MEDS: DILAUDID 0.5 MG IV ×2 (05:21→09:18)
[2023-10-07] MEDS: LOPRESSOR 5 MG IV (05:22)
[2023-10-07] MEDS: ZOSYN 50 IV ×4 (05:22→23:12)
[2023-10-07 07:35] VITALS: BP 115/65
[2023-10-07 07:57] LABS: % Basophils 0.4 % (0-2); % Eosinophils 1.3 % (0-6); % Immature Granulocytes 0.8 % (0-0.5); % Lymphocytes 8.6 % (20.5-51.1); % Monocytes 6.5 % (1.7-9.3); % Neutrophils 82.4 % (42.2-75.2); Absolute Basophils 0.1 10^3/uL (0-0.2); Absolute Eosinophils 0.2 10^3/uL (0-0.7); Absolute Immature Granulocytes 0.1 10^3/uL (0-0.05); Absolute Lymphocytes 1.4 10^3/uL (1.2-3.4); Absolute Monocytes 1.1 10^3/uL (0.1-0.6); Absolute Neutrophils 13.8 10^3/uL (1.4-6.5); Hematocrit 33.1 % (37.0-47.0); Hemoglobin 10.5 g/dL (12.0-16.0); Mean Corp Hgb Conc. 31.7 g/dL (33.0-37.0); Mean Corpuscular Hgb 28.2 pg (27.0-31.0); Mean Platelet Volume 8.9 fL (7.4-10.4); Nucleated Red Blood Cells % 0 %; Platelet Count 829 10^3/uL (130-400); Red Blood Cell Count 3.72 10^6/uL (4.20-5.40); Red Cell Dist. Width 13.3 % (11.5-14.5); White Blood Cell Count 16.7 10^3/uL (4.8-10.8)
[2023-10-07 08:43] LABS: Blood Urea Nitrogen 6 mg/dl (7-17); Calcium 8.3 mg/dl (8.4-10.2); Carbon Dioxide 25 mmol/L (22-30); Chloride 106 mmol/L (98-107); Estimated Creatinine Clearance 91 ml/min; Glucose 85 mg/dl (70-99); Potassium 3.5 mmol/L (3.5-5.1); Sodium 140 mmol/L (135-145); eGFR > 60.00
[2023-10-07] MEDS: NSS (PRESERVATIVE FREE) 10 ML IV (09:18)
[2023-10-07] MEDS: VISBIOME 1 CAP PO (09:18)
[2023-10-07] MEDS: PROTONIX IV 40 MG IV (09:18)
--- NOTE | 2023-10-07 10:19 | W.PN.GS2 ---
Addendum entered and electronically signed by Charles Quezada MD 10/07/23 10:54:
I saw and examined the patient independently.
The Legal Counsel's note was reviewed and I agree with the note, assessment and plan except where noted below.
Comment: This is a 62-year-old female status post laparoscopic washout for perforated appendicitis. Expected postoperative course. +ROBF
Okay for trial of diabetic diet.
Continue pain control.
Antibiotics per ID.
Original Note:
Today's Communication / Plan
-
Advance diet
Assessment / Plan
-
Assessment: 62 yo female with a h/o open cholecystectomy, DM and hypothyroid who presented with mid abdominal abdominal pain on 09/21/23. Initial CT read as relatively benign. UTI noted and antibiotics were initiated on presentation. She was not
improving clinically. WBC noted to be rising with no improvement/worsening in pain and thus repeat imaging was preformed with findings consistent with perforated appendicitis with abscess prompting subsequent surgical consultation.
s/p IR drain placement on 09/22
Urine cx +ecoli, Drain cx +ecoli and strep viridans. Blood cx NG
Rpt CT 09/27 with partially undrained RUQ collection and some new collections that are small and not amenable to drainage, and pelvic LUQ collections
s/p IR drain exchange on 09/28
POD#4 s/p laparoscopic (hand assisted abdominal washout with drain placement
AFVSS
tolerating diet with passage of stools
JPs with regulator inspector SSF, non bilious, not significantly purulent
Plan:
-- Advance to diabetic diet
-- Pain: Tylenol, Toradol, Oxycodone prn.
-- continue JPs
-- Abx: Zosyn, ID on board
-- OOB/ambulate as able
-- DVT ppx: Lovenox
-- GI ppx: Protonix po
Subjective Data
-
Date of Service: October 07, 2023
Patient seen and examined at bedside with Dr. Philip. Monroy n/v. Tolerating diet. Passing loose stools. Minimal discomfort.
Objective Data
-
Intake and Output
10/06/23 10/07/23 10/08/23
06:59 06:59 06:59
Intake Total 1780 / 1780 1560 / 1560
Output Total
Balance 1729 / 1729 1540 / 1540
Intake:
Oral fluids 480 / 480 360 / 360
IV fluids (Total) 1200 / 1200 1100 / 1100
IV piggybacks 100 / 100 100 / 100
Output:
Drain Output (Total)
Left Middle Abdomen [facility]
Nguyen B
Right Lower Abdomen [facility]
Nguyen A
Other:
Number of approximated MODERATE 2 2
amounts of urine
How many times incontinent 2
MODERATE amount urine
Vital Signs
Temp Pulse Resp BP Pulse Ox
97.5 F 56 18 115/65 95
10/07/23 07:35 10/07/23 07:35 10/07/23 07:35 10/07/23 07:35 10/07/23 07:35
Lab Results
10/07/23 07:21
10/07/23 07:21
Calcium 8.3 mg/dl (8.4-10.2) L 10/07/23 07:21
Magnesium 1.7 mg/dl (1.6-2.3) 10/03/23 06:58
Total Bilirubin 0.3 mg/dl (0.2-1.3) 10/02/23 06:16
Direct Bilirubin 0.3 mg/dl (0.0-0.4) 09/23/23 05:21
AST 19 U/L (14-36) 10/02/23 06:16
ALT < 10 U/L (0-35) 10/02/23 06:16
Alkaline Phosphatase 122 U/L (38-126) 10/02/23 06:16
Total Protein 6.0 g/dl (6.3-8.2) L 10/02/23 06:16
Albumin 2.8 g/dl (3.5-5.0) L 10/02/23 06:16
Physical Exam
-
NAD AAOx3
ABD: soft, obese, nondistended, mild TTP right sided and incision
midline incision with intact tabatha, port sites with intact glue
Drains with SSF x2
[2023-10-07 11:07] VITALS: BP 108/57
[2023-10-07] MEDS: NSS IV (11:36)
--- NOTE | 2023-10-07 12:21 | W.PN.ID1 ---
Addendum entered and electronically signed by Rafael Marquez DO 10/07/23 12:40:
Correction : patient on Zosyn 3.375 gm IV q6h (d#4) / (d#16 abx)
Original Note:
Date of Service
Date of Service: October 07, 2023
Today's Communication
Continue Unasyn 3 g IV every 6 hours. (d#15 abx)
Assessment / Plan
Appendiceal abscess
- s/p laproscopic washout 10/02
Leukocytosis
Thrombocytosis
RYLEY; improved
HTN
Dyslipidemia
DM
Renal insufficiency
Hypothyroidism
Anxiety
Recommendations:
Leukocytosis improved today.
Continue Unasyn 3 g IV every 6 hours. (d#15 abx)
Continue to monitor white count and temperature curve for improvement.
����������������������������������������������������������
Chief Complaint
-: Leukocytosis and Other (Abdominal/appendiceal abscess.)
Subjective / Review of Systems
Review of Systems: No Fever, No Chills and Abdominal Pain (minimal)
Vital Signs / Physical Exam
Vital Signs
Vital Signs
Temp Pulse Resp BP Pulse Ox
98.7 F 58 18 108/57 96
10/07/23 11:07 10/07/23 11:07 10/07/23 11:07 10/07/23 11:07 10/07/23 11:07
Physical Exam
Constitutional: No Acute Distress, Comfortable, Non-toxic and Obese
Head: Normocephalic
Eyes: Sclera Anicteric
Cardiovascular: S1/S2; Negative S3/S4 or Murmur
Pulmonary: Clear and Non Labored; Negative Wheezes or Rales
Gastrointestinal: Soft, Tender, Non Distended and Other (Multiple JPs in place. Serosanguineous fluid noted but clearing.)
Genito-Urinary: Negative Worthy
Skin: Negative Rash or Jaundice
Neurological: Awake, Alert and Oriented
Psychological: Calm
Objective Data
Lab Data
Lab Results
10/07/23 07:21
10/07/23 07:21
Estimated Creat Clear 91 ml/min 10/07/23 07:21
Lactic Acid Cancelled 09/21/23 21:27
Total Bilirubin 0.3 mg/dl (0.2-1.3) 10/02/23 06:16
AST 19 U/L (14-36) 10/02/23 06:16
ALT < 10 U/L (0-35) 10/02/23 06:16
Alkaline Phosphatase 122 U/L (38-126) 10/02/23 06:16
Most recent labs reviewed.
Micro Results:
09/23/23 20:16 Wound Culture - Final
Abdomen Escherichia coli
Viridans Streptococcus Group
Gram Stain - Final
09/21/23 23:25 Blood Culture - Final
Blood/Venous No Growth - Final Report
09/21/23 23:11 Blood Culture - Final
Blood/Venous No Growth - Final Report
09/23/23 09:07 Salmonella/Shigella Culture - Final
Feces/Stool No Salmonella, Shigella, Aeromonas or Plesiomonas species
isolated.
Campylobacter Culture - Final
No Campylobacter species isolated.
Shiga Toxin Test - Final
No E. coli Shiga Toxin 1 or 2 detected.
Stool Leukocytes - Final
09/21/23 21:38 Urine Culture - Final
Urine Escherichia coli
09/23/23 09:07 - Final
Feces/Stool Negative for Norovirus GI and GII.
09/23/23 04:12 C. difficile GDH Antigen & Toxins - Final
Feces/Stool Negative for toxigenic C.difficile
Wound/abscess/other Cult Final 09/23/23
Moderate Escherichia coli of two morphotypes
Moderate Viridans Streptococcus Group
Penicillin G or V with or without Gentamicin is the drug of
choice for treating Viridans Streptococcus Group. Please
notify the Microbiology Laboratory within 72 hours if
additional testing is needed.
Organism 1 Escherichia coli
1. Escherichia coli
M.I.C. RX
--------- ---
Amoxicillin/Potas. Clavulanate <=8/4 S
Ampicillin <=8 S
Ampicillin/Sulbactam <=8/4 S
Cefazolin <=2 S
Ertapenem <=0.5 S
Ciprofloxacin <=0.25 S
Gentamicin <=4 S
Levofloxacin <=0.5 S
Meropenem <=1 S
Piperacillin/Tazobactam <=16 S
Tobramycin <=4 S
Trimethoprim/Sulfamethoxazole <=2/38 S
Imaging:
09/23/2023 CT abdomen/pelvis with IV and oral contrast: Abnormal fluid collection in the right paracolic cutter measuring 6.8 x 3.6 x 4.8 cm immediately lateral to the appendix and adjacent to the cecum. Although the appendix is within the limits of
normal in caliber there are some accompanying inflammatory changes. Findings are suspicious for confined/contained perforated appendicitis or inflammatory/infectious process of the adjacent cecum such as perforated diverticulitis. No free air.
Likely accompanying small bowel ileus. Prior cholecystectomy.
[2023-10-07] MEDS: LOPRESSOR IV (12:26)
[2023-10-07] MEDS: TORADOL 15 MG IV (13:19)
[2023-10-07] MEDS: FLUSH (NSS) 2 FLUSH IV (13:20)
[2023-10-07 15:46] VITALS: BP 116/64
--- NOTE | 2023-10-07 15:49 | W.PN.HOSP.TC ---
Today's Communication/Plan
-
Continue bilateral lower quadrant SARA drains and monitor output.
IV antibiotics.
Low residue diet
Transition back to oral medications including antihypertensives, levothyroxine, depression and anxiety meds.
Assessment / Plan
Assessment / Plan
Assessment:
Contained perforated appendicitis with abscess
- CT: Abnormal fluid collection in the right paracolic cutter measuring 6.8 x 3.6 x 4.8 cm immediately lateral to the appendix and adjacent to the cecum. Although the appendix is within the limits of normal in caliber there are some accompanying
inflammatory changes. Findings are suspicious for confined/contained perforated appendicitis or inflammatory/infectious process of the adjacent cecum such as perforated diverticulitis. No free air.
- s/p IRAD guided drainage 09/22; continues to have drainage/repeat CT scan performed 27 September slightly progressed free fluid in pelvis on the right and new on the left mild barium enhancement versus loculated fluid noted
-Surgery and in consultation with interventional radiology agreed to upper caliber and SARA drain now 8.5 [place]
- now with ecoli and viridans strep. ecoli is pansensitive. Asked infectious disease opinion regarding beta strep and possibly will need different antibiotics. ID following. Narrowed antibiotic to Unasyn
-Given smoldering clinical process with persistent drainage, as well as leukocytosis, decision made for surgical intervention.
� 10/02. Status post laparoscopic washout and drainage of intra-abdominal abscess with intraoperative finding including dense adhesions of small bowel and omentum, abscess pockets of the left lower quadrant, pelvis, right lower quadrant were broken
up and drained. 19 [place] Benjamin drain x 2 into the abdomen left lower quadrant into the pelvis and suprapubic and right lower quadrant.
Postoperative recovery: NG tube clamped and removed on 10/04.
Advance to low residue diet on 10/06
E. Coli UTI
- continue IV Unasyn which is on for appendeceal abscess. from UTI standpoint she finished treatment
Acute hypoxic respiratory insufficiency likely secondary to atelectasis
continue with IS
Mild hyponatremia
monitor
Suspect renal insufficiency
- reviewed previous 1 years worth of labs on her portal, baseline Cr 1.1
- hold nephrotoxic agents (chlorthalidone, benazepril)
Essential hypertension
Blood pressure remains soft. Will reinstate atenolol and monitor. Hold lisinopril and amlodipine for now.
Hypercholesterolemia
- continue statin
Type 2 diabetes
- diet controlled
- holding Mounjaro
Recent hemoglobin A1c as low as 5.
No need to monitor serial blood glucose at this point.
Hypothyroidism
- continue levothyroxine
Anxiety/depression
- continue Xanax
- continue paroxetine
Hypokalemia
- replete as needed
Obesity
DVT ppx: SC heparin
Code: Full
Anticipated Discharge: 24 - 48 hours
Subjective/Interval History
-
Date of Service: October 07, 2023
Objective Data
-
Labs:
Laboratory Results
10/07/23
07:21
WBC 16.7 H
Hgb 10.5 L
Hct 33.1 L
Plt Count 829 H
Sodium 140
Potassium 3.5
Chloride 106
Carbon Dioxide 25
BUN 6 L
Creatinine 0.8
Glucose 85
Calcium 8.3 L
Vital Signs:
Vital Signs
Temp Pulse Resp BP Pulse Ox
98.8 F 58 18 116/64 95
10/07/23 15:46 10/07/23 15:46 10/07/23 15:46 10/07/23 15:46 10/07/23 15:46
I&O
10/06/23 10/07/23 10/08/23
06:59 06:59 06:59
Intake Total 1780 / 1780 1560 / 1560
Output Total 51 / 51 20 / 20
Balance 1729 / 1729 1540 / 1540
Physical Exam
-
General: Well Developed and No Apparent Distress
HEENT: Normocephalic, Atraumatic and Moist Mucous Membranes
Respiratory: Clear to Auscultation
Cardiac: Regular Rhythm and S1/S2; Negative Murmur, Rub or Gallop
GI: Soft, Nontender, Nondistended and Other (Bilateral lower quadrant drains); Negative Organomegaly
Rectal: Deferred by Provider
Musculoskeletal: No Clubbing, No Cyanosis and No Edema
Skin: Negative Rash
Neuro: Nonfocal/Grossly Intact
--- NOTE | 2023-10-07 16:46 | CM ---
I met with Ernesto earlier today in her hospital room. She is feeling better and anxious to return home to her family.
IV abx continue; Ernetso is hoping she can go home with IV abx, however this has not been discussed or mentioned by the physician.
Plan: CM will continue to follow to provide support and assist with discharge planning needs as indicated.
[2023-10-07] MEDS: LOVENOX 40 MG SC (17:23)
[2023-10-07] MEDS: ROXICODONE 5 MG PO (22:34)
[2023-10-07 23:35] VITALS: BP 116/62
[2023-10-08] MEDS: ZOSYN 50 IV ×4 (05:20→23:09)
[2023-10-08] MEDS: SYNTHROID 150 MCG PO (05:20)
[2023-10-08 07:14] VITALS: BP 113/61
[2023-10-08 07:36] LABS: Hematocrit 32.7 % (37.0-47.0); Hemoglobin 10.2 g/dL (12.0-16.0); Mean Corp Hgb Conc. 31.2 g/dL (33.0-37.0); Mean Corpuscular Hgb 28.7 pg (27.0-31.0); Mean Corpuscular Volume 91.9 fL (81.0-99.0); Mean Platelet Volume 9.2 fL (7.4-10.4); Platelet Count 811 10^3/uL (130-400); Red Blood Cell Count 3.56 10^6/uL (4.20-5.40); Red Cell Dist. Width 13.3 % (11.5-14.5); White Blood Cell Count 16.6 10^3/uL (4.8-10.8)
[2023-10-08 08:00] LABS: Blood Urea Nitrogen 7 mg/dl (7-17); Calcium 8.9 mg/dl (8.4-10.2); Carbon Dioxide 26 mmol/L (22-30); Chloride 104 mmol/L (98-107); Estimated Creatinine Clearance 91 ml/min; Glucose 82 mg/dl (70-99); Potassium 4.2 mmol/L (3.5-5.1); Sodium 137 mmol/L (135-145); eGFR > 60.00
--- NOTE | 2023-10-08 08:15 | W.PN.HOSP.TC ---
Today's Communication/Plan
-
see bold
Assessment / Plan
Assessment / Plan
Assessment:
Contained perforated appendicitis with abscess
- CT: Abnormal fluid collection in the right paracolic cutter measuring 6.8 x 3.6 x 4.8 cm immediately lateral to the appendix and adjacent to the cecum. Although the appendix is within the limits of normal in caliber there are some accompanying
inflammatory changes. Findings are suspicious for confined/contained perforated appendicitis or inflammatory/infectious process of the adjacent cecum such as perforated diverticulitis. No free air.
- s/p IRAD guided drainage 09/22; continues to have drainage/repeat CT scan performed 27 September slightly progressed free fluid in pelvis on the right and new on the left mild barium enhancement versus loculated fluid noted
-Surgery and in consultation with interventional radiology agreed to upper caliber and SARA drain now 8.5 [place]
- now with ecoli and viridans strep. ecoli is pansensitive. Asked infectious disease opinion regarding beta strep and possibly will need different antibiotics. ID following. Narrowed antibiotic to Unasyn
-Given smoldering clinical process with persistent drainage, as well as leukocytosis, decision made for surgical intervention.
� 10/02. Status post laparoscopic washout and drainage of intra-abdominal abscess with intraoperative finding including dense adhesions of small bowel and omentum, abscess pockets of the left lower quadrant, pelvis, right lower quadrant were broken
up and drained. 19 [place] Benjamin drain x 2 into the abdomen left lower quadrant into the pelvis and suprapubic and right lower quadrant.
Postoperative recovery: NG tube clamped and removed on 10/04.
-Tolerating solids, patient asking for regular low residue instead of diabetic diet
-Continue IV Zosyn as per ID, continue SARA drain to bulb suction
-ID says that patient can transition to oral antibiotics at time of discharge
-Leukocytosis stable, continue to trend fever and white count
E. Coli UTI
- From UTI standpoint she finished treatment
Acute hypoxic respiratory insufficiency likely secondary to atelectasis
-Resolved, she is currently satting 96% on room air
Insomnia
-Start melatonin and Benadryl
Mild hyponatremia
monitor
Suspect renal insufficiency
- reviewed previous 1 years worth of labs on her portal, baseline Cr 1.1
- hold nephrotoxic agents (chlorthalidone, benazepril)
-Creatinine normalized
Essential hypertension
Blood pressure remains soft. Will reinstate atenolol and monitor. Hold lisinopril and amlodipine for now.
Hypercholesterolemia
- continue statin
Type 2 diabetes
- diet controlled
- holding Mounjaro
Recent hemoglobin A1c as low as 5.
No need to monitor serial blood glucose at this point.
Hypothyroidism
- continue levothyroxine
Anxiety/depression
- continue Xanax
- continue paroxetine
Hypokalemia
- replete as needed
Obesity
DVT ppx: SC Lovenox
Code: Full
Total time spent to see the patient on the floor, examine the patient, review data and lab results, discuss treatment plan with patient, nursing staff around 35 minutes.
Physical Exam
General: Morbidly obese, no acute distress
HEENT: Normocephalic, Atraumatic, EOMI, MMM
Respiratory: Clear to Auscultation bilaterally
Cardiac: Normal S1/S2, Regular Rate and Rhythm
GI: Soft, mildly distended, severely obese, appropriately tender to palpation, SARA drain in place
Extremities: No Clubbing, Cyanosis, or Edema
Neuro: Nonfocal/Grossly Intact
Anticipated Discharge: > 48 hours
Subjective/Interval History
-
Date of Service: October 08, 2023
Patient denies abdominal pain, denies shortness of breath. She is tolerating her low residue diet. No fever, no vomiting. She does complain of insomnia.
Objective Data
-
Labs:
Laboratory Results
10/08/23
06:22
WBC 16.6 H
Hgb 10.2 L
Hct 32.7 L
Plt Count 811 H
Sodium 137
Potassium 4.2
Chloride 104
Carbon Dioxide 26
BUN 7
Creatinine 0.8
Glucose 82
Calcium 8.9
Vital Signs:
Vital Signs
Temp Pulse Resp BP Pulse Ox
98 F 55 16 113/61 96
10/08/23 07:14 10/08/23 07:14 10/08/23 07:14 10/08/23 07:14 10/08/23 07:14
I&O
10/07/23 10/08/23 10/09/23
06:59 06:59 06:59
Intake Total 1560 / 1560 1660 / 1660
Output Total
Balance 1540 / 1540 1632 / 1632
[2023-10-08] MEDS: PAXIL 40 MG PO (09:03)
[2023-10-08] MEDS: LIPITOR 10 MG PO (09:03)
[2023-10-08] MEDS: VISBIOME 1 CAP PO (09:04)
[2023-10-08] MEDS: TENORMIN 100 MG PO (09:04)
[2023-10-08] MEDS: PROTONIX 40 MG PO (09:04)
--- NOTE | 2023-10-08 11:15 | W.PN.GS2 ---
Addendum entered and electronically signed by Rafael Diaz MD 10/08/23 12:18:
I saw and examined the patient.
The HEAD BUCKER's note was reviewed and I agree with the note.
Comment:
No complaints, tolerating diet, having BMs
AFVSS, ABD S/ND/appropriately tender near incision, SARA with 28 mL dark serosang
�Continue regular diet
� Continue IV antibiotics; appreciate ID; persistent but stable leukocytosis
� Continue SARA to bulb suction
� OOB/IS
Original Note:
Today's Communication / Plan
-
Continue IV abx
Assessment / Plan
-
Assessment: 62 yo female with a h/o open cholecystectomy, DM and hypothyroid who presented with mid abdominal abdominal pain on 09/21/23. Initial CT read as relatively benign. UTI noted and antibiotics were initiated on presentation. She was not
improving clinically. WBC noted to be rising with no improvement/worsening in pain and thus repeat imaging was preformed with findings consistent with perforated appendicitis with abscess prompting subsequent surgical consultation.
s/p IR drain placement on 09/22
Urine cx +ecoli, Drain cx +ecoli and strep viridans. Blood cx NG
Rpt CT 09/27 with partially undrained RUQ collection and some new collections that are small and not amenable to drainage, and pelvic LUQ collections
s/p IR drain exchange on 09/28
POD#5 s/p laparoscopic (hand assisted abdominal washout with drain placement)
AFVSS
tolerating diet with passage of stools
JPs with bag valver SSF, non bilious, not significantly purulent
Leukocytosis persists
Plan:
-- Continue diabetic diet
-- Pain: Tylenol, Toradol, Oxycodone prn.
-- continue JPs
-- Abx: Zosyn, ID on board
-- Trend CBC
-- OOB/ambulate as able
-- DVT ppx: Lovenox
-- GI ppx: Protonix po
Subjective Data
-
Date of Service: October 08, 2023
Patient seen and examined at bedside with Dr. Diaz. Denies n/v. Tolerating diet. Passing stools but has not noted any passage of flatus. No abdominal pain, some soreness at incisions sites.
Objective Data
-
Intake and Output
10/07/23 10/08/23 10/09/23
06:59 06:59 06:59
Intake Total 1560 / 1560 1660 / 1660
Output Total
Balance 1540 / 1540 1632 / 1632
Intake:
Oral fluids 360 / 360 960 / 960
IV fluids (Total) 1100 / 1100 500 / 500
IV piggybacks 100 / 100 200 / 200
Output:
Drain Output (Total)
Left Middle Abdomen [facility]
Nguyen B
Right Lower Abdomen [facility]
Nguyen A
Other:
Number of approximated MODERATE 2 2
amounts of urine
How many times incontinent 2
MODERATE amount urine
Vital Signs
Temp Pulse Resp BP Pulse Ox
98 F 55 16 113/61 96
10/08/23 07:14 10/08/23 09:04 10/08/23 07:14 10/08/23 09:04 10/08/23 07:14
Lab Results
10/08/23 06:22
10/08/23 06:22
Calcium 8.9 mg/dl (8.4-10.2) 10/08/23 06:22
Magnesium 1.7 mg/dl (1.6-2.3) 10/03/23 06:58
Total Bilirubin 0.3 mg/dl (0.2-1.3) 10/02/23 06:16
Direct Bilirubin 0.3 mg/dl (0.0-0.4) 09/23/23 05:21
AST 19 U/L (14-36) 10/02/23 06:16
ALT < 10 U/L (0-35) 10/02/23 06:16
Alkaline Phosphatase 122 U/L (38-126) 10/02/23 06:16
Total Protein 6.0 g/dl (6.3-8.2) L 10/02/23 06:16
Albumin 2.8 g/dl (3.5-5.0) L 10/02/23 06:16
Physical Exam
-
NAD AAOx3
ABD: soft, obese, nondistended, ND
midline incision with intact tabatha, port sites with intact glue
Drains with SSF x2
--- NOTE | 2023-10-08 14:28 | W.PN.ID1 ---
Date of Service
Date of Service: October 08, 2023
Today's Communication
Continue Zosyn.
Assessment / Plan
Appendiceal abscess
- s/p laproscopic washout 10/02
Leukocytosis - trending down
Thrombocytosis
RYLEY; improved
HTN
Dyslipidemia
DM
Renal insufficiency
Hypothyroidism
Anxiety
Recommendations:
Leukocytosis improved today.
Continue Zosyn. (d#16 abx)
At time of discharge, transition to po abx.
Continue to monitor white count and temperature curve for improvement.
����������������������������������������������������������
Chief Complaint
-: Leukocytosis and Other (Abdominal/appendiceal abscess.)
Subjective / Review of Systems
Feels well. no diarrhea. Asking when she can go home.
Vital Signs / Physical Exam
Vital Signs
Vital Signs
Temp Pulse Resp BP Pulse Ox
98 F 55 16 113/61 96
10/08/23 07:14 10/08/23 09:04 10/08/23 07:14 10/08/23 09:04 10/08/23 11:43
Physical Exam
Constitutional: No Acute Distress
Gastrointestinal: Soft, Non Tender and Non Distended
Neurological: AO x 3
Objective Data
Lab Data
Lab Results
10/08/23 06:22
10/08/23 06:22
Estimated Creat Clear 91 ml/min 10/08/23 06:22
Lactic Acid Cancelled 09/21/23 21:27
Total Bilirubin 0.3 mg/dl (0.2-1.3) 10/02/23 06:16
AST 19 U/L (14-36) 10/02/23 06:16
ALT < 10 U/L (0-35) 10/02/23 06:16
Alkaline Phosphatase 122 U/L (38-126) 10/02/23 06:16
Most recent labs reviewed.
Micro Results:
09/23/23 20:16 Wound Culture - Final
Abdomen Escherichia coli
Viridans Streptococcus Group
Gram Stain - Final
09/21/23 23:25 Blood Culture - Final
Blood/Venous No Growth - Final Report
09/21/23 23:11 Blood Culture - Final
Blood/Venous No Growth - Final Report
09/23/23 09:07 Salmonella/Shigella Culture - Final
Feces/Stool No Salmonella, Shigella, Aeromonas or Plesiomonas species
isolated.
Campylobacter Culture - Final
No Campylobacter species isolated.
Shiga Toxin Test - Final
No E. coli Shiga Toxin 1 or 2 detected.
Stool Leukocytes - Final
09/21/23 21:38 Urine Culture - Final
Urine Escherichia coli
09/23/23 09:07 - Final
Feces/Stool Negative for Norovirus GI and GII.
09/23/23 04:12 C. difficile GDH Antigen & Toxins - Final
Feces/Stool Negative for toxigenic C.difficile
Wound/abscess/other Cult Final 09/23/23
Moderate Escherichia coli of two morphotypes
Moderate Viridans Streptococcus Group
Penicillin G or V with or without Gentamicin is the drug of
choice for treating Viridans Streptococcus Group. Please
notify the Microbiology Laboratory within 72 hours if
additional testing is needed.
Organism 1 Escherichia coli
1. Escherichia coli
M.I.C. RX
--------- ---
Amoxicillin/Potas. Clavulanate <=8/4 S
Ampicillin <=8 S
Ampicillin/Sulbactam <=8/4 S
Cefazolin <=2 S
Ertapenem <=0.5 S
Ciprofloxacin <=0.25 S
Gentamicin <=4 S
Levofloxacin <=0.5 S
Meropenem <=1 S
Piperacillin/Tazobactam <=16 S
Tobramycin <=4 S
Trimethoprim/Sulfamethoxazole <=2/38 S
Imaging:
09/23/2023 CT abdomen/pelvis with IV and oral contrast: Abnormal fluid collection in the right paracolic cutter measuring 6.8 x 3.6 x 4.8 cm immediately lateral to the appendix and adjacent to the cecum. Although the appendix is within the limits of
normal in caliber there are some accompanying inflammatory changes. Findings are suspicious for confined/contained perforated appendicitis or inflammatory/infectious process of the adjacent cecum such as perforated diverticulitis. No free air.
Likely accompanying small bowel ileus. Prior cholecystectomy.
09/28/2023 CT A/P: New mild appendiceal dilatation adjacent to known fluid collection with a new percutaneous drainage catheter. Findings concerning for probable acute appendicitis. . Associated small pockets of air likely due to infection or
perforation. Stable. Mild free fluid in the pelvis. Slightly progressed. Mild free fluid in paracolic gutters. Progressed on the right. New on the left.. All have mild rim enhancement suggesting developing infection versus loculated fluid. Clinical
and laboratory correlation recommended
[2023-10-08 15:36] VITALS: BP 109/59
[2023-10-08] MEDS: LOVENOX 40 MG SC (17:02)
[2023-10-08] MEDS: ROXICODONE 5 MG PO (19:27)
[2023-10-08] MEDS: MELATONIN 5 MG PO (19:27)
[2023-10-08] MEDS: BENADRYL 25 MG PO (21:13)
[2023-10-08 23:29] VITALS: BP 108/56
[2023-10-09] MEDS: ZOSYN 50 IV ×4 (05:36→23:37)
[2023-10-09] MEDS: SYNTHROID 150 MCG PO (05:36)
[2023-10-09 07:03] VITALS: BP 107/61
[2023-10-09 08:06] LABS: Hematocrit 31.5 % (37.0-47.0); Hemoglobin 10.2 g/dL (12.0-16.0); Mean Corp Hgb Conc. 32.4 g/dL (33.0-37.0); Mean Corpuscular Hgb 28.5 pg (27.0-31.0); Mean Platelet Volume 8.9 fL (7.4-10.4); Platelet Count 768 10^3/uL (130-400); Red Blood Cell Count 3.58 10^6/uL (4.20-5.40); Red Cell Dist. Width 13.2 % (11.5-14.5); White Blood Cell Count 13.4 10^3/uL (4.8-10.8)
[2023-10-09 08:23] LABS: Blood Urea Nitrogen 7 mg/dl (7-17); Calcium 8.5 mg/dl (8.4-10.2); Carbon Dioxide 25 mmol/L (22-30); Chloride 106 mmol/L (98-107); Estimated Creatinine Clearance 91 ml/min; Glucose 94 mg/dl (70-99); Magnesium 1.6 mg/dl (1.6-2.3); Phosphorus 4.4 mg/dl (2.5-4.5); Potassium 3.4 mmol/L (3.5-5.1); Sodium 139 mmol/L (135-145); eGFR > 60.00
[2023-10-09] MEDS: VISBIOME 1 CAP PO (08:38)
[2023-10-09] MEDS: TENORMIN PO (08:38)
[2023-10-09] MEDS: PROTONIX 40 MG PO (08:38)
[2023-10-09] MEDS: LIPITOR 10 MG PO (08:38)
[2023-10-09] MEDS: PAXIL 40 MG PO (08:38)
[2023-10-09] MEDS: FLUSH (NSS) 1 FLUSH IV (08:39)
--- NOTE | 2023-10-09 09:00 | W.PN.HOSP.TC ---
Today's Communication/Plan
-
see bold
Assessment / Plan
Assessment / Plan
Assessment:
Contained perforated appendicitis with abscess
- CT: Abnormal fluid collection in the right paracolic cutter measuring 6.8 x 3.6 x 4.8 cm immediately lateral to the appendix and adjacent to the cecum. Although the appendix is within the limits of normal in caliber there are some accompanying
inflammatory changes. Findings are suspicious for confined/contained perforated appendicitis or inflammatory/infectious process of the adjacent cecum such as perforated diverticulitis. No free air.
- s/p IRAD guided drainage 09/22; continues to have drainage/repeat CT scan performed 27 September slightly progressed free fluid in pelvis on the right and new on the left mild barium enhancement versus loculated fluid noted
-Surgery and in consultation with interventional radiology agreed to upper caliber and SARA drain now 8.5 [place]
- now with ecoli and viridans strep. ecoli is pansensitive. Asked infectious disease opinion regarding beta strep and possibly will need different antibiotics. ID following. Narrowed antibiotic to Unasyn
-Given smoldering clinical process with persistent drainage, as well as leukocytosis, decision made for surgical intervention.
� 10/02. Status post laparoscopic washout and drainage of intra-abdominal abscess with intraoperative finding including dense adhesions of small bowel and omentum, abscess pockets of the left lower quadrant, pelvis, right lower quadrant were broken
up and drained. 19 [place] Benjamin drain x 2 into the abdomen left lower quadrant into the pelvis and suprapubic and right lower quadrant.
Postoperative recovery: NG tube clamped and removed on 10/04.
-Tolerating solids, patient asking for regular low residue instead of diabetic diet 10/07
-Continue IV Zosyn as per ID, continue SARA drain to bulb suction
-ID says that patient can transition to oral antibiotics at time of discharge
-Leukocytosis stable, continue to trend fever and white count
E. Coli UTI
- From UTI standpoint she finished treatment
Acute hypoxic respiratory insufficiency likely secondary to atelectasis
-Resolved, she is currently satting 96% on room air
Insomnia
-Started melatonin and Benadryl
Mild hyponatremia
monitor
Suspect renal insufficiency
- reviewed previous 1 years worth of labs on her portal, baseline Cr 1.1
- hold nephrotoxic agents (chlorthalidone, benazepril)
-Creatinine normalized
Essential hypertension
Blood pressure remains soft. Resumed atenolol and monitor. Hold lisinopril and amlodipine for now.
Hypercholesterolemia
- continue statin
Type 2 diabetes
- diet controlled
- holding Mounjaro
Recent hemoglobin A1c as low as 5.
No need to monitor serial blood glucose at this point.
Hypothyroidism
- continue levothyroxine
Anxiety/depression
- continue Xanax
- continue paroxetine
Hypokalemia
- replete as needed
Obesity
DVT ppx: SC Lovenox
Code: Full
Total time spent to see the patient on the floor, examine the patient, review data and lab results, discuss treatment plan with patient, nursing staff around 35 minutes.
Physical Exam
General: Morbidly obese, no acute distress
HEENT: Normocephalic, Atraumatic, EOMI, MMM
Respiratory: Clear to Auscultation bilaterally
Cardiac: Normal S1/S2, Regular Rate and Rhythm
GI: Soft, mildly distended, severely obese, appropriately tender to palpation, SARA drain in place
Extremities: No Clubbing, Cyanosis, or Edema
Neuro: Nonfocal/Grossly Intact
Anticipated Discharge: 24 - 48 hours
Subjective/Interval History
-
Date of Service: October 09, 2023
Patient reports feeling better after sleeping last night. No fever, no chest pain, no shortness of breath. Denies abdominal pain. She is having bowel movements. She is tolerating her diet.
Objective Data
-
Labs:
Laboratory Results
10/09/23
07:17
WBC 13.4 H
Hgb 10.2 L
Hct 31.5 L
Plt Count 768 H
Sodium 139
Potassium 3.4 L
Chloride 106
Carbon Dioxide 25
BUN 7
Creatinine 0.8
Glucose 94
Calcium 8.5
Vital Signs:
Vital Signs
Temp Pulse Resp BP Pulse Ox
97.6 F 57 16 117/62 96
10/09/23 07:03 10/09/23 08:38 10/09/23 07:03 10/09/23 08:38 10/09/23 07:03
I&O
10/08/23 10/09/23 10/10/23
06:59 06:59 06:59
Intake Total 1660 / 1660 980 / 980
Output Total
Balance 1632 / 1632 958 / 958
[2023-10-09] MEDS: KCL 40 MEQ PO (09:54)
--- NOTE | 2023-10-09 10:42 | CM ---
Patient seen bedside, reports no concerns to CM at this time. Patient remains on IV antibiotics, per ID note, transition to oral antibiotics upon discharge. CM will continue to follow for all discharge planning needs.
Plan; home no needs anticipated.
--- NOTE | 2023-10-09 13:14 | W.PN.GS2 ---
Addendum entered and electronically signed by Rafael Diaz MD 10/09/23 14:31:
I saw and examined the patient.
The CLIENT EXPERIENCE CONSULTANT's note was reviewed and I agree with the note.
Comment:
No complaints, tolerating diet, having BMs
AFVSS, ABD S/ND/appropriately tender near incision, JPs with 20 mL dark serosang
�Continue regular diet
� Continue IV antibiotics; appreciate ID; persistent but improving leukocytosis
� Continue SARA to bulb suction
� OOB/IS
Dispo�would await normalization of leukocytosis prior to discharge; possibly tomorrow
Original Note:
Today's Communication / Plan
-
Continue with SARA's, trend CBC on ABX
Assessment / Plan
-
Assessment: 62 yo female with a h/o open cholecystectomy, DM and hypothyroid who presented with mid abdominal abdominal pain on 09/21/23. Initial CT read as relatively benign. UTI noted and antibiotics were initiated on presentation. She was not
improving clinically. WBC noted to be rising with no improvement/worsening in pain and thus repeat imaging was preformed with findings consistent with perforated appendicitis with abscess prompting subsequent surgical consultation.
s/p IR drain placement on 09/22
Urine cx +ecoli, Drain cx +ecoli and strep viridans. Blood cx NG
Rpt CT 09/27 with partially undrained RUQ collection and some new collections that are small and not amenable to drainage, and pelvic LUQ collections
s/p IR drain exchange on 09/28
POD#6 s/p laparoscopic (hand assisted abdominal washout with drain placement)
AFVSS
tolerating diet with passage of stools
JPs with clinical abstractor SSF, non bilious, not significantly purulent
Leukocytosis persists but now improving
Plan:
-- Continue diabetic diet
-- Pain: Tylenol, Toradol, Oxycodone prn.
-- continue JPs
-- Abx: Zosyn, ID on board
-- Trend CBC
-- OOB/ambulate as able
-- DVT ppx: Lovenox
-- GI ppx: Protonix po
If continues to progress well, may be ready from surgical standpoint for discharge tomorrow
Subjective Data
-
Date of Service: October 09, 2023
Patient seen and examined at bedside with Dr. Diaz. No new complaints. Tolerating diet with +BM's/flatus. Denies n/v. No fevers/chills.
Objective Data
-
Intake and Output
10/08/23 10/09/23 10/10/23
06:59 06:59 06:59
Intake Total 1660 / 1660 980 / 980
Output Total
Balance 1632 / 1632 958 / 958
Intake:
Oral fluids 960 / 960 780 / 780
IV fluids (Total) 500 / 500
IV piggybacks 200 / 200 200 / 200
Output:
Drain Output (Total) 20
Left Middle Abdomen [place]-
Nguyen B
Right Lower Abdomen [place]-
Nguyen A
Urine, Voided 2 / 2
Other:
Number of approximated MODERATE 2 4
amounts of urine
Vital Signs
Temp Pulse Resp BP Pulse Ox
97.6 F 57 16 117/62 96
10/09/23 07:03 10/09/23 08:38 10/09/23 07:03 10/09/23 08:38 10/09/23 07:03
Lab Results
10/09/23 07:17
10/09/23 07:17
Calcium 8.5 mg/dl (8.4-10.2) 10/09/23 07:17
Phosphorus 4.4 mg/dl (2.5-4.5) 10/09/23 07:17
Magnesium 1.6 mg/dl (1.6-2.3) 10/09/23 07:17
Total Bilirubin 0.3 mg/dl (0.2-1.3) 10/02/23 06:16
Direct Bilirubin 0.3 mg/dl (0.0-0.4) 09/23/23 05:21
AST 19 U/L (14-36) 10/02/23 06:16
ALT < 10 U/L (0-35) 10/02/23 06:16
Alkaline Phosphatase 122 U/L (38-126) 10/02/23 06:16
Total Protein 6.0 g/dl (6.3-8.2) L 10/02/23 06:16
Albumin 2.8 g/dl (3.5-5.0) L 10/02/23 06:16
Physical Exam
-
NAD AAOx3
ABD: soft, obese, nondistended, ND
midline incision with intact tabatha, port sites with intact glue
Drains with old blood noted (minimal outputs)
[2023-10-09 15:33] VITALS: BP 96/55
--- NOTE | 2023-10-09 16:10 | PTCARENOTE ---
Provided pt with verbal/demonstrated education how to empty SARA drains if pt goes home with them. Pt did a return demonstration without any difficulty.
[2023-10-09 16:12] VITALS: BP 100/54
[2023-10-09] MEDS: LOVENOX 40 MG SC (17:33)
[2023-10-09] MEDS: MELATONIN 5 MG PO (20:12)
[2023-10-09] MEDS: ROXICODONE 5 MG PO (20:14)
[2023-10-09] MEDS: BENADRYL 25 MG PO (21:00)
[2023-10-09 23:38] VITALS: BP 106/65
[2023-10-10] MEDS: ZOSYN 50 IV ×2 (05:19→12:15)
[2023-10-10] MEDS: SYNTHROID 150 MCG PO (05:19)
[2023-10-10 06:34] LABS: Hematocrit 33.7 % (37.0-47.0); Hemoglobin 10.4 g/dL (12.0-16.0); Mean Corp Hgb Conc. 30.9 g/dL (33.0-37.0); Mean Corpuscular Volume 90.8 fL (81.0-99.0); Mean Platelet Volume 9.1 fL (7.4-10.4); Platelet Count 705 10^3/uL (130-400); Red Blood Cell Count 3.71 10^6/uL (4.20-5.40); Red Cell Dist. Width 13.2 % (11.5-14.5); White Blood Cell Count 11.9 10^3/uL (4.8-10.8)
[2023-10-10 06:53] LABS: Blood Urea Nitrogen 8 mg/dl (7-17); Calcium 8.6 mg/dl (8.4-10.2); Carbon Dioxide 26 mmol/L (22-30); Chloride 106 mmol/L (98-107); Estimated Creatinine Clearance 91 ml/min; Glucose 88 mg/dl (70-99); Magnesium 1.6 mg/dl (1.6-2.3); Phosphorus 4.3 mg/dl (2.5-4.5); Potassium 3.6 mmol/L (3.5-5.1); Sodium 141 mmol/L (135-145); eGFR > 60.00
[2023-10-10 07:00] VITALS: BP 110/53
[2023-10-10] MEDS: TENORMIN PO (08:10)
[2023-10-10] MEDS: PAXIL 40 MG PO (08:12)
[2023-10-10] MEDS: PROTONIX 40 MG PO (08:12)
[2023-10-10] MEDS: VISBIOME 1 CAP PO (08:12)
[2023-10-10] MEDS: LIPITOR 10 MG PO (08:12)
[2023-10-10] MEDS: OMNIPAQUE 50 ML PO (08:37)
--- NOTE | 2023-10-10 10:21 | W.PN.GS2 ---
Today's Communication / Plan
-
20
Assessment / Plan
-
Assessment: 62 yo female with a h/o open cholecystectomy, DM and hypothyroid who presented with mid abdominal abdominal pain on 09/21/23. Initial CT read as relatively benign. UTI noted and antibiotics were initiated on presentation. She was not
improving clinically. WBC noted to be rising with no improvement/worsening in pain and thus repeat imaging was preformed with findings consistent with perforated appendicitis with abscess prompting subsequent surgical consultation.
s/p IR drain placement on 09/22
Urine cx +ecoli, Drain cx +ecoli and strep viridans. Blood cx NG
Rpt CT 09/27 with partially undrained RUQ collection and some new collections that are small and not amenable to drainage, and pelvic LUQ collections
s/p IR drain exchange on 09/28
POD#7 s/p laparoscopic (hand assisted abdominal washout with drain placement)
AFVSS
tolerating diet with passage of stools
JPs with shake backboard notcher SSF, non bilious, not significantly purulent
Leukocytosis persists but now improving
Plan:
-- CT abdomen pelvis with p.o. and IV contrast today. If no residual collections, as drain outputs appear low may remove drains prior to possible discharge today.
-- N.p.o. for now, can resume diabetic diet
-- Pain: Tylenol, Toradol, Oxycodone prn.
-- continue JPs
-- Abx: Zosyn, ID on board
-- Trend CBC
-- OOB/ambulate as able
-- DVT ppx: Lovenox
-- GI ppx: Protonix po
If continues to progress well, may be ready from surgical standpoint for discharge Today versus tomorrow
Time Spent
Total Time Spent with Patient (in minutes): 20
Subjective Data
-
Date of Service: October 10, 2023
Interval Events:
No acute events overnight. Slept well. Pain Controlled. Denies Nausea/Vomiting, +bowel function. Tolerating diet.
Objective Data
-
Intake and Output
10/09/23 10/10/23 10/11/23
06:59 06:59 06:59
Intake Total 980 / 980 560 / 560
Output Total 18
Balance 958 / 958 542 / 542
Intake:
Oral fluids 780 / 780 360 / 360
IV piggybacks 200 / 200 200 / 200
Output:
Drain Output (Total)
Left Middle Abdomen [place]-
Nguyen B
Right Lower Abdomen [place]-
Nguyen A
Urine, Voided 2 / 2
Other:
Number of approximated SMALL 2
amounts of urine
Number of approximated MODERATE 4 4
amounts of urine
Vital Signs
Temp Pulse Resp BP Pulse Ox
98 F 55 16 110/53 96
10/10/23 07:00 10/10/23 07:00 10/10/23 07:00 10/10/23 07:00 10/10/23 07:00
Lab Results
10/10/23 05:02
10/10/23 05:02
Calcium 8.6 mg/dl (8.4-10.2) 10/10/23 05:02
Phosphorus 4.3 mg/dl (2.5-4.5) 10/10/23 05:02
Magnesium 1.6 mg/dl (1.6-2.3) 10/10/23 05:02
Total Bilirubin 0.3 mg/dl (0.2-1.3) 10/02/23 06:16
Direct Bilirubin 0.3 mg/dl (0.0-0.4) 09/23/23 05:21
AST 19 U/L (14-36) 10/02/23 06:16
ALT < 10 U/L (0-35) 10/02/23 06:16
Alkaline Phosphatase 122 U/L (38-126) 10/02/23 06:16
Total Protein 6.0 g/dl (6.3-8.2) L 10/02/23 06:16
Albumin 2.8 g/dl (3.5-5.0) L 10/02/23 06:16
Physical Exam
-
GENERAL/NEURO: Awake, Alert, no distress
CHEST: Unlabored breathing on RA
ABDOMEN: Soft, obese, Non-Tender, Non-Distended
--- NOTE | 2023-10-10 13:17 | W.DS.TRANS ---
DC Summary - Qa Tester
-
Discharge Instructions:
Discharge Diagnosis/Procedures Abdominal abscess
Diet Diabetic, Carb Controlled
Activity No strenuous activity
Additional Activity Do not lift over 10-15 pounds for the next 4-6
weeks
Bathing Restrictions OK to Shower
Wound Care Ok to shower and wash your incisions gently with
soap and water. Surgical clips will be removed
during your follow up appointment with your
surgeon (14-21 days after surgery). Cover the
incision where your drain was with dry gauze
pads and change daily and as needed until
drainage no longer noted. Change the gauze
dressing over your SARA drain daily and as needed.
Detailed instructions included but please call
your surgeon's office if you have questions.
Instructions: How to Keep Track of Your Drainage
Stand-Alone Forms:
Changes to Home Medications: Yes
Discharge Medications:
DC Medications w/original date entered in [employer]
alprazolam 0.25 mg tablet 0.25 mg PO BID PRN anxiety 09/21/23
amlodipine 10 mg tablet 10 mg PO DAILY Blood Pressure 09/21/23
levothyroxine 150 mcg tablet 150 mcg PO DAILY Thyroid 09/21/23
paroxetine HCl 40 mg tablet 40 mg PO DAILY Mental Health 09/21/23
simvastatin 10 mg tablet 10 mg PO DAILY High Cholesterol 09/21/23
tirzepatide 10 mg/0.5 mL subcutaneous pen injector (Mounjaro) 10 mg SC TU@0800 weight loss 09/21/23
acetaminophen 325 mg tablet 650 mg (2 x 325 mg) PO Q4HPRN PRN mild pain #30 tabs 10/10/23
amoxicillin 875 mg-potassium clavulanate 125 mg tablet 1 tab PO BID #14 tabs 10/10/23
oxycodone 5 mg tablet 5 mg PO Q4HPRN PRN severe pain #20 tabs 10/10/23
pantoprazole 40 mg tablet,delayed release 40 mg PO DAILY #30 tabs 10/10/23
Home Medication Changes
Atenolol, chlorthalidone and benazepril stopped
Antibiotics for additional 7 days
Pending Results: No
--- NOTE | 2023-10-10 13:20 | CM ---
CM met with Ernesto today in her room. She is excited to be going home; her will be picking her up this afternoon.
Ernesto will take oral antibiotics at home; she has a drain that she is comfortable draining at home; home health services declined.
Plan: Discharge to home with family; no needs identified.
PCP: Soha Wagner
Pharmacy: [facility] in [place]
--- NOTE | 2023-10-10 13:57 | W.PN.ID1 ---
Date of Service
Date of Service: October 10, 2023
Today's Communication
Continue antibiotics. See below�
Assessment / Plan
Appendiceal abscess
- s/p laproscopic washout 10/02
Leukocytosis - trending down
Thrombocytosis
RYLEY; improved
HTN
Dyslipidemia
DM
Renal insufficiency
Hypothyroidism
Anxiety
Recommendations:
Leukocytosis improved today.
For potential discharge today. At D/C, transition to Augmentin 875 mg PO BID, for an additional 7 days.
����������������������������������������������������������
Chief Complaint
-: Leukocytosis and Other (Abdominal/appendiceal abscess.)
Subjective / Review of Systems
Review of Systems: No Fever and No Chills
Vital Signs / Physical Exam
Vital Signs
Vital Signs
Temp Pulse Resp BP Pulse Ox
98 F 56 16 110/53 96
10/10/23 07:00 10/10/23 08:10 10/10/23 07:00 10/10/23 08:10 10/10/23 07:50
Physical Exam
Constitutional: No Acute Distress, Comfortable and Non-toxic
Eyes: No Conjunctival Hemorrhage and Sclera Anicteric
Cardiovascular: S1/S2; Negative S3/S4
Pulmonary: Non Labored
Gastrointestinal: Soft, Non Tender, Non Distended and Other (Right SARA in place. Left SARA pulled earlier today.)
Skin: Warm and Dry; Negative Rash or Jaundice
Neurological: AO x 3
Psychological: Calm
Objective Data
Lab Data
Lab Results
10/10/23 05:02
10/10/23 05:02
Estimated Creat Clear 91 ml/min 10/10/23 05:02
Lactic Acid Cancelled 09/21/23 21:27
Total Bilirubin 0.3 mg/dl (0.2-1.3) 10/02/23 06:16
AST 19 U/L (14-36) 10/02/23 06:16
ALT < 10 U/L (0-35) 10/02/23 06:16
Alkaline Phosphatase 122 U/L (38-126) 10/02/23 06:16
Most recent labs reviewed.
Micro Results:
09/23/23 20:16 Wound Culture - Final
Abdomen Escherichia coli
Viridans Streptococcus Group
Gram Stain - Final
09/21/23 23:25 Blood Culture - Final
Blood/Venous No Growth - Final Report
09/21/23 23:11 Blood Culture - Final
Blood/Venous No Growth - Final Report
09/23/23 09:07 Salmonella/Shigella Culture - Final
Feces/Stool No Salmonella, Shigella, Aeromonas or Plesiomonas species
isolated.
Campylobacter Culture - Final
No Campylobacter species isolated.
Shiga Toxin Test - Final
No E. coli Shiga Toxin 1 or 2 detected.
Stool Leukocytes - Final
09/21/23 21:38 Urine Culture - Final
Urine Escherichia coli
09/23/23 09:07 - Final
Feces/Stool Negative for Norovirus GI and GII.
09/23/23 04:12 C. difficile GDH Antigen & Toxins - Final
Feces/Stool Negative for toxigenic C.difficile
Wound/abscess/other Cult Final 09/23/23
Moderate Escherichia coli of two morphotypes
Moderate Viridans Streptococcus Group
Penicillin G or V with or without Gentamicin is the drug of
choice for treating Viridans Streptococcus Group. Please
notify the Microbiology Laboratory within 72 hours if
additional testing is needed.
Organism 1 Escherichia coli
1. Escherichia coli
[facility] RX
--------- ---
Amoxicillin/Potas. Clavulanate <=8/4 S
Ampicillin <=8 S
Ampicillin/Sulbactam <=8/4 S
Cefazolin <=2 S
Ertapenem <=0.5 S
Ciprofloxacin <=0.25 S
Gentamicin <=4 S
Levofloxacin <=0.5 S
Meropenem <=1 S
Piperacillin/Tazobactam <=16 S
Tobramycin <=4 S
Trimethoprim/Sulfamethoxazole <=2/38 S
Imaging:
09/23/2023 CT abdomen/pelvis with IV and oral contrast: Abnormal fluid collection in the right paracolic cutter measuring 6.8 x 3.6 x 4.8 cm immediately lateral to the appendix and adjacent to the cecum. Although the appendix is within the limits of
normal in caliber there are some accompanying inflammatory changes. Findings are suspicious for confined/contained perforated appendicitis or inflammatory/infectious process of the adjacent cecum such as perforated diverticulitis. No free air.
Likely accompanying small bowel ileus. Prior cholecystectomy.
09/28/2023 CT A/P: New mild appendiceal dilatation adjacent to known fluid collection with a new percutaneous drainage catheter. Findings concerning for probable acute appendicitis. . Associated small pockets of air likely due to infection or
perforation. Stable. Mild free fluid in the pelvis. Slightly progressed. Mild free fluid in paracolic gutters. Progressed on the right. New on the left.. All have mild rim enhancement suggesting developing infection versus loculated fluid. Clinical
and laboratory correlation recommended
[2023-10-10 14:15] VITALS: BP 125/60
== END 2023-10-10 14:34 | disposition home or self-care (01) | DRG 357 ==
LOC: 4 EAST ACU 10:24
PROVIDERS: Clinical Nurse Specialist Family Health; Family Medicine; Internal Medicine; Radiology Diagnostic Radiology; Radiology Vascular & Interventional Radiology; Registered Nurse; Surgery; ADMITTING PHYSICIAN Hospitalist; ATTENDING PHYSICIAN Internal Medicine; CONSULT PHYSICIAN Surgery; EMERGENCY PHYSICIAN Emergency Medicine; FAMILY PHYSICIAN Family Medicine; OTHER PHYSICIAN Internal Medicine Infectious Disease
PROC: 0W9G3ZZ Drainage of Peritoneal Cavity, Percutaneous Approach (ICD-10-PCS; 2023-09-24)
PROC: 0W9G4ZZ Drainage of Peritoneal Cavity, Percutaneous Endoscopic Approach (ICD-10-PCS; 2023-10-03)
DX: K35.33 Acute appendicitis with perforation, localized peritonitis, and gangrene, with abscess (principal); E87.1 Hypo-osmolality and hyponatremia; J98.11 Atelectasis; N17.9 Acute kidney failure, unspecified; N39.0 Urinary tract infection, site not specified; Z68.41 Body mass index [BMI] 40.0-44.9, adult; E11.9 Type 2 diabetes mellitus without complications; K66.0 Peritoneal adhesions (postprocedural) (postinfection); I10 Essential (primary) hypertension; E78.00 Pure hypercholesterolemia, unspecified; F32.A Depression, unspecified; F41.9 Anxiety disorder, unspecified; E03.9 Hypothyroidism, unspecified; F17.200 Nicotine dependence, unspecified, uncomplicated; B96.20 Unspecified Escherichia coli [E. coli] as the cause of diseases classified elsewhere; E87.6 Hypokalemia; E66.01 Morbid (severe) obesity due to excess calories; R09.02 Hypoxemia; R06.89 Other abnormalities of breathing; Z79.899 Other long term (current) drug therapy; Z90.49 Acquired absence of other specified parts of digestive tract
CPT/HCPCS: 49406; 49423; 71046; 74177; 75984; 80048; 80053; 81003; 81015; 82248; 83605; 83690; 83735; 84100; 84132; 84484; 85025; 85027; 87015; 87040; 87045; 87046; 87070; 87071; 87086; 87088; 87186; 87205; 87324; 87427; 87449; 87798; 89055; 93005; 96361; 96374; 96375; 99152; 99285; C1729; C1769; Q9967

== ENCOUNTER → 2023-10-20 10:03 | Outpatient (REF) | payer OTHER, SELFPAY | LOC: RAD 10:03 | PROVIDERS: ATTENDING PHYSICIAN Surgery; FAMILY PHYSICIAN Family Medicine | DX: K35.32 Acute appendicitis with perforation, localized peritonitis, and gangrene, without abscess (principal) | CPT/HCPCS: 74177; Q9967 ==

== ENCOUNTER → 2023-10-24 12:25 | Outpatient (REF) | payer OTHER, SELFPAY ==
[2023-10-24 12:42] VITALS: BP 126/68; BP_SYST 89
[2023-10-24 14:00] VITALS: BP 111/52; BP_SYST 81
[2023-10-24 14:40] VITALS: BP 111/52; BP_SYST 81
[2023-10-24 14:45] VITALS: BP 106/91; BP_SYST 83
[2023-10-24 15:31] VITALS: BP 106/91
== END ==
LOC: RADI 12:25
PROVIDERS: ATTENDING PHYSICIAN Surgery
DX: K65.1 Peritoneal abscess (principal)
CPT/HCPCS: 49406; 87070; 87071; 87205; 99152

== ENCOUNTER → 2023-12-05 07:16 | Outpatient (REF) | payer OTHER, SELFPAY | LOC: RAD 07:16 | PROVIDERS: ATTENDING PHYSICIAN Surgery; FAMILY PHYSICIAN Family Medicine | DX: K35.33 Acute appendicitis with perforation, localized peritonitis, and gangrene, with abscess (principal) | CPT/HCPCS: 74177; Q9967 ==